=== PATIENT | male | born 1985 | race Hispanic/Latino ===

== ENCOUNTER 2017-01-04 14:38 | Emergency (ER) | payer SELFPAY ==
[2017-01-04] MEDS ORDERED: Ondansetron HCl/PF 4 MG/2 ML Vial ONE ×3 (15:02→16:27)
[2017-01-04 15:19] LABS: #Basophils 0.1 thou/uL (0.0-0.2); #Eosinphils 0.3 thou/uL (0.0-0.7); #Lymphocytes 2.5 thou/uL (1.20-3.40); %Basophils 0.6 % (0.0-1.0); %Eosinophils 1.8 % (0.0-10.0); Hematocrit 46.4 % (42.0-52.0); Mean Platelet Volume 7.3 fL (7.4-10.4); Red Blood Cell (RBC) Count 5.21 mill/uL (4.70-6.10); White Blood Cell (WBC) Count 14.9 thou/uL (4.8-10.8)
--- NOTE | 2017-01-04 15:32 | RAD ---
ABDOMEN ONE VIEW: 01/04/17 HISTORY: Crohn's disease. Abdominal pain. COMPARISON: 10/12/16. FINDINGS: Gas and stool overlie the colon and rectum. Small bowel gas pattern is nonspecific. Metallic clips o verlie the gallbladder fossa. IMPRESSION: No significant abnormalities are demonstrated. POS: [facility]
[2017-01-04 15:35] LABS: Lactic Acid - Sepsis 1.2 mmol/L (0.5-2.2)
[2017-01-04 15:45] LABS: ALT (SGPT) 23 U/L (8-55); AST (SGOT) 20 U/L (5-34); Alkaline Phosphatase 88 U/L (40-150); Anion Gap 15 mmol/L (10-20); BUN (Urea Nitrogen) 10 mg/dL (8.9-20.6); Bilirubin, Total 0.3 mg/dL (0.2-1.2); CK (CPK) 126 U/L (30-200); Calc. Creatinine Clearance 0 mL/min (70-130); Calcium 9.6 mg/dL (7.8-10.44); Carbon Dioxide 19 mmol/L (22-29); Chloride 105 mmol/L (98-107); Estimated GFR-MDRD Greater than 90; Globulin 3.8 g/dL (2.4-3.5); Lipase 14 U/L (8-78); Protein, Total 8.2 g/dL (6.0-8.3)
== END 2017-01-04 17:09 | disposition home or self-care (01) ==
LOC: ERS 14:38
DX: R10.30 Lower abdominal pain, unspecified (principal); Z79.899 Other long term (current) drug therapy
CPT/HCPCS: 74000; 80053; 82550; 83605; 83690; 85025; 96361; 96374; 96375; 96376; J2270; J2405

== ENCOUNTER 2017-02-07 14:36 | Emergency (ER) | payer SELFPAY ==
[2017-02-07 15:11] LABS: #Basophils 0.1 thou/uL (0.0-0.2); #Eosinphils 0.2 thou/uL (0.0-0.7); #Lymphocytes 3.1 thou/uL (1.20-3.40); #Monocytes 0.6 thou/uL (0.11-0.59); #Neutrophils 2.5 thou/uL (1.40-6.50); %Basophils 0.8 % (0.0-1.0); %Eosinophils 3.6 % (0.0-10.0); %Lymphocytes 47.5 % (21.0-51.0); %Monocytes 9.9 % (0.0-10.0); Hematocrit 44.5 % (42.0-52.0); Red Blood Cell (RBC) Count 4.88 mill/uL (4.70-6.10); White Blood Cell (WBC) Count 6.4 thou/uL (4.8-10.8)
[2017-02-07 15:23] LABS: Lactic Acid - Sepsis 1.2 mmol/L (0.5-2.2)
[2017-02-07 15:32] LABS: Bilirubin Negative (Negative); Blood, Urine Negative (Negative); Glucose, Urine (Dipstick) Negative (Negative); Ketone, Urine Negative (Negative); Nitrite Negative (Negative); Protein, Urine (Dipstick) Negative (Neg-Trace); Urobilinogen 0.2 mg/dL (0.2-1.0)
[2017-02-07 15:35] LABS: ALT (SGPT) 29 U/L (8-55); AST (SGOT) 20 U/L (5-34); Alkaline Phosphatase 76 U/L (40-150); Anion Gap 13 mmol/L (10-20); BUN (Urea Nitrogen) 9 mg/dL (8.9-20.6); Bilirubin, Total 0.3 mg/dL (0.2-1.2); Calc. Creatinine Clearance 0 mL/min (70-130); Calcium 9.9 mg/dL (7.8-10.44); Carbon Dioxide 24 mmol/L (22-29); Chloride 106 mmol/L (98-107); Estimated GFR-MDRD Greater than 90; Globulin 3.8 g/dL (2.4-3.5); Protein, Total 8.1 g/dL (6.0-8.3)
[2017-02-07] MEDS ORDERED: Ondansetron HCl/PF 4 MG/2 ML Vial ONE ×2 (15:47→15:48)
[2017-02-07] MEDS ORDERED: Ketorolac Tromethamine 30 MG/ML VIAL ONE ×2 (15:47→16:46)
--- NOTE | 2017-02-07 16:02 | RAD ---
ABDOMEN TWO VIEWS: ONE VIEW CHEST X-RAY: HISTORY: Abdominal pain. COMPARISON: Abdomen two views with one view chest x-ray from 10/12/2016. FINDINGS: The lungs are clear. There are right upper quadrant surgical clips. No dilated loops of large or small bowel. No free air in the hemidiaphragm on the upright view. IMPRESSION: Normal examination. POS: [facility]
[2017-02-07] MEDS ORDERED: predniSONE 20 MG TAB ONE (16:46)
== END 2017-02-07 17:22 | disposition home or self-care (01) ==
LOC: ERS 14:36
DX: K50.90 Crohn's disease, unspecified, without complications (principal); Z79.899 Other long term (current) drug therapy
CPT/HCPCS: 36415; 74022; 80053; 81003; 83605; 83690; 85025; 96361; 96374; 96375; 96376; J1885; J2405; J7506

== ENCOUNTER 2017-02-16 16:55 | Observation (INO) | payer SELFPAY ==
[2017-02-16 17:18] LABS: #Basophils 0.1 thou/uL (0.0-0.2); #Eosinphils 0.1 thou/uL (0.0-0.7); #Lymphocytes 2.9 thou/uL (1.20-3.40); #Monocytes 1.2 thou/uL (0.11-0.59); #Neutrophils 15.5 thou/uL (1.40-6.50); %Basophils 0.4 % (0.0-1.0); %Eosinophils 0.6 % (0.0-10.0); %Lymphocytes 14.8 % (21.0-51.0); %Monocytes 5.9 % (0.0-10.0); Hematocrit 44.6 % (42.0-52.0); Mean Platelet Volume 6.6 fL (7.4-10.4); Red Blood Cell (RBC) Count 4.95 mill/uL (4.70-6.10); White Blood Cell (WBC) Count 19.7 thou/uL (4.8-10.8)
[2017-02-16 17:40] LABS: ALT (SGPT) 32 U/L (8-55); AST (SGOT) 20 U/L (5-34); Alkaline Phosphatase 87 U/L (40-150); Anion Gap 17 mmol/L (10-20); BUN (Urea Nitrogen) 9 mg/dL (8.9-20.6); Bilirubin, Total 0.9 mg/dL (0.2-1.2); Calc. Creatinine Clearance 0 mL/min (70-130); Calcium 9.5 mg/dL (7.8-10.44); Carbon Dioxide 20 mmol/L (22-29); Chloride 101 mmol/L (98-107); Estimated GFR-MDRD Greater than 90; Globulin 3.8 g/dL (2.4-3.5); Lipase 6 U/L (8-78); Protein, Total 8.3 g/dL (6.0-8.3)
[2017-02-16 18:51] LABS: Bilirubin Negative (Negative); Blood, Urine Negative (Negative); Glucose, Urine (Dipstick) Negative (Negative); Ketone, Urine Negative (Negative); Nitrite Negative (Negative); Protein, Urine (Dipstick) Negative (Neg-Trace); Urobilinogen 0.2 mg/dL (0.2-1.0)
[2017-02-16 18:53] LABS: Bacteria/HPF None Seen HPF (None Seen); Hyaline Casts/LPF 0-3 HYALINE CAST LPF (0-3 Hyaline); Squamous Epithelial None Seen HPF (0-3); WBC/HPF None Seen HPF (0-3)
[2017-02-16] MEDS ORDERED: Ketorolac Tromethamine 30 MG/ML VIAL ONE (19:06)
[2017-02-16] MEDS ORDERED: Ondansetron HCl/PF 4 MG/2 ML Vial ONE (19:06)
--- NOTE | 2017-02-16 19:35 | RAD ---
ACUTE ABDOMINAL SERIES 02/16/17 COMPARISON: 02/07/17 INDICATION: Pain. FINDINGS: The lungs are clear. No free air beneath the hemidiaphragms. Bowel gas pattern is nonspecific. There are metallic clips of the right upper abdomen. IMPRESSION: No acute process identified. POS: H
[2017-02-16] MEDS ORDERED: Piperacillin/Tazobactam 4.5 GM in Sodium Chloride 0.9% 100 ML IVPB SCH (22:30)
[2017-02-17] MEDS ORDERED: Ondansetron ODT 4 MG TAB SL PRN (00:05)
[2017-02-17] MEDS ORDERED: Acetaminophen 325 MG TAB PO PRN (00:05)
[2017-02-17 00:13] VITALS: BMI 29.4
[2017-02-17] MEDS ORDERED: Sodium Chloride 0.9% 1,000 ML IV SCH (00:15)
[2017-02-17] MEDS: MORPHINE 10 MG/ML SYRINGE IV PRN ×3 (00:25→08:26)
[2017-02-17] MEDS: Ondansetron HCl/PF 4 MG/2 ML Vial IVP PRN ×2 (02:34→08:26)
[2017-02-17] MEDS ORDERED: Piperacillin/Tazobactam 4.5 GM in Sodium Chloride 0.9% 100 ML IVPB SCH (06:00)
[2017-02-17 11:44] VITALS: TEMP 97.8
--- NOTE | 2017-02-17 12:20 | HP ---
DATE OF ADMISSION: 02/17/2017 CHIEF COMPLAINT: Abdominal pain, nausea, vomiting and diarrhea. HISTORY OF PRESENT ILLNESS: This is a 31-year-old gentleman with a long history of protracted abdom inal pain. He was recently diagnosed over the past year with Crohn's colitis and was started on Hum baldemar injections by Dr. Zaragoza in 10/2016 and has had significant improvement of his symptoms since that time. He has had much fewer admissions for abdominal pain, he has able to tolerate a diet much bet ter. He was seen by Dr. Zaragoza in his office last week was started on oral Flagyl for a mild flare du e to pain, nausea, vomiting. His symptoms worsened 2 days ago. He stated his pain was severe with nausea, vomiting, and diarrhea, and poor p.o. intake. He presented to the emergency department last night, found to have evidence of a colitis flare, but no hematochezia. He has had significant impr ovement with IV morphine, IM Bentyl as well as started on antibiotics. PAST MEDICAL HISTORY: Crohn's colitis, functional diarrhea, chronic pain syndrome. PAST SURGICAL HISTORY: Appendectomy in 2011, right inguinal hernia in 2011, status post cholecystec donell, status post multiple colonoscopies. SOCIAL HISTORY: Former smoker. He quit last year, lives at home. He is unemployed. MEDICATIONS: Flagyl 500 mg twice a day for the past week, Humira 40 mg IM once a week. PSYCHIATRIC: History of anxiety and depression in the past, but much better now that his colitis is better controlled. ALLERGIES: None known. REVIEW OF SYSTEMS: As per the history of present illness. GENERAL: He denies any recent fevers, chills or recent illness. HEENT: Denies upper respiratory symptoms, no cough or congestion. CARDIAC: Denies chest pain, shortness of breath or palpitations. PULMONARY: Denies cough or hemoptysis. GASTROINTESTINAL: As per the history of present illness. Denies tarry stools. Denies blood in the stool. NEUROLOGIC: No weakness, seizures, or syncope. PSYCHIATRIC: Depression and anxiety are much better. OBJECTIVE: VITAL SIGNS: Temperature 97.8, T-max of 98.5, pulse of 82, respirations 18, blood pressure 120/78, pulse ox is 99% on room air. GENERAL: He is awake and alert, in no acute distress. He is resting comfortably in the bed. Mucos a is moist. NECK: Supple. HEART: Regular rate and rhythm without murmurs. LUNGS: Clear bilaterally. ABDOMEN: With positive bowel sounds throughout. He has diffuse tenderness, worse on the left side. No rebound or guarding. No hepatosplenomegaly. EXTREMITIES: No clubbing, cyanosis or edema. LABORATORY AND X-RAY FINDINGS: From last night; white blood cell count 19.7, hemoglobin and hematoc rit 14.9 and 44.6, platelets of 318, sodium 134, potassium 4.1, chloride 101, CO2 20, BUN and creati nine 9 and 0.81, serum glucose 90, calcium of 95. AST and ALT are normal. Lipase was normal at 6. Urinalysis was negative. Abdominal x-ray revealed no acute process. ASSESSMENT AND PLAN: 1. This is a 31-year-old gentleman with a history of Crohn's colitis, now with an apparent flare an elevated white blood cell count. I agree with admission. I will continue IV Zosyn until infectiou s etiology is ruled out. The patient appears to have improved with IM Bentyl, will continue that as well and consult Dr. Zaragoza for evaluation. 2. Leukocytosis. We will repeat CBC as well as continuing antibiotics at this time. 3. History of chronic pain, appears to be better on the Humira. Continue plan per Gastroenterology .
[2017-02-17] MEDS: Morphine PF 1 MG/ML SYR IVP PRN ×2 (12:24→16:05)
[2017-02-17 12:45] LABS: #Basophils 0.1 thou/uL (0.0-0.2); #Eosinphils 0.2 thou/uL (0.0-0.7); #Lymphocytes 2.9 thou/uL (1.20-3.40); #Monocytes 0.7 thou/uL (0.11-0.59); #Neutrophils 4.1 thou/uL (1.40-6.50); %Basophils 1.1 % (0.0-1.0); %Eosinophils 1.9 % (0.0-10.0); %Lymphocytes 36.2 % (21.0-51.0); %Monocytes 8.7 % (0.0-10.0); Hematocrit 42.2 % (42.0-52.0); Mean Platelet Volume 6.8 fL (7.4-10.4); Red Blood Cell (RBC) Count 4.59 mill/uL (4.70-6.10); White Blood Cell (WBC) Count 7.9 thou/uL (4.8-10.8)
[2017-02-17] MEDS ORDERED: Piperacillin/Tazobactam 4.5 GM, Admixture Fee 1 EACH in Sodium Chloride 0.9% 100 ML IVPB SCH (14:00)
[2017-02-17 16:12] VITALS: BP 106/67
--- NOTE | 2017-02-18 14:46 | DIS ---
DATE OF ADMISSION: 02/17/2017 DATE OF AMA: 02/17/2017 ADMISSION DIAGNOSIS: Crohn's colitis flare. HOSPITAL COURSE: This is a 31-year-old gentleman with a history of Crohn's colitis. He has had sev eral years of protracted abdominal pain. He has been doing much better since he was started on Humi ra injections in 10/2016. He was admitted for worsening abdominal pain. He had significant improve ment in the ER with IV morphine, IM Bentyl and antibiotics. There was some concern about infectious colitis, was recommended that he continue on the IV Zosyn until he is seen by GI especially due to his increased white blood cell count. After admission, the patient did not want await any more for the Gastroenterology to evaluate him. He understands the risk, he wanted to leave against medical a dvice. He was told that he would not be able to follow up with my office and would be dismissed fro m our practice, which he leaves against medical advice and [facility]
== END 2017-02-17 17:48 | disposition left against medical advice (07) ==
LOC: ERS 16:55 → T4-A 02-17 00:04
PROVIDERS: ADMIT Family Medicine; ATTEND Family Medicine
DX: K50.90 Crohn's disease, unspecified, without complications (principal); K59.1 Functional diarrhea; G89.4 Chronic pain syndrome; F41.8 Other specified anxiety disorders; D72.829 Elevated white blood cell count, unspecified; Z79.899 Other long term (current) drug therapy; Z90.49 Acquired absence of other specified parts of digestive tract; Z98.890 Other specified postprocedural states; Z87.891 Personal history of nicotine dependence
CPT/HCPCS: 36415; 74022; 80053; 81003; 81015; 83690; 85025; 87040; 96361; 96365; 96366; 96372; 96375; 96376; G0378; J1885; J2270; J2274; J2405; J2543; J7050

== ENCOUNTER 2017-05-11 13:36 | Emergency (ER) | payer OTHER, SELFPAY ==
[2017-05-11 14:02] LABS: #Basophils 0.1 thou/uL (0.0-0.2); #Eosinphils 0.1 thou/uL (0.0-0.7); #Lymphocytes 3.2 thou/uL (1.20-3.40); #Monocytes 0.9 thou/uL (0.11-0.59); #Neutrophils 9.2 thou/uL (1.40-6.50); %Basophils 0.5 % (0.0-1.0); %Eosinophils 0.8 % (0.0-10.0); %Lymphocytes 23.6 % (21.0-51.0); %Monocytes 6.5 % (0.0-10.0); %Neutrophils 68.5 % (42.0-75.0); Hemoglobin 14.3 g/dL (14.0-18.0); Mean Corpuscular Hemoglobin 31.1 pg (27.0-31.0); Mean Platelet Volume 6.8 fL (7.4-10.4); Platelet Count 332 thou/uL (130-400); RBC Distribution Width 12.4 % (11.5-14.5); Red Blood Cell (RBC) Count 4.61 mill/uL (4.70-6.10); White Blood Cell (WBC) Count 13.5 thou/uL (4.8-10.8)
[2017-05-11 14:20] LABS: ALT (SGPT) 22 U/L (8-55); AST (SGOT) 19 U/L (5-34); Albumin 4.4 g/dL (3.5-5.0); Alkaline Phosphatase 81 U/L (40-150); Anion Gap 14 mmol/L (10-20); BUN (Urea Nitrogen) 17 mg/dL (8.9-20.6); Bilirubin, Total 0.6 mg/dL (0.2-1.2); Calc. Creatinine Clearance 0 mL/min (70-130); Calcium 9.4 mg/dL (7.8-10.44); Carbon Dioxide 22 mmol/L (22-29); Chloride 104 mmol/L (98-107); Estimated GFR-MDRD Greater than 90; Globulin 3.5 g/dL (2.4-3.5); Glucose 110 mg/dL (70-105); Lipase 9 U/L (8-78); Potassium 3.8 mmol/L (3.5-5.1); Protein, Total 7.9 g/dL (6.0-8.3); Sodium 136 mmol/L (136-145)
[2017-05-11 15:26] LABS: Bilirubin Negative (Negative); Blood, Urine Negative (Negative); Clarity CLEAR (Clear); Glucose, Urine (Dipstick) Negative (Negative); Leukocyte Negative (Negative); Nitrite Negative (Negative); Protein, Urine (Dipstick) Negative (Neg-Trace); Specific Gravity, Urine 1.028 (1.002-1.036); Urobilinogen 0.2 mg/dL (0.2-1.0)
[2017-05-11] MEDS ORDERED: Ondansetron HCl/PF 4 MG/2 ML Vial ONE (17:56)
[2017-05-11] MEDS ORDERED: predniSONE 20 MG TAB ONE (19:33)
== END 2017-05-11 20:18 | disposition home or self-care (01) ==
LOC: ERS 13:36
DX: K50.90 Crohn's disease, unspecified, without complications (principal)
CPT/HCPCS: 36415; 80053; 81003; 83690; 85025; 85652; 86140; 96372; 96374; 96375; J2270; J2405; J7506

== ENCOUNTER 2017-06-15 07:43 | Inpatient (IN) | payer SELFPAY ==
[2017-06-15] MEDS ORDERED: Ondansetron HCl/PF 4 MG/2 ML Vial ONE (08:00)
[2017-06-15 08:20] LABS: #Eosinphils 0.1 thou/uL (0.0-0.7); #Lymphocytes 1.6 thou/uL (1.20-3.40); #Monocytes 0.9 thou/uL (0.11-0.59); #Neutrophils 14.3 thou/uL (1.40-6.50); %Basophils 0.1 % (0.0-1.0); %Eosinophils 0.5 % (0.0-10.0); %Lymphocytes 9.4 % (21.0-51.0); %Monocytes 5.3 % (0.0-10.0); %Neutrophils 84.7 % (42.0-75.0); Hemoglobin 15.2 g/dL (14.0-18.0); Mean Corpuscular HGB CONC 32.9 g/dL (32.0-36.0); Mean Corpuscular Hemoglobin 29.5 pg (27.0-31.0); Mean Corpuscular Volume 89.5 fl (80.0-94.0); Mean Platelet Volume 7.2 fL (7.4-10.4); Platelet Count 311 thou/uL (130-400); RBC Distribution Width 12.6 % (11.5-14.5); Red Blood Cell (RBC) Count 5.14 mill/uL (4.70-6.10); White Blood Cell (WBC) Count 16.9 thou/uL (4.8-10.8)
[2017-06-15 08:24] LABS: ALT (SGPT) 20 U/L (8-55); AST (SGOT) 16 U/L (5-34); Albumin 4.7 g/dL (3.5-5.0); Alkaline Phosphatase 88 U/L (40-150); Anion Gap 13 mmol/L (10-20); BUN (Urea Nitrogen) 10 mg/dL (8.9-20.6); Bilirubin, Total 0.9 mg/dL (0.2-1.2); Calc. Creatinine Clearance 0 mL/min (70-130); Calcium 10.1 mg/dL (7.8-10.44); Carbon Dioxide 25 mmol/L (22-29); Chloride 103 mmol/L (98-107); Estimated GFR-MDRD Greater than 90; Globulin 3.6 g/dL (2.4-3.5); Glucose 101 mg/dL (70-105); Lipase 8 U/L (8-78); Potassium 4.5 mmol/L (3.5-5.1); Protein, Total 8.3 g/dL (6.0-8.3); Sodium 136 mmol/L (136-145)
[2017-06-15 08:58] LABS: Bilirubin Negative (Negative); Blood, Urine Negative (Negative); Clarity CLEAR (Clear); Glucose, Urine (Dipstick) Negative (Negative); Leukocyte Negative (Negative); Nitrite Negative (Negative); Protein, Urine (Dipstick) Negative (Neg-Trace); Specific Gravity, Urine 1.018 (1.002-1.036); Urobilinogen 0.2 mg/dL (0.2-1.0)
--- NOTE | 2017-06-15 11:07 | RAD ---
KUB AND UPRIGHT: History: Abdominal pain. History of Crohn's disease. Comparison: 09-27-16 FINDINGS: Bowel gas pattern is nonobstructed. The upright film does not include the entire right hemidiaphragm. Only a small portion is excluded. I do not see any signs of free air. It is conceivable that a tiny amount of free air could be missed and if this of clinical concern, then repeat upright film would be suggested. There is evidence of some fluid filled distention to what appears to be a proximal small bowel loops but I see no evidence of obstruction. Post op cholecystectomy changes are noted. IMPRESSION: Minimal fluid filled distention of the bowel loops in the left midabdomen, probably a proximal small bowel loops. No signs that suggest obstruction. POS: [facility]
[2017-06-15 11:19] LABS: Magnesium 2.2 mg/dL (1.6-2.6); Phosphorus 3.2 mg/dL (2.3-4.7)
[2017-06-15 12:15] LABS: Amphetamine Not Detected (NotDetected); Barbiturates Screen Not Detected (NotDetected); Benzodiazepine Screen Not Detected (NotDetected); Cocaine Metabolite Screen Not Detected (NotDetected); Medtox Control Line Valid? VALID (VALID); Medtox Reader # READER 1; Methadone Not Detected (NotDetected); Methamphetamine Not Detected (NotDetected); Opiate Screen Detected (NotDetected); Oxycodone Screen Not Detected (NotDetected); Phencyclidine (PCP) Not Detected (NotDetected); THC/Cannabinoid Screen Not Detected (NotDetected); Tricyclic Screen Not Detected (NotDetected)
[2017-06-15 12:25] VITALS: BMI 29.5
[2017-06-15] MEDS ORDERED: Acetaminophen 325 MG TAB PO PRN (12:31)
[2017-06-15] MEDS ORDERED: Ondansetron ODT 4 MG TAB PO PRN (12:31)
[2017-06-15] MEDS ORDERED: Ondansetron HCl/PF 4 MG/2 ML Vial IVP PRN (12:31)
[2017-06-15] MEDS ORDERED: Calcium Carbonate 500 MG ChewTAB PO PRN (12:31)
[2017-06-15] MEDS: Morphine 2 MG/ML SYRINGE SLOW IVP PRN ×3 (12:55→21:38)
[2017-06-15] MEDS: Sodium Chloride 0.9% 1,000 ML IV SCH ×2 (12:57→20:00)
[2017-06-15] MEDS: HYDROcodone/Acetaminophen 5/325 mg Tablet PO PRN ×2 (14:41→19:54)
--- NOTE | 2017-06-15 20:40 | PDOC.PN ---
- Subjective Encounter Start Date: 06/15/17 Encounter Start Time: 17:00 Patient seen and examined. - Objective Resuscitation Status: Resuscitation Status FULL:Full Resuscitation MAR Reviewed: Yes Vital Signs & Weight: Vital Signs (12 hours) Temp Pulse Resp BP BP Pulse Ox 06/15/17 19:52 98 F 65 18 102/71 96 06/15/17 16:00 98.2 F 60 20 106/68 96 06/15/17 12:30 97.6 F 73 18 06/15/17 12:24 97.6 F 73 18 113/74 96 Weight Weight 200 lb I&O: 06/14/17 06/15/17 06/16/17 06:59 06:59 06:59 Intake Total 1470 Balance 1470 Result Diagrams: 06/16/17 03:51 06/16/17 03:51 Radiology Reviewed by me: Yes (Abd series - No obstruction) Phys Exam - Physical Examination Pt in mild distress due to abd pain HEENT: PERRLA, moist MMs, sclera anicteric Neck: no nodes, no JVD, supple Respiratory: no wheezing, no rales, no rhonchi, clear to auscultation bilateral Cardiovascular: RRR, no significant murmur, no rub no heaves/pulsation Gastrointestinal: soft, no distention, positive bowel sounds mild tenderness maily in RLQ Musculoskeletal: no edema Neurological: non-focal, normal sensation, moves all 4 limbs Psychiatric: normal affect, A&O x 3 Skin: no rash Dx/Plan - Plan out of bed/ambulate, DVT proph w/SCDs * Please see H&P Review of Systems - Review of Systems Constitutional: chills. negative: fever, sweats, weakness, malaise Eyes: negative: Pain, Vision Change, Conjunctivae Inflammation, Eyelid Inflammation, Redness ENT: Mouth Pain (intermittent - improved now). negative: Ear Pain, Ear Discharge, Nose Pain, Nose Discharge, Nose Congestion, Mouth Swelling, Throat Pain, Throat Swelling, Other Respiratory: negative: Cough, Dry, Shortness of Breath, Hemoptysis, SOB with Excertion, Pleuritic Pain, Sputum, Wheezing Cardiovascular: negative: chest pain, palpitations, orthopnea, paroxysmal nocturnal dyspnea, edema, light headedness, other Gastrointestinal: Nausea, Abdominal Pain. negative: Vomiting, Diarrhea, Constipation, Melena, Hematochezia Genitourinary: negative: Dysuria, Frequency, Incontinence, Hematuria, Retention Musculoskeletal: negative: Neck Pain, Shoulder Pain, Arm Pain, Back Pain, Hand Pain, Leg Pain, Foot Pain Skin: Rash (over the groin - maculopapular, no erythema). negative: Lesions, Ruddy, Bruising, Other Neurological: Weakness, Numbness, Incoordination, Change in Speech, Confusion, Seizures, Other - Medications/Allergies Allergies/Adverse Reactions: Allergies Allergy/AdvReac Type Severity Reaction Status Date / Time No Known Drug Allergies Allergy Verified 02/17/17 00:07 Medications: Current Medications Acetaminophen (Tylenol) 650 mg PO Q4H PRN PRN Reason: Headache/Fever or Pain Hydrocodone Bitart/Acetaminophen ([place] 5/325) 1 tab PO Q4H PRN PRN Reason: Moderate Pain (4-6) Last Admin: 06/15/17 19:54 Dose: 1 tab Calcium Carbonate (Tums) 1,000 mg PO Q4H PRN PRN Reason: Heartburn or Indigestion Famotidine (Pepcid) 20 mg SLOW IVP Q12HR [facility] Last Admin: 06/15/17 19:56 Dose: 20 mg Sodium Chloride (Normal Saline 0.9%) 1,000 mls @ 125 mls/hr IV .Q8H [facility] Last Admin: 06/15/17 20:00 Dose: 1,000 mls Morphine Sulfate (Morphine) 2 mg SLOW IVP Q4H PRN PRN Reason: Severe Pain (7-10) Last Admin: 06/15/17 17:10 Dose: 2 mg Ondansetron HCl (Zofran Odt) 4 mg PO Q6H PRN PRN Reason: Nausea/Vomiting Ondansetron HCl (Zofran) 4 mg IVP Q6H PRN PRN Reason: Nausea/Vomiting Last Admin: 06/15/17 17:12 Dose: 4 mg Sodium Chloride (Flush - Normal Saline) 10 ml IVF Q12HR [facility] Last Admin: 06/15/17 20:18 Dose: Not Given Sodium Chloride (Flush - Normal Saline) 10 ml IVF PRN PRN PRN Reason: Saline Flush
[2017-06-15] MEDS ORDERED: Famotidine/PF 20 mg/2ml Vial SLOW IVP SCH (21:00)
[2017-06-16] MEDS: Morphine 2 MG/ML SYRINGE SLOW IVP PRN ×6 (01:03→23:20)
[2017-06-16] MEDS: HYDROcodone/Acetaminophen 5/325 mg Tablet PO PRN ×5 (02:28→20:40)
[2017-06-16 04:24] LABS: #Lymphocytes 0.9 thou/uL (1.20-3.40); #Monocytes 0.1 thou/uL (0.11-0.59); #Neutrophils 6.6 thou/uL (1.40-6.50); %Basophils 0.2 % (0.0-1.0); %Eosinophils 0.2 % (0.0-10.0); %Lymphocytes 11.6 % (21.0-51.0); %Monocytes 0.7 % (0.0-10.0); %Neutrophils 87.3 % (42.0-75.0); Hemoglobin 13.9 g/dL (14.0-18.0); Mean Corpuscular HGB CONC 33.5 g/dL (32.0-36.0); Mean Corpuscular Hemoglobin 30.1 pg (27.0-31.0); Platelet Count 278 thou/uL (130-400); RBC Distribution Width 12.4 % (11.5-14.5); Red Blood Cell (RBC) Count 4.61 mill/uL (4.70-6.10); White Blood Cell (WBC) Count 7.5 thou/uL (4.8-10.8)
[2017-06-16 04:40] LABS: ALT (SGPT) 35 U/L (8-55); AST (SGOT) 22 U/L (5-34); Albumin 4.2 g/dL (3.5-5.0); Alkaline Phosphatase 79 U/L (40-150); Anion Gap 11 mmol/L (10-20); BUN (Urea Nitrogen) 9 mg/dL (8.9-20.6); Bilirubin, Total 0.5 mg/dL (0.2-1.2); Calc. Creatinine Clearance 175 mL/min (70-130); Calcium 9.7 mg/dL (7.8-10.44); Carbon Dioxide 28 mmol/L (22-29); Chloride 102 mmol/L (98-107); Estimated GFR-MDRD Greater than 90; Globulin 3.3 g/dL (2.4-3.5); Glucose 123 mg/dL (70-105); Potassium 4.3 mmol/L (3.5-5.1); Protein, Total 7.5 g/dL (6.0-8.3); Sodium 137 mmol/L (136-145)
--- NOTE | 2017-06-16 04:55 | CON ---
DATE OF CONSULTATION: 06/15/2017 REASON FOR CONSULTATION: Probable Crohn's flare. CONSULTING PHYSICIAN: Salvador Hdz M.D. HISTORY OF PRESENT ILLNESS: The patient is a 31-year-old male with past medical history of GERD, IBS , diverticulosis and small bowel Crohn's disease presenting with complaints of increased abdominal pa in. He states that he was in his usual state of health until approximately 1 week ago when he starte d having increased abdominal pain located primarily in the right upper quadrant/right flank character ized as a sharp stabbing type pain where he further describes it as "it felt like my guts were about to bust open." There were no clear alleviating or exacerbating factors and was because of this that ultimately led him to seek healthcare assistance. He also endorses increased nausea and bilious nonb loody emesis, subjective chills, diarrhea for approximately 2 days, but that self resolved and the ap pearance of small mouth ulcers during the same time. Upon review of his GI clinic notes, he has been noted to have multiple flares over the last year, approximately every 2-3 months with his most recen t hospitalization in 02/2017 for which he left AMA prior to evaluation by GI. He is currently taking Humira 40 mg weekly with no additional therapy. The diagnosis of small bowel Crohn's was made on ca psule endoscopy obtained in late 2015/early 2016 after negative EGD and colonoscopy for origin of the disease. When compared to his presenting complaints of Crohn's disease back then, the abdominal monet n on this admission is consistent with his previous flares. REVIEW OF SYSTEMS: A 10-category review of systems was obtained with all responses negative except f or the pertinent positives as listed in the HPI. PAST MEDICAL HISTORY: Per HPI. PAST SURGICAL HISTORY: Hernia repair, appendectomy, cholecystectomy. FAMILY HISTORY: Colon cancer, maternal grandmother, colon polyps in his mother, ulcerative colitis i n both his mother and brother. SOCIAL HISTORY: Denies any alcohol or illicit drug use, but does vape on occasion. INPATIENT MEDICATIONS: Reviewed. ALLERGIES: No known drug allergies. PHYSICAL EXAMINATION: VITAL SIGNS: Temperature 98, pulse 65, blood pressure 102/71, respiratory rate 18, satting 96% on ro om air. GENERAL: The patient is lying in bed in no acute distress. Alert and oriented x4. NECK: Supple. No JVD noted. CARDIOVASCULAR: Regular rate and rhythm with no discernible murmurs, gallops or rubs. RESPIRATORY: Clear to auscultation bilaterally with no discernible wheezes or rales. ABDOMEN: Normoactive bowel sounds, soft, nondistended. Tenderness to palpation in the midepigastric right upper quadrant and right flank. EXTREMITIES: No cyanosis, clubbing or edema. LABORATORY DATA: CBC with a white blood cell count of 16.9, hemoglobin 15.2, hematocrit 46.1, platel ets 311. Chemistry with a sodium 136, potassium 4.5, chloride 103, CO2 is 25, BUN 10, creatinine 0.7 7, glucose 101, AST 16, ALT 20, alkaline phosphatase 88, total bilirubin 0.9. Infectious stool studi es were negative for E. coli, Campylobacter, Shigella and Clostridium difficile. IMAGING DATA: Abdominal x-ray obtained on admission showed minimal fluid filled distention of the slava wel loops in the left mid abdomen, proximal small bowel loops, but no signs to suggest obstruction. ASSESSMENT AND PLAN: The patient is a 31-year-old male with past medical history of gastroesophageal reflux disease, irritable bowel syndrome, diverticulosis and small bowel Crohn's presenting with pro bable Crohn's flare. Crohn's flare. The patient is presenting with flare of right upper quadrant abdominal pain consisten t with his prior flares of Crohn's disease characterized as sharp, stabbing in nature and associated with nausea, vomiting, and mouth ulcers. He is currently taking Humira 40 mg weekly as part of his o utpatient regimen for control of Crohn's disease with unknown medications added to this regimen in th e past including azathioprine or 6-mercaptopurine. Given the negative infectious stool studies that have been performed thus far, IV steroids should be considered for administration given lack of infec tion and response to steroids in the past for his Crohn's flares. RECOMMENDATIONS: 1. We will continue to follow up on stool culture for any possible infectious pathogens contributing to current Crohn's flare. We will continue Humira 40 mg weekly. If the patient is in the hospital, we will administer that at the prescribed timing. 2. We will start patient on methylprednisolone 40 mg t.i.d. as part of therapy for probable Crohn's flare. 3. We will continue with IV fluids as you are doing, but advance diet as tolerated with weaning back of the IV fluids as he tolerates more and more oral intake. 4. Pain control per primary team. We will continue to follow. Please call with any questions.
[2017-06-16] MEDS: Sodium Chloride 0.9% 1,000 ML IV SCH ×3 (04:56→15:40)
--- NOTE | 2017-06-16 06:13 | HP ---
PRIMARY CARE PHYSICIAN: None at this time. The patient has seen Dr. Fischer in the past. CHIEF COMPLAINT: Abdominal discomfort of 2-3 days duration. HISTORY OF PRESENT ILLNESS: The patient is a 31-year-old male with Crohn's disease, current ly on Humira presented to the Emergency Room with abdominal discomfort that has been intermittent ove r the last 2 months. The pain got worse over the past couple of days. He also has nausea without an y vomiting. The pain was mainly on the right lower quadrant and the suprapubic region. It was achin g, sharp in nature, 10/10, without any relieving factor. The pain was worse on movement and eating. He normally follows with Dr. Zaragoza, Gastroenterology, and is currently on Humira. He also had chills ; however, denies any fever. He denies any diarrhea that is different from his baseline. In the emergency room, his abdominal x-ray was negative for obstructive pathology. He was started on IV fluids. His CRP was 10.98. LFTs were normal. WBC count was 16.9 with 84.7% neutrophils. He re ceived total of 8 mg morphine with Zofran and IV fluid in the emergency room. The case was discussed with Gastroenterology feed preparation operator who recommended stool workup. PAST MEDICAL HISTORY: 1. Crohn's disease. 2. Irritable bowel syndrome. 3. Diverticulosis. 4. Gastroesophageal reflux disease. PAST SURGICAL HISTORY: 1. Appendectomy in 2011. 2. Right inguinal hernia repair in 2011. 3. Cholecystectomy. 4. Multiple colonoscopies. ALLERGIES: No known drug allergies. CURRENT HOME MEDICATIONS: Humira every weekly, Protonix 40 mg daily. SOCIAL HISTORY: The patient currently lives at home. Denies any current use of smoking, alcohol or drug use. FAMILY HISTORY: Negative for premature coronary artery disease. Colon cancer in the maternal grandm other. Ulcerative colitis in both parents. REVIEW OF SYSTEMS/PHYSICAL EXAMINATION/LABORATORY FINDINGS: Please refer to my progress note. IMPRESSION: 1. Crohn's flare. 2. Gastroesophageal reflux disease. 3. Irritable bowel syndrome. 4. Diverticulosis. 5. Abdominal pain secondary to #1. 6. Elevated inflammatory markers. 7. Leukocytosis secondary to #1. PLAN: 1. The patient will be monitored on the medical floor. GI will be consulted. Clear liquid diet. I V hydration. 2. Gastrointestinal prophylaxis. Stool workup has been sent and pending at this time. 3. Pain controlled. 4. Will hold IV steroids and antibiotics per GI. Plan of care was discussed with the patient in detail. He stated understanding. The patient will pr obably require 2-3 days for stabilization.
[2017-06-16] MEDS: Calcium Carbonate + Vit D 1 TAB PO SCH ×2 (09:17→16:12)
[2017-06-16 15:25] LABS: Routine O & P Final report (.)
--- NOTE | 2017-06-16 19:04 | PRG ---
DATE OF SERVICE: 06/16/2017 REASON FOR CONSULTATION: Probable Crohn's flare. SUBJECTIVE: Patient is doing well overnight with decreased pain today. He continues to have pain lo cated primarily in the right side of his abdomen, but is now 5-7/10 in severity and has improved when compared to admission. Overnight, denies any nausea, vomiting, fevers, chills, or GI bleeding. OBJECTIVE: VITAL SIGNS: Temperature 98.3, pulse 95, blood pressure 119/70, respiratory rate 16, satting 99% on room air. GENERAL: Patient is lying in bed in no acute distress. Alert and oriented x4. CARDIOVASCULAR: Regular rate and rhythm with no discernible murmurs, gallops, or rubs. RESPIRATORY: Clear to auscultation bilaterally with no discernible wheezes or rales. ABDOMEN: Normoactive bowel sounds, soft, nondistended, mild tenderness to palpation in the midepigas tric, right upper quadrant, and right flank. EXTREMITIES: No cyanosis, clubbing, or edema. LABORATORY DATA: CBC with a white blood cell count of 7.5, hemoglobin 13.9, hematocrit 41.5, platele ts 278. Chemistry with sodium of 137, potassium 4.3, chloride 102, carbon dioxide 28, BUN 9, creatin ine 0.78, glucose 123. IMAGING DATA: No current GI imaging is available for review. ASSESSMENT AND PLAN: The patient is a 31-year-old male with past medical history of gastroesophageal reflux disease, irritable bowel syndrome, diverticulosis, and small bowel Crohn's presenting with pr obable Crohn's flare. Crohn's flare: Patient is presenting with flare of right upper quadrant abdominal pain consistent wi th his prior flares of Crohn's disease in the past despite taking Humira 40 mg weekly. However, sinc e admission to the hospital, he has had negative workup for infectious etiology, there was subsequent ly placed on IV steroids and has been responding well thus far. Currently, with significant improvem ent in his abdominal pain as well as decrease abdominal distention (per patient). RECOMMENDATIONS: 1. Would continue IV steroids with methylprednisolone 40 mg t.i.d. as part of therapy for his Crohn' s flare. Upon discharge, I would recommend placing the patient on prednisone 40 mg daily and continu ation of that regimen until seen in the GI clinic. 2. Would continue to advance diet as tolerated with advancement of the patient to a regular diet in anticipation to discharge and evaluation of abdominal pain. 3. Pain control per primary team. We will continue to follow. Please call with any questions.
--- NOTE | 2017-06-16 22:06 | PDOC.PN ---
- Subjective Encounter Start Date: 06/16/17 Encounter Start Time: 12:10 Patient seen and examined. No new complaints. No overnight events. Abd pain improving - Objective Resuscitation Status: Resuscitation Status FULL:Full Resuscitation MAR Reviewed: Yes Vital Signs & Weight: Vital Signs (12 hours) Temp Pulse Resp BP Pulse Ox 06/16/17 20:35 98.1 F 65 17 06/16/17 17:30 98.3 F 95 16 119/70 99 06/16/17 11:20 97.6 F 76 18 118/72 93 L Weight Weight 200 lb I&O: 06/15/17 06/16/17 06/17/17 06:59 06:59 06:59 Intake Total 3620 2085 Balance 3620 2085 Result Diagrams: 06/17/17 03:26 06/17/17 03:26 Phys Exam - Physical Examination Constitutional: NAD Respiratory: no wheezing, no rhonchi Cardiovascular: RRR, no rub Gastrointestinal: soft, positive bowel sounds mild gen tenderness/ no rebound/guarding Musculoskeletal: no edema Dx/Plan - Plan out of bed/ambulate, DVT proph w/SCDs IMPRESSION: 1. Crohn's flare. 2. Gastroesophageal reflux disease. 3. Irritable bowel syndrome. 4. Diverticulosis. 5. Abdominal pain secondary to #1. 6. Elevated inflammatory markers. 7. Leukocytosis secondary to #1 PLAN: * GI following. * Cont IV steroids * Pain control * Cont clear liqd diet - advance diet per GI * Resume Humira - Pt takes on wednesdays Review of Systems - Review of Systems Respiratory: negative: Cough, Dry, Shortness of Breath, Hemoptysis, SOB with Excertion, Pleuritic Pain, Sputum, Wheezing Cardiovascular: negative: chest pain, palpitations, orthopnea, paroxysmal nocturnal dyspnea, edema, light headedness, other Gastrointestinal: Abdominal Pain. negative: Nausea, Vomiting, Diarrhea, Constipation, Melena, Hematochezia - Medications/Allergies Allergies/Adverse Reactions: Allergies Allergy/AdvReac Type Severity Reaction Status Date / Time No Known Drug Allergies Allergy Verified 02/17/17 00:07 Medications: Current Medications Acetaminophen (Tylenol) 650 mg PO Q4H PRN PRN Reason: Headache/Fever or Pain Hydrocodone Bitart/Acetaminophen ([place] 5/325) 1 tab PO Q4H PRN PRN Reason: Moderate Pain (4-6) Last Admin: 06/16/17 20:40 Dose: 1 tab Calcium Carbonate (Tums) 1,000 mg PO Q4H PRN PRN Reason: Heartburn or Indigestion Calcium/Vitamin D (Caltrate 600 + Vit D) 1 tab PO BID-WM [facility] Last Admin: 06/16/17 16:12 Dose: 1 tab Sodium Chloride (Normal Saline 0.9%) 1,000 mls @ 70 mls/hr IV .[id number] [facility] Last Admin: 06/16/17 15:40 Dose: Not Given Methylprednisolone Sodium Succinate (Solu-Medrol) 40 mg IVP Q8HR [facility] Last Admin: 06/16/17 21:01 Dose: 40 mg Morphine Sulfate (Morphine) 2 mg SLOW IVP Q4H PRN PRN Reason: Severe Pain (7-10) Stop: 06/17/17 08:00 Last Admin: 06/16/17 19:31 Dose: 2 mg Non-Formulary Medication (Adalimumab [Humira Pen]) 40 mg SC Q7D [facility] Ondansetron HCl (Zofran Odt) 4 mg PO Q6H PRN PRN Reason: Nausea/Vomiting Last Admin: 06/16/17 12:02 Dose: 4 mg Ondansetron HCl (Zofran) 4 mg IVP Q6H PRN PRN Reason: Nausea/Vomiting Last Admin: 06/15/17 17:12 Dose: 4 mg Pantoprazole Sodium (Protonix) 40 mg PO DAILY [facility] Last Admin: 06/16/17 09:17 Dose: 40 mg Sodium Chloride (Flush - Normal Saline) 10 ml IVF Q12HR [facility] Last Admin: 06/16/17 20:43 Dose: 10 ml Sodium Chloride (Flush - Normal Saline) 10 ml IVF PRN PRN PRN Reason: Saline Flush
[2017-06-17] MEDS: Sodium Chloride 0.9% 1,000 ML IV SCH ×2 (01:12→16:28)
[2017-06-17] MEDS: HYDROcodone/Acetaminophen 5/325 mg Tablet PO PRN ×5 (01:12→17:06)
[2017-06-17 04:29] LABS: #Lymphocytes 1.6 thou/uL (1.20-3.40); #Monocytes 0.8 thou/uL (0.11-0.59); #Neutrophils 15.5 thou/uL (1.40-6.50); %Basophils 0.1 % (0.0-1.0); %Eosinophils 0.1 % (0.0-10.0); %Lymphocytes 8.8 % (21.0-51.0); %Monocytes 4.4 % (0.0-10.0); %Neutrophils 86.6 % (42.0-75.0); Hemoglobin 13.5 g/dL (14.0-18.0); Mean Corpuscular HGB CONC 33.6 g/dL (32.0-36.0); Mean Corpuscular Volume 89.4 fl (80.0-94.0); Mean Platelet Volume 7.4 fL (7.4-10.4); Platelet Count 297 thou/uL (130-400); RBC Distribution Width 12.7 % (11.5-14.5); Red Blood Cell (RBC) Count 4.51 mill/uL (4.70-6.10)
[2017-06-17] MEDS: Morphine 2 MG/ML SYRINGE SLOW IVP PRN (04:29)
[2017-06-17 04:43] LABS: ALT (SGPT) 25 U/L (8-55); AST (SGOT) 9 U/L (5-34); Albumin 4.1 g/dL (3.5-5.0); Alkaline Phosphatase 72 U/L (40-150); Anion Gap 11 mmol/L (10-20); BUN (Urea Nitrogen) 14 mg/dL (8.9-20.6); Bilirubin, Total 0.3 mg/dL (0.2-1.2); Calc. Creatinine Clearance 180 mL/min (70-130); Calcium 9.6 mg/dL (7.8-10.44); Carbon Dioxide 25 mmol/L (22-29); Chloride 105 mmol/L (98-107); Estimated GFR-MDRD Greater than 90; Glucose 149 mg/dL (70-105); Magnesium 2.2 mg/dL (1.6-2.6); Phosphorus 3.1 mg/dL (2.3-4.7); Potassium 4.2 mmol/L (3.5-5.1); Protein, Total 7.1 g/dL (6.0-8.3); Sodium 137 mmol/L (136-145)
[2017-06-17] MEDS: Calcium Carbonate + Vit D 1 TAB PO SCH ×2 (08:45→16:27)
--- NOTE | 2017-06-17 11:02 | PDOC.PN ---
- Subjective Encounter Start Date: 06/17/17 Encounter Start Time: 09:20 states he is doing better today. tolerated diet. pain is 8/10 at this moment. pain meds do help alleviate the pain - Objective Resuscitation Status: Resuscitation Status FULL:Full Resuscitation Vital Signs & Weight: Vital Signs (12 hours) Temp Pulse Resp BP Pulse Ox 06/17/17 08:00 97.6 F 65 20 97 06/17/17 07:42 97.6 F 65 20 113/73 97 06/17/17 05:55 98.2 F 60 17 117/69 96 Weight Weight 200 lb I&O: 06/16/17 06/17/17 06/18/17 06:59 06:59 06:59 Intake Total 3620 3610 Balance 3620 3610 Result Diagrams: 06/17/17 03:26 06/17/17 03:26 Phys Exam - Physical Examination Constitutional: NAD HEENT: PERRLA, moist MMs Neck: no nodes, no JVD, supple Respiratory: no wheezing, clear to auscultation bilateral Cardiovascular: RRR, no significant murmur Gastrointestinal: soft, no distention diffuse tenderness without rebound or guarding Musculoskeletal: no edema, pulses present Neurological: non-focal, normal sensation, moves all 4 limbs Lymphatic: no nodes Psychiatric: normal affect, A&O x 3 Dx/Plan (1) Exacerbation of Crohn's disease Code(s): K50.90 - CROHN'S DISEASE, UNSPECIFIED, WITHOUT COMPLICATIONS Status: Acute (2) Abdominal pain Code(s): R10.9 - UNSPECIFIED ABDOMINAL PAIN Status: Acute - Plan cont current plan of care, plan discussed w/ family * . cotinue iv steroids pain mgmt control GI following if pain better tmrw, possibly home on oral steroids
[2017-06-17] MEDS ORDERED: Morphine 2 MG/ML SYRINGE SLOW IVP PRN (11:32)
--- NOTE | 2017-06-17 15:43 | PRG ---
DATE OF SERVICE: 06/17/2017 REASON FOR CONSULTATION: Crohn's flare. SUBJECTIVE: The patient is doing well overnight with no events or problems overnight. He also state s that he has decreased pain today with his pain being approximately 4-5/10 in severity, which is sig nificantly improved from admission. Furthermore, he denies any nausea, vomiting, fevers, chills or G I bleeding. He has had approximately 2 solid bowel movements today as well with no difficulty with d efecation. At this time, he is wondering when he might be able to go home given the improvement in h is clinical status. OBJECTIVE: VITAL SIGNS: Temperature 98.3, pulse 61, blood pressure 112/71, respiratory rate 20, satting 95% on room air. GENERAL: Patient is lying in bed, in no acute distress. He is alert and oriented x4. CARDIOVASCULAR: Regular rate and rhythm with no discernible murmurs, gallops or rubs. RESPIRATORY: Clear to auscultation bilaterally with no discernible wheezes or rales. ABDOMEN: Normoactive bowel sounds, soft, nontender. Mild tenderness to palpation in the right upper quadrant. EXTREMITIES: No cyanosis, clubbing or edema. LABORATORY DATA: CBC with a white blood cell count of 18, hemoglobin 13.5, hematocrit 40.3, platelet s 297. Chemistry with a sodium of 137, potassium 4.2, chloride 105, CO2 25, BUN 14, creatinine 0.77, platelets 149. IMAGING DATA: No current GI imaging is available for review. ASSESSMENT AND PLAN: The patient is a 31-year-old male with past medical history of gastroesophageal reflux disease, irritable bowel syndrome, diverticulosis and small bowel Crohn's disease presenting with probable Crohn's flare. Crohn's flare. The patient presenting with a flare of right upper quadrant abdominal pain consistent with his prior episodes of Crohn's disease while taking Humira 40 mg weekly; however, since admissio n and with the initiation of IV steroids, he has had significant improvement in his abdominal pain as well as having 2 formed bowel movements over the last 24 hours. His infectious stool workup was neg ative and other than an elevated white blood cell count, which is probably due to the IV steroids. H is labs are normal. At this point, the patient could be discharged from the hospital with follow up in the GI clinic within 2 weeks. RECOMMENDATIONS: 1. Would transfer the patient to oral steroids (40 mg daily) until seen in the GI clinic in approxim ately 2 weeks. Please dispense a months worth to make sure that he gets to that appointment. 2. From a GI standpoint, the patient can be discharged home with follow up in the GI clinic. We will sign off at this time. Please call with any additional questions.
[2017-06-17 16:45] VITALS: TEMP 97.9
[2017-06-17 18:18] VITALS: BP 133/84
--- NOTE | 2017-06-17 23:33 | DIS ---
DATE OF ADMISSION: 06/15/2017 DATE OF DISCHARGE: 06/17/2017 DISCHARGE DIAGNOSES: 1. Abdominal pain. 2. Acute exacerbation of Crohn's disease. HOSPITAL COURSE: While the patient was in hospital, the patient was seen by GI. The patient was sta rted on IV steroids with pain management and bowel rest initially. The patient's diet was advanced a s tolerated for which was successful with. The pain had improved as well as clinically overall. Aft er being seen by GI, it was felt that the patient could be discharged home on oral pain medication as well as steroids until seen by GI in the clinic. This was done. Scripts were written. The patient was instructed to follow with primary care physician in 1 week as well as GI in 2 weeks. The patisudheer t will be discharged later today in stable condition. DISPOSITION: To home. DISCHARGE CONDITION: Much improved when he first came in. DISCHARGE ACTIVITY: As tolerated. DISCHARGE DIET: Regular diet. FOLLOWUP APPOINTMENTS: With primary care physician in 1 week as well as GI in 2 weeks. DISCHARGE PLAN: Discharge plan was greater than 30 minutes.
[2017-06-22] MEDS ORDERED: Non-Formulary Item 1 EACH (Adalimumab [Humira Pen] 40 MG) SC SCH (09:00)
[2017-06-22] MEDS ORDERED: Adalimumab [Humira Pen] 40 MG SC SCH (09:00)
== END 2017-06-17 18:08 | disposition home or self-care (01) | DRG 387 ==
LOC: ERS 07:43 → T4-B 10:00
PROVIDERS: ADMIT Internal Medicine; ATTEND Internal Medicine
DX: K50.00 Crohn's disease of small intestine without complications (principal); K21.9 Gastro-esophageal reflux disease without esophagitis; Z79.899 Other long term (current) drug therapy
CPT/HCPCS: 36415; 74019; 80053; 80306; 81003; 83630; 83690; 83735; 84100; 85025; 85652; 86140; 87040; 87045; 87046; 87177; 87328; 87329; 87449; 87899; 96361; 96374; 96375; 96376; A4216; J2270; J2405; J2920; Q0162; S0028

== ENCOUNTER 2017-08-03 08:22 | Emergency (ER) | payer SELFPAY ==
[2017-08-03 09:10] LABS: #Lymphocytes 1.8 thou/uL (1.20-3.40); #Monocytes 0.8 thou/uL (0.11-0.59); #Neutrophils 9.9 thou/uL (1.40-6.50); %Basophils 0.3 % (0.0-1.0); %Eosinophils 0.2 % (0.0-10.0); %Lymphocytes 14.2 % (21.0-51.0); %Monocytes 6.5 % (0.0-10.0); %Neutrophils 78.7 % (42.0-75.0); Hemoglobin 14.7 g/dL (14.0-18.0); Mean Corpuscular HGB CONC 33.5 g/dL (32.0-36.0); Mean Corpuscular Hemoglobin 29.6 pg (27.0-31.0); Mean Corpuscular Volume 88.5 fl (80.0-94.0); Mean Platelet Volume 6.9 fL (7.4-10.4); Platelet Count 288 thou/uL (130-400); RBC Distribution Width 12.5 % (11.5-14.5); Red Blood Cell (RBC) Count 4.98 mill/uL (4.70-6.10); White Blood Cell (WBC) Count 12.6 thou/uL (4.8-10.8)
[2017-08-03] MEDS ORDERED: Pantoprazole 40 MG VIAL ONE (09:14)
[2017-08-03] MEDS ORDERED: Promethazine HCl 25 MG/ML VIAL ONE (09:14)
[2017-08-03] MEDS ORDERED: Morphine 4 MG/ML VIAL ONE (09:14)
[2017-08-03 09:21] LABS: ALT (SGPT) 21 U/L (8-55); AST (SGOT) 14 U/L (5-34); Albumin 4.7 g/dL (3.5-5.0); Alkaline Phosphatase 75 U/L (40-150); Anion Gap 16 mmol/L (10-20); BUN (Urea Nitrogen) 12 mg/dL (8.9-20.6); Bilirubin, Total 0.9 mg/dL (0.2-1.2); Calc. Creatinine Clearance 0 mL/min (70-130); Calcium 9.8 mg/dL (7.8-10.44); Carbon Dioxide 22 mmol/L (22-29); Chloride 103 mmol/L (98-107); Estimated GFR-MDRD Greater than 90; Glucose 112 mg/dL (70-105); Lipase 5 U/L (8-78); Potassium 4.6 mmol/L (3.5-5.1); Protein, Total 7.7 g/dL (6.0-8.3); Sodium 136 mmol/L (136-145)
[2017-08-03 10:17] LABS: Bilirubin Negative (Negative); Blood, Urine Negative (Negative); Clarity CLEAR (Clear); Glucose, Urine (Dipstick) Negative (Negative); Leukocyte Negative (Negative); Nitrite Negative (Negative); Protein, Urine (Dipstick) Negative (Neg-Trace); Specific Gravity, Urine 1.021 (1.002-1.036); Urobilinogen 0.2 mg/dL (0.2-1.0)
[2017-08-03] MEDS ORDERED: HYDROcodone/Acetaminophen 5/325 mg Tablet ONE (11:26)
== END 2017-08-03 11:43 | disposition home or self-care (01) ==
LOC: ERS 08:22
DX: K50.90 Crohn's disease, unspecified, without complications (principal); Z79.899 Other long term (current) drug therapy; Z87.891 Personal history of nicotine dependence
CPT/HCPCS: 80053; 81003; 83690; 85025; 96372; 96374; 96375; C9113; J2270; J2550

== ENCOUNTER 2017-08-30 08:19 | Emergency (ER) | payer OTHER, SELFPAY ==
[2017-08-30 09:10] LABS: #Basophils 0.1 thou/uL (0.0-0.2); #Eosinphils 0.2 thou/uL (0.0-0.7); #Lymphocytes 2.1 thou/uL (1.20-3.40); #Monocytes 0.5 thou/uL (0.11-0.59); #Neutrophils 3.8 thou/uL (1.40-6.50); %Basophils 0.9 % (0.0-1.0); %Lymphocytes 31.9 % (21.0-51.0); %Monocytes 6.9 % (0.0-10.0); %Neutrophils 57.3 % (42.0-75.0); Hemoglobin 16.4 g/dL (14.0-18.0); Mean Corpuscular HGB CONC 34.1 g/dL (32.0-36.0); Mean Corpuscular Hemoglobin 30.3 pg (27.0-31.0); Mean Corpuscular Volume 88.8 fl (80.0-94.0); Mean Platelet Volume 7.2 fL (7.4-10.4); Platelet Count 335 thou/uL (130-400); RBC Distribution Width 12.6 % (11.5-14.5); Red Blood Cell (RBC) Count 5.41 mill/uL (4.70-6.10); White Blood Cell (WBC) Count 6.7 thou/uL (4.8-10.8)
[2017-08-30 09:21] LABS: Bilirubin Small (Negative); Blood, Urine Negative (Negative); Clarity CLEAR (Clear); Glucose, Urine (Dipstick) Negative (Negative); Leukocyte Negative (Negative); Nitrite Negative (Negative); Protein, Urine (Dipstick) Negative (Neg-Trace); Specific Gravity, Urine 1.025 (1.002-1.036); Urobilinogen 0.2 mg/dL (0.2-1.0)
[2017-08-30] MEDS ORDERED: Ondansetron ODT 4 MG TAB ONE ×2 (09:27→12:42)
[2017-08-30 09:29] LABS: ALT (SGPT) 30 U/L (8-55); AST (SGOT) 23 U/L (5-34); Albumin 4.7 g/dL (3.5-5.0); Alkaline Phosphatase 97 U/L (40-150); Anion Gap 9 mmol/L (10-20); BUN (Urea Nitrogen) 13 mg/dL (8.9-20.6); Bilirubin, Total 1.3 mg/dL (0.2-1.2); Calc. Creatinine Clearance 0 mL/min (70-130); Calcium 9.8 mg/dL (7.8-10.44); Carbon Dioxide 29 mmol/L (22-29); Chloride 103 mmol/L (98-107); Estimated GFR-MDRD Greater than 90; Globulin 3.3 g/dL (2.4-3.5); Glucose 97 mg/dL (70-105); Lipase 7 U/L (8-78); Potassium 3.9 mmol/L (3.5-5.1); Sodium 137 mmol/L (136-145)
[2017-08-30 09:38] LABS: Amphetamine Not Detected (NotDetected); Barbiturates Screen Not Detected (NotDetected); Benzodiazepine Screen Not Detected (NotDetected); Cocaine Metabolite Screen Not Detected (NotDetected); Medtox Control Line Valid? VALID (VALID); Medtox Reader # READER 1; Methadone Not Detected (NotDetected); Methamphetamine Not Detected (NotDetected); Opiate Screen Not Detected (NotDetected); Oxycodone Screen Not Detected (NotDetected); Phencyclidine (PCP) Not Detected (NotDetected); THC/Cannabinoid Screen Not Detected (NotDetected); Tricyclic Screen Not Detected (NotDetected)
[2017-08-30] MEDS ORDERED: Lidocaine Viscous Sol 2% 15 ml UD Cup ONE (10:03)
[2017-08-30] MEDS ORDERED: Mag-Al 1200 mg/1200 mg/30 ML UDCUP ONE (10:03)
[2017-08-30] MEDS ORDERED: Pantoprazole 40 MG VIAL ONE (10:03)
[2017-08-30] MEDS ORDERED: Morphine 4 MG/ML VIAL ONE (10:06)
[2017-08-30] MEDS ORDERED: Morphine 10 MG/ML VIAL ONE (12:42)
== END 2017-08-30 14:16 | disposition home or self-care (01) ==
LOC: ERS 08:19
DX: R10.9 Unspecified abdominal pain (principal); R11.2 Nausea with vomiting, unspecified; Z87.891 Personal history of nicotine dependence
CPT/HCPCS: 36415; 80053; 80306; 81003; 83690; 85025; 96361; 96374; 96375; 96376; C9113; J2270; Q0162

== ENCOUNTER 2017-09-30 15:34 | Emergency (ER) | payer SELFPAY ==
[2017-09-30] MEDS ORDERED: Ondansetron ODT 4 MG TAB ONE (16:17)
[2017-09-30 16:18] LABS: #Basophils 0.1 thou/uL (0.0-0.2); #Eosinphils 0.1 thou/uL (0.0-0.7); #Lymphocytes 2.4 thou/uL (1.20-3.40); #Monocytes 1.2 thou/uL (0.11-0.59); #Neutrophils 10.2 thou/uL (1.40-6.50); %Basophils 0.5 % (0.0-1.0); %Eosinophils 1.1 % (0.0-10.0); %Lymphocytes 16.9 % (21.0-51.0); %Monocytes 8.6 % (0.0-10.0); Hemoglobin 14.4 g/dL (14.0-18.0); Mean Corpuscular HGB CONC 34.3 g/dL (32.0-36.0); Mean Corpuscular Hemoglobin 30.1 pg (27.0-31.0); Mean Corpuscular Volume 87.7 fL (78.0-98.0); Mean Platelet Volume 7.1 fL (7.4-10.4); Platelet Count 265 thou/uL (130-400); RBC Distribution Width 12.5 % (11.5-14.5); White Blood Cell (WBC) Count 13.9 thou/uL (4.8-10.8)
[2017-09-30 16:27] LABS: Bilirubin Negative (Negative); Blood, Urine Negative (Negative); Clarity CLEAR (Clear); Glucose, Urine (Dipstick) Negative (Negative); Leukocyte Negative (Negative); Nitrite Negative (Negative); Protein, Urine (Dipstick) Negative (Neg-Trace); Specific Gravity, Urine 1.025 (1.002-1.036); Urobilinogen 0.2 mg/dL (0.2-1.0); pH, Urine 5.5 (5.0-9.0)
[2017-09-30 16:44] LABS: ALT (SGPT) 29 U/L (8-55); AST (SGOT) 22 U/L (5-34); Albumin 4.4 g/dL (3.5-5.0); Alkaline Phosphatase 82 U/L (40-150); Anion Gap 16 mmol/L (10-20); BUN (Urea Nitrogen) 12 mg/dL (8.9-20.6); Bilirubin, Total 0.5 mg/dL (0.2-1.2); Calc. Creatinine Clearance 0 mL/min (70-130); Calcium 9.2 mg/dL (7.8-10.44); Carbon Dioxide 20 mmol/L (22-29); Chloride 102 mmol/L (98-107); Estimated GFR-MDRD Greater than 90; Globulin 3.4 g/dL (2.4-3.5); Glucose 97 mg/dL (70-105); Lipase 11 U/L (8-78); Potassium 4.1 mmol/L (3.5-5.1); Protein, Total 7.8 g/dL (6.0-8.3); Sodium 134 mmol/L (136-145)
--- NOTE | 2017-09-30 20:32 | CT ---
CT ABDOMEN WITH CONTRAST CT PELVIS WITH CONTRAST: DATE: 09/30/17 TIME: 7:36 p.m. HISTORY: 32-year-old male with history of Crohn's disease presents with acute generalized abdominal pain. COMPARISON: Noncontrast CT abdomen of 08/24/16. Contrast enhanced CT of abdomen and pelvis of 08/20/16. TECHNIQUE: IV injection of iodinated contrast media: Isovue Oral contrast media: Administered FINDINGS: Again noted is the tiny 2 mm calculus at a right renal lower pole calyx. Otherwise, the kidneys, abdo oscar aorta, adrenals, pancreas, spleen, and urinary bladder, are normal. No signs of acute colonic d iverticulitis. Suture line along the distal tip of the cecum. Absent appendix. No abscess within the abdominal cavity or pelvic cavity. No ascites or pneumoperitoneum. No small bowel dilation. Cholecyst ectomy clips in the gallbladder fossa. No pleural effusion. Streaky densities of bilateral lung bases probably represent subsegmental atelectasis. Low hepatic attenuation consistent with fatty liver. IMPRESSION: 1. Hepatic steatosis. 2. Otherwise no acute findings. 3. Nonobstructing tiny 2 mm right calculus of kidney (nephrolithiasis). 4. Status post cholecystectomy and appendectomy. FELICIA Baker POS: [facility]
[2017-09-30] MEDS ORDERED: Ketorolac Tromethamine 30 MG/ML VIAL ONE (20:58)
[2017-09-30] MEDS ORDERED: HYDROcodone/Acetaminophen 10/325 mg Tablet ONE (21:15)
== END 2017-09-30 21:46 | disposition home or self-care (01) ==
LOC: ERS 15:34
DX: R10.9 Unspecified abdominal pain (principal); Z87.891 Personal history of nicotine dependence
CPT/HCPCS: 74177; 80053; 81003; 83690; 85025; 96361; 96374; 96375; 96376; J1885; J2270; Q0162

== ENCOUNTER 2017-10-02 11:19 | Day surgery (SDC) | payer SELFPAY ==
[2017-10-02 12:08] LABS: #Basophils 0.1 thou/uL (0.0-0.2); #Eosinphils 0.2 thou/uL (0.0-0.7); #Lymphocytes 2.7 thou/uL (1.20-3.40); #Monocytes 0.7 thou/uL (0.11-0.59); #Neutrophils 2.3 thou/uL (1.40-6.50); %Basophils 1.6 % (0.0-1.0); %Eosinophils 2.7 % (0.0-10.0); %Lymphocytes 45.7 % (21.0-51.0); %Monocytes 11.4 % (0.0-10.0); %Neutrophils 38.7 % (42.0-75.0); Mean Corpuscular HGB CONC 34.2 g/dL (32.0-36.0); Mean Corpuscular Hemoglobin 30.7 pg (27.0-31.0); Mean Corpuscular Volume 89.9 fL (78.0-98.0); Mean Platelet Volume 7.2 fL (7.4-10.4); Platelet Count 276 thou/uL (130-400); RBC Distribution Width 12.5 % (11.5-14.5); Red Blood Cell (RBC) Count 4.87 mill/uL (4.70-6.10); White Blood Cell (WBC) Count 5.8 thou/uL (4.8-10.8)
[2017-10-02] MEDS ORDERED: Ondansetron ODT 4 MG TAB ONE (12:22)
[2017-10-02 12:30] LABS: ALT (SGPT) 40 U/L (8-55); AST (SGOT) 22 U/L (5-34); Albumin 4.3 g/dL (3.5-5.0); Alkaline Phosphatase 73 U/L (40-150); Anion Gap 14 mmol/L (10-20); BUN (Urea Nitrogen) 7 mg/dL (8.9-20.6); Bilirubin, Total 0.4 mg/dL (0.2-1.2); Calc. Creatinine Clearance 0 mL/min (70-130); Calcium 9.7 mg/dL (7.8-10.44); Carbon Dioxide 25 mmol/L (22-29); Chloride 104 mmol/L (98-107); Estimated GFR-MDRD Greater than 90; Globulin 3.4 g/dL (2.4-3.5); Glucose 93 mg/dL (70-105); Lipase Less than 4 U/L (8-78); Potassium 4.5 mmol/L (3.5-5.1); Protein, Total 7.7 g/dL (6.0-8.3); Sodium 138 mmol/L (136-145)
[2017-10-02] MEDS ORDERED: CEFAZOLIN 1 GM VIAL ONE (13:13)
[2017-10-02] MEDS ORDERED: Ketorolac Tromethamine 30 MG/ML VIAL ONE (13:28)
[2017-10-02] MEDS ORDERED: Fentanyl 250 MCG/5 ML VIAL ONE (13:54)
[2017-10-02] MEDS ORDERED: Succinylcholine Chloride 20 MG/ML 10 ml SYRINGE FS ONE (13:54)
[2017-10-02] MEDS ORDERED: Bupivacaine HCl 0.5%/Epinephrine 1:200,000/PF 30 ml Vial ONE (13:59)
[2017-10-02] MEDS ORDERED: Lidocaine 2% 10 ML INJ ONE (13:59)
[2017-10-02] MEDS ORDERED: Midazolam HCl 2 mg/2 ml Vial ONE (14:08)
--- NOTE | 2017-10-02 15:07 | HP ---
HISTORY OF PRESENT ILLNESS: Dayne Reagan is a 32-year-old male with an umbilical hernia. He was in the emergency room 2 days ago and this was reduced. He returns today again incarcerated, red uced again. Two days ago, he had a CAT scan of the abdomen and pelvis essentially unremarkable. The patient is engaged. He has been helping moving furniture. ALLERGIES: None. TOBACCO: None. ALCOHOL: None. MEDICATIONS: Protonix, Bentyl, Humira subcu q. 7 days. PAST MEDICAL HISTORY: Crohn disease, obesity. PAST SURGICAL HISTORY: Laparoscopic appendectomy, laparoscopic cholecystectomy, GERD, IBS, diverticu losis. Apparently, Crohn's in diagnosis was made by capsular endoscopy 2015 or 2016 after negative E GD and colonoscopy. He was recently evaluated in 06/2017 for abdominal pain thought to be a flare of his Crohn's, seen by Dr. Galo. FAMILY HISTORY: Noncontributory. He does vape occasionally. REVIEW OF SYSTEMS: Ten point noncontributory. PHYSICAL EXAMINATION: VITAL SIGNS: 86 kilograms, respiratory rate 20, 97.8 degrees, heart rate 90, 160/80. HEAD, EARS, EYES, NOSE, and THROAT: Unremarkable. LUNGS: Clear to auscultation. CARDIAC: Regular rate and rhythm without murmur or gallop. ABDOMEN: Soft. Umbilical hernia with incarcerated fat, bulk of which has been reduced previously. Obese abdomen. EXTREMITIES: Unremarkable. Neurologically intact. LYMPHATICS: Axilla, groins, and neck without lymphadenopathy. SKIN: Normal color. NEUROLOGIC: No focal defect. LABORATORY DATA: White count 5.8, hemoglobin 15. Basic metabolic profile normal. ASSESSMENT AND PLAN: 1. Recurrent incarcerated hernia. We will plan repair as an outpatient. He has been n.p.o. We javan l plan that today, Tuesday. He understands risks, benefits, and consents. 2. Crohn disease, on Humira. 3. History of right inguinal hernia repair. 4. History of laparoscopic cholecystectomy. 5. History of appendectomy. 6. Obesity.
[2017-10-02] MEDS ORDERED: Morphine 4 MG/ML VIAL ONE ×3 (15:38→16:59)
[2017-10-02] MEDS ORDERED: Promethazine HCl 25 MG/ML VIAL ONE (16:07)
[2017-10-02] MEDS ORDERED: HYDROcodone/Acetaminophen 5/325 mg Tablet ONE (17:12)
--- NOTE | 2017-10-02 21:52 | OP ---
DATE OF PROCEDURE: 10/02/2017 PREOPERATIVE DIAGNOSIS: Incarcerated umbilical hernia. POSTOPERATIVE DIAGNOSIS: Incarcerated umbilical hernia, incarcerated with fat omentum postop. PROCEDURE: Umbilical hernia repair with PVP 4 cm mesh and reinforcement of preperitoneal fascial doyle sure. SURGEON: Sarmad Frazier M.D. ANESTHESIA: General. Local 0.5% Marcaine with epinephrine, 30 mL, mixed with 2% Xylocaine, 10 mL, t otal volume mixture used. PROCEDURE: Patient was taken to the operating room where under general anesthesia, abdomen was prepa red with ChloraPrep, draped in routine fashion. Infraumbilical incision made and carried down to the skin and subcutaneous tissue, and umbilicus from the hernia sac, which was dissected free from the fascial edges. A 4 cm PVP mesh placed in the preperitoneal space controlled with a strap. Fascia approximated [id number]-[id number] with interrupted sutures of 0 PDS pop-offs incorporating mesh int o the fascial closure. Straps excised. Sutures tied. Subcutaneous tissues approximated with 3-0 Mo nocryl, skin with subdermal 4-0 Monocryl and DermaGlue applied.
== END 2017-10-02 17:55 | disposition home or self-care (01) ==
LOC: ERS 11:19
PROVIDERS: ATTEND Specialist
PROC: 0WUF0JZ Supplement Abdominal Wall with Synthetic Substitute, Open Approach (ICD-10-PCS; principal; 2017-10-02)
DX: K42.0 Umbilical hernia with obstruction, without gangrene (principal); E66.9 Obesity, unspecified; K50.90 Crohn's disease, unspecified, without complications; Z90.89 Acquired absence of other organs; Z90.49 Acquired absence of other specified parts of digestive tract
CPT/HCPCS: 80053; 83690; 85025; 96374; J0131; J0670; J0690; J1885; J2250; J2270; J2550; J3010; Q0162

== ENCOUNTER 2017-10-23 15:25 | Inpatient (IN) | payer SELFPAY ==
[~2017-10-23 15:25] MED LIST: ISOVUE-370 76%-LOCM 1 ML ONE
[2017-10-23] MEDS ORDERED: Morphine 4 MG/ML VIAL ONE ×2 (16:15→18:10)
[2017-10-23] MEDS ORDERED: Ondansetron HCl/PF 4 MG/2 ML Vial ONE (16:15)
[2017-10-23 16:33] LABS: #Basophils 0.1 thou/uL (0.0-0.2); #Eosinphils 0.1 thou/uL (0.0-0.7); #Lymphocytes 2.2 thou/uL (1.20-3.40); #Monocytes 0.9 thou/uL (0.11-0.59); #Neutrophils 11.3 thou/uL (1.40-6.50); %Basophils 0.4 % (0.0-1.0); %Eosinophils 0.8 % (0.0-10.0); %Lymphocytes 14.8 % (21.0-51.0); %Monocytes 6.1 % (0.0-10.0); %Neutrophils 77.9 % (42.0-75.0); Hemoglobin 14.9 g/dL (14.0-18.0); Mean Corpuscular HGB CONC 34.9 g/dL (32.0-36.0); Mean Corpuscular Hemoglobin 30.3 pg (27.0-31.0); Mean Corpuscular Volume 86.9 fL (78.0-98.0); Mean Platelet Volume 6.8 fL (7.4-10.4); Platelet Count 306 thou/uL (130-400); Red Blood Cell (RBC) Count 4.91 mill/uL (4.70-6.10); White Blood Cell (WBC) Count 14.5 thou/uL (4.8-10.8)
[2017-10-23 16:39] LABS: Bilirubin Negative (Negative); Blood, Urine Negative (Negative); Clarity CLOUDY (Clear); Glucose, Urine (Dipstick) Negative (Negative); Leukocyte Negative (Negative); Nitrite Negative (Negative); Protein, Urine (Dipstick) Negative (Neg-Trace); Specific Gravity, Urine 1.036 (1.002-1.036)
[2017-10-23 16:56] LABS: ALT (SGPT) 29 U/L (8-55); AST (SGOT) 20 U/L (5-34); Albumin 4.4 g/dL (3.5-5.0); Alkaline Phosphatase 84 U/L (40-150); Anion Gap 14 mmol/L (10-20); BUN (Urea Nitrogen) 15 mg/dL (8.9-20.6); Bilirubin, Total 1.3 mg/dL (0.2-1.2); Calc. Creatinine Clearance 0 mL/min (70-130); Calcium 9.7 mg/dL (7.8-10.44); Carbon Dioxide 24 mmol/L (22-29); Chloride 104 mmol/L (98-107); Estimated GFR-MDRD Greater than 90; Globulin 3.4 g/dL (2.4-3.5); Glucose 129 mg/dL (70-105); Lipase 12 U/L (8-78); Potassium 4.2 mmol/L (3.5-5.1); Protein, Total 7.8 g/dL (6.0-8.3); Sodium 138 mmol/L (136-145)
--- NOTE | 2017-10-23 17:22 | CT ---
CONTRAST ENHANCED CT IMAGES OF THE ABDOMEN AND PELVIS: HISTORY: A 32-year-old with a history of fever and chills. Umbilical pain. TECHNIQUE: IV contrast was given. Unfortunately, oral contrast was not given. This does decrease the sensitivi ty for detection of pathology. FINDINGS: The lung bases are unremarkable. No evidence of free intraperitoneal air is seen. The liver contains tiny areas of hypodensity, most compatible with hepatic cysts, unchanged since the previous comparison CT from 09/30/2017. The spleen is unremarkable. The pancreas is unremarkable. The gallbladder has been surgically removed. The adrenal glands are unremarkable. Tiny, nonobstruc ting calculi are seen in the lower pole of the right kidney. No evidence of hydroureteronephrosis is seen. There are some areas of small bowel thickening and mil d dilatation in the region of the jejunum, unchanged since the previous comparison CT [facility]. Surgical neo are seen in the terminal ileum. There is a newly developed, approximately 2.6 x 1 cm oval density, just posterior to the umbilicus. This may represent a small retroumbilical abscess. This area was not present on the patient's previo us comparison CT. There is some thickening of the umbilical soft tissues as well. The rest of the abdomen and pelvis is unremarkable. IMPRESSION: Area of newly developed umbilical dermal thickening with posterior umbilical intraperitoneal area of newly developed, well circumscribed density, possibly representing an abscess or fluid collection. POS: [facility]
[2017-10-23] MEDS ORDERED: Piperacillin/Tazobactam 3.375 GM VIAL ONE (17:28)
[2017-10-23] MEDS ORDERED: Ketorolac Tromethamine 30 MG/ML VIAL ONE (18:48)
[2017-10-23] MEDS ORDERED: Ondansetron ODT 4 MG TAB SL PRN (21:01)
[2017-10-23] MEDS: D5 1/2 NS w/20 mEq KCL 1,000 ML IV SCH (21:48)
[2017-10-23] MEDS: Piperacillin/Tazobactam 3.375 GM in Sodium Chloride 0.9% 100 ML IVPB SCH (23:19)
[2017-10-24 03:21] VITALS: BMI 30.7
[2017-10-24] MEDS: Ondansetron HCl/PF 4 MG/2 ML Vial IVP PRN (04:46)
[2017-10-24] MEDS: D5 1/2 NS w/20 mEq KCL 1,000 ML IV SCH ×2 (04:53→18:46)
[2017-10-24] MEDS: Piperacillin/Tazobactam 3.375 GM in Sodium Chloride 0.9% 100 ML IVPB SCH ×2 (04:54→11:38)
[2017-10-24 11:13] LABS: #Basophils 0.1 thou/uL (0.0-0.2); #Eosinphils 0.1 thou/uL (0.0-0.7); #Lymphocytes 2.9 thou/uL (1.20-3.40); #Monocytes 0.8 thou/uL (0.11-0.59); #Neutrophils 4.5 thou/uL (1.40-6.50); %Basophils 0.9 % (0.0-1.0); %Eosinophils 1.2 % (0.0-10.0); %Lymphocytes 34.3 % (21.0-51.0); %Monocytes 9.7 % (0.0-10.0); %Neutrophils 53.9 % (42.0-75.0); Mean Corpuscular HGB CONC 33.6 g/dL (32.0-36.0); Mean Corpuscular Volume 89.3 fL (78.0-98.0); Platelet Count 252 thou/uL (130-400); Red Blood Cell (RBC) Count 4.32 mill/uL (4.70-6.10); White Blood Cell (WBC) Count 8.4 thou/uL (4.8-10.8)
[2017-10-24] MEDS ORDERED: Ketorolac Tromethamine 30 MG/ML VIAL IVP PRN (12:35)
[2017-10-24] MEDS ORDERED: Acetaminophen 1,000 MG in Premix Bag 1 BAG IVPB PRN (12:35)
[2017-10-24] MEDS ORDERED: Ketorolac Tromethamine 30 MG/ML VIAL IVP SCH (12:45)
[2017-10-24] MEDS ORDERED: ISOVUE-370 76%-LOCM 1 ML ONE (12:54)
[2017-10-24] MEDS ORDERED: Iopamidol 370 76% 50 ML VIAL FS ONE (12:54)
[2017-10-24] MEDS ORDERED: Acetaminophen 1,000 MG in Premix Bag 1 BAG IVPB SCH (13:00)
--- NOTE | 2017-10-24 13:07 | HP ---
HISTORY OF PRESENT ILLNESS: Dayne Reagan is a 32-year-old male patient, who presented to the [facility] room with incarcerated umbilical hernia and underwent repair, mesh, PVP, preperitoneal reinforc ement of fascial closer, 10/02/2017. The patient postoperatively had quite a bit of pain, but this r esolved. I saw him in my office and he had some question about inferior skin flap, and he was starte d on preventive antibiotics for a 7-day course. The patient states that, last week, he was feeling g reat, not having any pain, and then he began having acute pain in right abdomen that radiated to his right testicle. This did not involve the umbilical area. He presented to the emergency room. White count was 14,000. He underwent a CAT scan of the abdomen and pelvis revealing a small fluid collect ion beneath the fascia. This was read out by the radiologist as possible postoperative fluid collect ion or abscess. The patient was told in the emergency room that he had an abscess and needed surgica l attention. He was admitted to the surgical service. The patient denies having any fever. He micah es having any pain about his umbilicus. All of these pain and discomfort in his right abdomen radiat ing to his right testicle. On this noncontrast CAT scan, obtained on admission, there were no suspic ious changes to suggest an exacerbation of his Crohn's disease. He is followed by Dr. Zaragoza for his C rohn's disease. He receives Humira injections weekly, but has not received an injection in 2 weeks, because of recent umbilical hernia repair. His white count on admission was 14,000 yesterday; I rech ecked today, is 8000; hemoglobin is stable. The patient is still having quite a bit of pain, right l ower quadrant, radiating to his testicle. On exam, his right testicle is tender to touch, more so th an his left, and he has exquisite tenderness in his external ring without evidence of an inguinal her joshua. There has been no clinical evidence or history of mass in his right groin. I have discussed with the patient and his fiancee my impression that this pain, he is having, is not related to his umbilical hernia repair and that the mesh is not infected. I personally reviewed the CAT scan, and the fluid collection is probably a postoperative fluid collection as identified by the radiologist and not an abscess. The patient's current symptoms are a different problem than his umbi lical hernia repair. If were having problems or questions regarding his umbilical hernia repair, alt bryan the postoperative fluid collection is in the preperitoneal space, intraabdominal, and I would r ecommend if explored to do a laparoscopy, but I do not think that is necessary. We will obtain a CAT scan of abdomen and pelvis with p.o. and IV contrast and make further recommenda tions. His nurse will call me when he returns to the room. ALLERGIES: None. MEDICATIONS: Humira weekly, although he has not had this for 2 weeks. He is currently receiving pip eracillin, which I will discontinue. He is receiving morphine for pain at home. He is on Protonix 4 0 mg a day, Bentyl 10 mg q.i.d., and Humira injections every week at Dr. Zaragoza's office. PAST SURGICAL HISTORY: EGD by Dr. Chaves, 2017, grade A esophagitis, gastritis. Normal colonoscopy t o TI. Random biopsies obtained. It was felt his pain was likely from irritable bowel syndrome at th at time in 2017. Patient has Crohn's disease made by capsule endoscopy 2015 or early 2016. EGD and colonoscopy have been negative. PHYSICAL EXAMINATION: VITAL SIGNS: 5 feet 8 inches, 201 pounds, 97.9, 71,18, 113/75 LUNGS: Clear to auscultation. CARDIAC: Regular rate and rhythm without murmur, rub, or gallop. ABDOMEN: Soft. Umbilical area looks healthy. There are no signs of infection. He has tenderness i n his right lower quadrant. His right testicle is tender relative to his left. The external ring is slightly tender. No evidence of an inguinal hernia examined while standing, Valsalva. ASSESSMENT AND PLAN: Abdominal pain of uncertain etiology. We will repeat his CAT scan. We will tr eat him with doxycycline orally. We will discontinue the Zosyn. We will consult GI. We will resume his diet after CAT scan results are available.
[2017-10-24] MEDS ORDERED: HYDROcodone/Acetaminophen 5/325 mg Tablet PO PRN (14:06)
[2017-10-24] MEDS ORDERED: traMADol HCl 50 MG TAB PO PRN (14:07)
[2017-10-24] MEDS ORDERED: Ibuprofen 600 MG TAB PO PRN (14:11)
[2017-10-24] MEDS: HYDROcodone/Acetaminophen 5/325 mg Tablet PO PRN ×3 (14:59→22:40)
--- NOTE | 2017-10-24 15:33 | CT ---
CONTRAST ENHANCED CT ABDOMENA ND PELVIS: HISTORY: Umbilical pain. Follow up recent abscess. COMPARISON: CT from 10/23/2017. TECHNIQUE: Contrast enhanced CT images of the abdomen and pelvis were obtained after the administration of IV an d oral contrast. FINDINGS: The lung bases demonstrate interval development of bibasilar areas of atelectasis. Areas of hypodens ity are again seen in the left hepatic lobe. The spleen is unremarkable. No significant interval ch anges noted. There continues to be some thickening of the umbilical skin surface. The soft tissue c ollection just posterior to the umbilicus is again seen, unchanged since the previous exam. No other significant interval changes seen. IMPRESSION: Continued umbilical and retroumbilical areas of density, not significantly changed since the previous examination from one day earlier. POS: [facility]
--- NOTE | 2017-10-24 16:15 | ULT ---
TESTICULAR ULTRASOUND: History: Right sided testicular pain. Technique: Multiplanar grayscale and color doppler images were obtained in a testicular/scrotal ultra sound. Spectral analysis of the doppler waveforms were performed. FINDINGS: The testicles are normal in echogenicity without focal lesions and demonstrate normal symmetric inter nal flow. There is a small left sided hydrocele. The epididymi are normal in appearance without focal abnormality. IMPRESSION: No significant testicular/scrotal abnormality. POS: [facility]
[2017-10-24] MEDS: traMADol HCl 50 MG TAB PO PRN (17:47)
[2017-10-24] MEDS: Ciprofloxacin 500 MG TAB PO SCH (21:18)
[2017-10-24] MEDS: Doxycycline 100 MG CAP PO SCH (21:18)
--- NOTE | 2017-10-25 00:10 | CON ---
DATE OF CONSULTATION: 10/24/2017 HISTORY OF PRESENT ILLNESS: The patient is a 32-year-old gentleman well known to me from a long history of Crohn's disease. Crohn's disease was made on the basis of small bowel capsule endosc opy done in [place]. Those images have never been seen. We have requested records from [place] and ne eufeima received that report. The patient is having 1 to 2-week history of right upper quadrant pain. T his pain is radiating into his lower quadrants. Dr. Frazier reports it has been radiating into his te sticle, but the patient does not report that. He has had some loose stools, which he say are his bas rayo. He has not lost any weight. He has been taking his Humira, but has been off it for recent um bilical hernia repair. This was performed approximately 3 weeks ago. PAST MEDICAL HISTORY: Significant for Crohn's. PAST SURGICAL HISTORY: Significant for umbilical hernia repair, appendectomy, cholecystectomy. ALLERGIES: No known allergies. SOCIAL HISTORY: Drinks occasionally. Does not use drugs. Former smoker. FAMILY HISTORY: Negative for inflammatory bowel disease. REVIEW OF SYSTEMS: Ten systems were reviewed and were negative except for above. PHYSICAL EXAMINATION: GENERAL: Shows a well-developed, well-nourished male in no acute distress. VITAL SIGNS: Temperature 97.9, pulse 71, respiratory rate 18, blood pressure 113/75. HEENT: Unremarkable. NECK: Supple. CHEST: Clear. CARDIOVASCULAR: Regular rate and rhythm. ABDOMEN: Tender in the right upper quadrant and periumbilical area. His umbilicus is postsurgical, but no inflammation, erythema, or fluctuance is noted. RECTAL: Deferred. EXTREMITIES: Normal. NEUROLOGIC: Nonfocal. DIAGNOSTIC DATA: Abdominal and pelvic CT done on admission showed some umbilical dermal thickening. Repeat CT of the abdomen showed no changes and testicular ultrasound was normal. LABORATORY DATA: Shows normal white blood cell count of 8.4, hemoglobin 13, hematocrit 38.6. C-reac tive protein is 5.36, total bilirubin 1.3, glucose 129. Urinalysis is normal. ASSESSMENT: 1. Crohn's disease on the basis of small bowel capsule endoscopy. 2. Right upper quadrant pain - possible Crohn's flare. 3. Recent umbilical surgery. RECOMMENDATIONS: 1. Resume Humira - the patient was told to bring in his Humira shot and he can receive that in the h ospital. 2. Begin IV steroids.
[2017-10-25] MEDS: HYDROcodone/Acetaminophen 5/325 mg Tablet PO PRN ×3 (01:52→12:32)
[2017-10-25] MEDS: Ciprofloxacin 500 MG TAB PO SCH (05:11)
[2017-10-25] MEDS: traMADol HCl 50 MG TAB PO PRN ×2 (05:11→14:48)
[2017-10-25] MEDS: Ondansetron HCl/PF 4 MG/2 ML Vial IVP PRN (08:30)
[2017-10-25] MEDS ORDERED: Polyethylene Glycol 3350 17 GM Packet PO SCH (09:00)
[2017-10-25] MEDS: Doxycycline 100 MG CAP PO SCH (09:37)
[2017-10-25] MEDS ORDERED: Mag-Al 1200 mg/1200 mg/30 ML UDCUP PO PRN (12:28)
[2017-10-25 15:54] VITALS: BP 128/82; TEMP 98.1
--- NOTE | 2017-10-25 18:12 | PRG ---
DATE OF SERVICE: 10/25/2017 Mr. Reagan is doing well today. His pain is much better controlled. He has been on IV steroids. I angel ve talked to Dr. Fantasma Zaragoza and plan is to discharge him home on prednisone 40 mg a day for 7 days, t apering 10 mg a week for the next month down to 10 mg per day for a week in the final week and discon tinuing. He was given [place] 5/325, #40. He will follow up with Dr. Zaragoza in 4-6 weeks. Follow up wi th Dr. Frazier in 3-4 weeks. The patient still has some right-sided abdominal pain, but it seems to b e improving. We will send him home with doxycycline and Cipro for 10 days. He will take MiraLax onc e or twice a day.
--- NOTE | 2017-10-26 02:59 | DIS ---
DATE OF ADMISSION: 10/23/2017 DATE OF DISCHARGE: 10/25/2017 DISCHARGE DIAGNOSES: Abdominal pain, uncertain etiology; Crohn's disease by capsule endoscopy, follo wed by Dr. Zaragoza; several weeks status post umbilical hernia repair with mesh. PROCEDURES DURING THIS HOSPITALIZATION: CT scan of abdomen and pelvis in the ER without contrast, CT scan of abdomen and pelvis in the hospital with contrast, ultrasound of the testicle. CONSULTATION: Dr. Zaragoza. HISTORY: A 32-year-old male patient admitted on 10/23/2017 complaining of right-sided abdominal pain radiating to his right testicle. The patient is status post open umbilical hernia repair, 8 with PVP fascial reinforcement. I saw him in the office and there is some question about his infer ior skin flap, and he was started on preventative antibiotic for 7 days. His pain was improving and prior to this admission, he was pain-free. Then, he developed sudden onset of pain on the day of adm ission. CAT scan revealed fluid collection beneath the umbilicus, but his pain is on the right side of his abdomen radiating to his scrotum. His white count on admission was 14, recheck next day was 8 . He was seen by the emergency room physician, who told he had an intra-abdominal infection related to his hernia repair and admitted for intravenous antibiotics and surgical attention. When I saw him the next morning, it was clear that he did not have pain around his umbilicus. The findings on CAT scan were postoperative fluid collection expected after any umbilical hernia repair. His pain is on the right side of his abdomen. There were no signs of infection clinically or in laboratory. He was afebrile. Repeat CT scan of abdomen and pelvis p.o. and IV contrast was unremarkable. Testicular u ltrasound was unremarkable. Dr. Fantasma Zaragoza saw him and noted his numerous other admissions for simil ar type pains. He was started on a steroid taper and discharged home on 40 mg a day of prednisone fo r a week, 30 mg of prednisone a day for a week, 20 mg of prednisone for a week, 10 mg of prednisone a day for a week, and then discontinue. He was sent home with Font[place] 5/325, #40, and instructed to eddi Gruber. He will follow up with Dr. Zaragoza in 4-5 weeks. Follow up with Dr. Closplint in 4-5 weeks. D iet and activity are as tolerated.
--- NOTE | 2017-10-26 16:50 | PQF ---
MENG LEONARDO RICHARD D MD [id number] SURG A- [id number] CLINICAL DOCUMENTATION CLARIFICATION FORM: POST DISCHARGE Please exercise your independent, professional judgment in responding to the clarification form. Clinical indicators are provided on the bottom of this form for your review Please check appropriate box(s): [ ] Abdominal Pain uncertain etiology [ ] Abdominal Pain due to Crohn's [ ] Other diagnosis [ ] Unable to determine In addition, please specify: Present on Admission (POA): [ ] Yes [ ] No [ ] Unable to determine For continuity of documentation, please document condition throughout progress notes and discharge summary. Thank You. CLINICAL INDICATORS - SIGNS / SYMPTOMS / LABS History of Crohn's disease by previous capsule endoscopy - Discharge Summary RISK FACTORS status post open umbilical hernia repair 10/02/17 - DS 10/25/17 TREATMENTS: started on steroid taper - DS 10/25/17 Discharged on Norco5/325 and Miralax (This form is maintained as a part of the permanent medical record) 2014 [employer] All Rights Reserved Concha Hernandez, CCS, [employer], CASC [email or web address]
== END 2017-10-25 17:41 | disposition home or self-care (01) | DRG 392 ==
LOC: ERS 15:25 → SURG B 17:51
PROVIDERS: ADMIT Specialist; ATTEND Specialist
DX: R10.31 Right lower quadrant pain (principal); K50.90 Crohn's disease, unspecified, without complications; Z90.49 Acquired absence of other specified parts of digestive tract; Z79.899 Other long term (current) drug therapy
CPT/HCPCS: 36415; 74177; 76870; 80053; 81003; 83690; 85025; 85652; 86140; 96361; 96365; 96375; 96376; A4216; J1885; J2270; J2405; J2543; J2920; J7050; Q0162

== ENCOUNTER 2017-11-22 08:45 | Emergency (ER) | payer SELFPAY ==
[2017-11-22] MEDS ORDERED: Ketorolac Tromethamine 60 MG/2 ML VIAL ONE (10:02)
[2017-11-22] MEDS ORDERED: Ondansetron ODT 4 MG TAB ONE (10:02)
[2017-11-22 10:04] LABS: Bilirubin Negative (Negative); Blood, Urine Negative (Negative); Clarity CLEAR (Clear); Glucose, Urine (Dipstick) Negative (Negative); Leukocyte Negative (Negative); Nitrite Negative (Negative); Protein, Urine (Dipstick) Negative (Neg-Trace); Specific Gravity, Urine 1.022 (1.002-1.036); Urobilinogen 0.2 mg/dL (0.2-1.0)
[2017-11-22 10:13] LABS: ALT (SGPT) 24 U/L (8-55); AST (SGOT) 17 U/L (5-34); Albumin 4.5 g/dL (3.5-5.0); Alkaline Phosphatase 66 U/L (40-150); Anion Gap 17 mmol/L (10-20); BUN (Urea Nitrogen) 13 mg/dL (8.9-20.6); Bilirubin, Total 0.6 mg/dL (0.2-1.2); Calc. Creatinine Clearance 0 mL/min (70-130); Calcium 10.2 mg/dL (7.8-10.44); Carbon Dioxide 21 mmol/L (22-29); Chloride 104 mmol/L (98-107); Estimated GFR-MDRD Greater than 90; Globulin 3.7 g/dL (2.4-3.5); Glucose 95 mg/dL (70-105); Potassium 4.1 mmol/L (3.5-5.1); Protein, Total 8.2 g/dL (6.0-8.3); Sodium 138 mmol/L (136-145)
== END 2017-11-22 10:58 | disposition home or self-care (01) ==
LOC: ERS 08:45
DX: M54.5 Low back pain (principal)
CPT/HCPCS: 36415; 80053; 81003; 96372; J1885; Q0162

== ENCOUNTER 2017-12-21 20:03 | Inpatient (IN) | payer SELFPAY ==
[2017-12-21 20:45] LABS: Bilirubin Negative (Negative); Blood, Urine Moderate (Negative); Clarity CLEAR (Clear); Glucose, Urine (Dipstick) Negative (Negative); Leukocyte Negative (Negative); Nitrite Negative (Negative); Protein, Urine (Dipstick) Negative (Neg-Trace); Specific Gravity, Urine 1.036 (1.002-1.036); Urobilinogen 0.2 mg/dL (0.2-1.0)
[2017-12-21 20:47] LABS: Bacteria/HPF None Seen HPF (None Seen); Hyaline Casts/LPF 0-3 HYALINE CAST LPF (0-3 Hyaline); Pathc Cast-AUWi Flag 0.29 (0-2.49); Squamous Epithelial 0-3 HPF (0-3); WBC/HPF 0-3 HPF (0-3)
[2017-12-21 20:59] LABS: Hemoglobin 15.3 g/dL (14.0-18.0); Mean Corpuscular HGB CONC 35.2 g/dL (32.0-36.0); Mean Corpuscular Hemoglobin 30.9 pg (27.0-31.0); Mean Corpuscular Volume 87.9 fL (78.0-98.0); Mean Platelet Volume 7.7 fL (7.4-10.4); Platelet Count 277 thou/uL (130-400); RBC Distribution Width 12.6 % (11.5-14.5); Red Blood Cell (RBC) Count 4.96 mill/uL (4.70-6.10); White Blood Cell (WBC) Count 14.5 thou/uL (4.8-10.8)
[2017-12-21 21:14] LABS: Band 10 % (5-11); Eosinophils 1 % (0-10); Lymphocytes 19 % (21-51); MDiff Complete? YES; Monocytes 5 % (0-10); Neutrophil 65 % (42-75)
[2017-12-21 21:15] LABS: ALT (SGPT) 35 U/L (8-55); AST (SGOT) 27 U/L (5-34); Albumin 4.6 g/dL (3.5-5.0); Alkaline Phosphatase 93 U/L (40-150); Anion Gap 18 mmol/L (10-20); BUN (Urea Nitrogen) 16 mg/dL (8.9-20.6); Bilirubin, Total 0.4 mg/dL (0.2-1.2); Calc. Creatinine Clearance 0 mL/min (70-130); Calcium 9.3 mg/dL (7.8-10.44); Carbon Dioxide 20 mmol/L (22-29); Chloride 102 mmol/L (98-107); Estimated GFR-MDRD Greater than 90; Globulin 4.4 g/dL (2.4-3.5); Glucose 108 mg/dL (70-105); Lipase 28 U/L (8-78); Sodium 136 mmol/L (136-145)
[2017-12-21] MEDS ORDERED: Ondansetron HCl/PF 4 MG/2 ML Vial ONE (22:47)
[2017-12-21] MEDS ORDERED: HYDROmorphone 2 MG/ML VIAL SLOW IVP SCH (23:00)
[2017-12-21] MEDS ORDERED: HYDROmorphone 0.5 MG/0.5 ML SYRINGE SLOW IVP SCH (23:00)
--- NOTE | 2017-12-21 23:09 | RAD ---
TWO VIEWS OF THE ABDOMEN: 12/21/17 COMPARISON: 06/15/17 HISTORY: Crohn's disease with abdominal pain. Two views of the abdomen shows a nonspecific, nonobstructive bowel gas pattern. No free air or air fl uid levels are seen on upright examination. Cholecystectomy clips are seen. IMPRESSION: Nonobstructive bowel gas pattern. POS: [facility]
--- NOTE | 2017-12-21 23:20 | RAD ---
SINGLE VIEW OF THE CHEST: 12/21/17 COMPARISON: 02/16/17 HISTORY: Chest pain. FINDINGS: Single view of the chest shows a normal sized cardiomediastinal silhouette. There is no evidence of c onsolidation, mass, or pleural effusion. The bones are unremarkable. IMPRESSION: No evidence of acute cardiopulmonary disease. POS: [facility]
[2017-12-21] MEDS ORDERED: HYDROmorphone 0.5 MG/0.5 ML SYRINGE ONE (23:36)
[2017-12-21] MEDS ORDERED: Water For Inject, Bacteriostat 30 ML ONE (23:56)
[2017-12-22] MEDS ORDERED: metroNIDAZOLE 500 MG in Premix Bag 1 BAG IVPB SCH (00:15)
[2017-12-22] MEDS ORDERED: HYDROmorphone 0.5 MG/0.5 ML SYRINGE ONE (00:55)
[2017-12-22] MEDS ORDERED: Ondansetron ODT 4 MG TAB SL PRN (01:24)
[2017-12-22] MEDS ORDERED: Acetaminophen 325 MG TAB PO PRN (01:24)
[2017-12-22] MEDS ORDERED: Ondansetron HCl/PF 4 MG/2 ML Vial IVP PRN (01:24)
[2017-12-22 01:31] VITALS: BMI 30.6
[2017-12-22] MEDS: Sodium Chloride 0.9% 1,000 ML IV SCH ×3 (02:00→17:38)
[2017-12-22] MEDS: metroNIDAZOLE 500 MG in Premix Bag 1 BAG IVPB SCH ×3 (05:08→17:08)
--- NOTE | 2017-12-22 06:12 | HP ---
PRIMARY CARE PHYSICIAN: The patient goes to [facility]. CODE STATUS: FULL CODE. TIME OF EVALUATION: 5:00 a.m. CHIEF COMPLAINT: Abdominal pain. HISTORY OF PRESENT ILLNESS: This is a 32-year-old male patient with past medical history of Crohn's disease that was diagnosed 8 years ago. The patient has come to the hospital after having an episode of severe and gradually worsening abdominal pain and distention, the patient reported that he usuall y has a flare of when he has cold-like symptoms and that is what happened this time. The patient rep orted that he has been doing well ____; however, symptoms have returned. Abdominal pain is severe. He is needing opioids for optimal control. No clear triggers, no alleviating factors. REVIEW OF SYSTEMS: CONSTITUTIONAL: The patient had fever, chills, generalized weakness. RESPIRATORY: No cough, sputum production or shortness of breath. CARDIOVASCULAR: No chest pain or palpitations. GASTROINTESTINAL: The patient had nausea, abdominal pain, no diarrhea. CHEMICAL PROCESS OPERATOR: No dizziness, headache or feeling lightheaded. GENITOURINARY: No burning on urination. EXTREMITIES: No leg swelling. All other systems were reviewed and negative except for the findings mentioned above. PAST MEDICAL HISTORY: The patient has diverticulitis, history of C. diff, IBD, Crohn's disease. PAST SURGICAL HISTORY: Appendectomy, cholecystectomy, right inguinal hernia. PSYCHIATRIC HISTORY: No previous psychiatric history. SOCIAL HISTORY: No alcohol, no drugs. No smoking history. ALLERGIES: No known drug allergies. REPORTED MEDICATIONS: Humira and Prilosec. PHYSICAL EXAMINATION: VITAL SIGNS: On presentation, blood pressure 117/90 with heart rate 98, respiratory rate 16, tempera ture 98.2, pain of 8/10, diffuse in the abdomen. Saturation 98 on room air. GENERAL APPEARANCE: The patient is alert, oriented, no acute distress. HEENT: Eyes; normal conjunctivae. Moist oral mucosa. Anicteric. NECK: No JVD. RESPIRATORY: Bilateral air entry. No rales, no wheezing. Symmetric expansion. CARDIOVASCULAR: Normal rate, regular rhythm. No murmurs, no gallop. No edema. ABDOMEN: Soft, mildly distended. Normal bowel sounds. Diffuse tenderness with mild palpation. MUSCULOSKELETAL: Baseline range of motion and strength. No tenderness. SKIN: Warm and intact. No pallor, no rash or redness. Peripheral pulses are present. Capillary re fill seems to be intact. NEUROLOGIC: Intact sensory. No evidence of any new focal weakness. Baseline speech. Cranial nerve s seem to be intact. PSYCHIATRIC: The patient is in a good mood. No anxiety. Oriented. Optimal judgment. Chest x-ray, the patient has no evidence of acute cardiopulmonary disease. Abdominal x-ray; the anne-marie ent has nonobstructive bowel gas pattern. LABORATORY DATA: The patient has white count of 14.5, hemoglobin 15.3, MCV 87, platelet count 277. Chemistry: Sodium 136, potassium 4.0, chloride 102, carbon dioxide 20, anion gap 18, BUN 16, creatin ine 0.9, GFR greater than 90. Glucose 108, calcium 9.3, total bilirubin 0.4, AST 27, ALT 35, alkalin e phosphatase 93. C-reactive protein 2.8, serum total protein 9.0, albumin 4.6, globulin 4.4, albumi n globulin ratio is 1.0, lipase 28. Urine was negative except for moderate blood seen in the urine. ASSESSMENT AND PLAN: The patient will be placed in the hospital with following medical problems. 1. Crohn's disease flare up, likely triggered by underlying cold symptoms. The patient needed pain medication for optimal control, patient also has some fever and chills, maybe secondary infection. F or that reason the patient will be placed on antibiotics, and GI has been consulted, we will follow r ecommendations. 2. Possible sepsis. Patient has elevated white count 14.5, patient has tachycardia, fever, possible source is a flare up of Crohn's disease. The patient will be started on antibiotics, we will follow cultures, we will adjust as needed. 3. Deep venous thrombosis prophylaxis. 4. Severe abdominal pain, being treated with opioid for optimal control, discussed with the patient high risk for complication from treatment.
[2017-12-22 08:19] VITALS: BP 106/69; TEMP 97.6
[2017-12-22] MEDS ORDERED: Famotidine 20 MG TAB PO SCH (09:00)
--- NOTE | 2017-12-22 12:30 | PDOC.PN ---
- Subjective Encounter Start Date: 12/22/17 Encounter Start Time: 12:28 Subjective: less abd pain, no diarrhea - Objective Resuscitation Status: Resuscitation Status FULL:Full Resuscitation MAR Reviewed: Yes Vital Signs & Weight: Vital Signs (12 hours) Temp Pulse Resp BP Pulse Ox 12/22/17 08:15 97.6 F 69 18 106/69 94 L 12/22/17 08:00 94 L 12/22/17 04:30 97.4 F L 70 18 100/64 96 12/22/17 01:49 94 L 12/22/17 01:29 97.9 F 89 18 124/84 94 L Weight Weight 207 lb 9 oz I&O: 12/21/17 12/22/17 12/23/17 06:59 06:59 06:59 Intake Total 500 Output Total 450 Balance 50 Result Diagrams: 12/21/17 20:42 12/21/17 20:42 Phys Exam - Physical Examination Neck: no JVD Respiratory: clear to auscultation bilateral Cardiovascular: RRR, no significant murmur Gastrointestinal: soft, positive bowel sounds mild generalized tenderness Musculoskeletal: no edema Dx/Plan (1) Abdominal pain Code(s): R10.9 - UNSPECIFIED ABDOMINAL PAIN Status: Acute Qualifiers: Abdominal location: generalized Qualified Code(s): R10.84 - Generalized abdominal pain (2) Crohns disease Code(s): K50.90 - CROHN'S DISEASE, UNSPECIFIED, WITHOUT COMPLICATIONS Status: Acute Qualifiers: Digestive disease complication type: without complication (3) Exacerbation of Crohn's disease Code(s): K50.90 - CROHN'S DISEASE, UNSPECIFIED, WITHOUT COMPLICATIONS Status: Acute Qualifiers: Digestive disease complication type: without complication Qualified Code(s) : K50.90 - Crohn's disease, unspecified, without complications - Plan cont analgesia, antibx, iv steroids -: await GI opinion * .
--- NOTE | 2017-12-22 17:59 | DIS ---
DATE OF ADMISSION: 12/22/2017 DATE OF DISCHARGE: 12/22/2017 FINAL DIAGNOSES: Abdominal pain, Crohn's disease, gastroesophageal reflux disease. DISCHARGE MEDICATIONS: Prednisone 40 mg a day for 5 days, then 30 mg a day for 5 days, then 20 mg a day for 5 days, then 10 mg a day for 5 days, then stop. DIET: As tolerated. CODE STATUS: FULL. PENDING AT THE TIME OF DISCHARGE: Nothing. HOSPITAL COURSE: The patient admitted to [facility] Emergency Department to [facility] with severe abdominal pain. He denies diarrhea. Abdomen was soft, had bowel sounds, mild tender ness. White count was elevated at 14.5, hemoglobin 15.3, platelet count 277,000. Basic metabolic pr ofile was unremarkable. Glucose 108. Liver function tests were normal. He was placed in the hospit al, IV fluids, high dose Solu-Medrol, IV ciprofloxacin, metronidazole, analgesics. He was seen in co nsultation by Dr. Carrington, Gastroenterology, who assessed that he was dramatically improved that he coul d go home on the aforementioned dose of prednisone after he had kept liquids down. The patient's abd omen is essentially benign. He is ready to go home. He states Tylenol is adequate for the discomfor t. At this point, he is being discharged for followup with [facility]. No proce dures were done.
[2017-12-22] MEDS ORDERED: Acetaminophen 325 MG TAB PO SCH (18:00)
--- NOTE | 2017-12-22 23:46 | CON ---
DATE OF CONSULTATION: 12/22/2017 GI INPATIENT CONSULTATION REQUESTING PHYSICIAN: Dr. Graves. REASON FOR CONSULTATION: Crohn's disease flare. HISTORY OF PRESENT ILLNESS: Dayne Reagan is a 32-year-old man seen in the outpatient setting by my Raimundo I colleague, Dr. Fantasma Zaragoza. He has a history of small bowel Crohn's disease, which was diagnosed on the basis of a capsule endoscopy at [facility] within the past few years. Notably, uppe r and lower endoscopy during the same time frame has been negative. Mr. Emanuel now currently on Hum baldemar getting an injection once weekly. He reports that since he started Humira, he has overall been d oing much better. He was having significant symptoms every week before. Now, he relates that he javan l have episodes of more severe abdominal pain, perhaps every couple of weeks. He has had multiple [facility] admissions for pain control in recent months. He reports that throughout the day yesterday, he s tarted having characteristic pain, which usually starts in right upper quadrant, but then radiates to the entire lower abdomen. His bowel movements have slowed down and he began to get nauseated, but h e did not have vomiting. Once the pain got severe, he presented to the emergency department, he was found to have a normal ESR, but an elevated CRP and a mild leukocytosis. Abdominal x-ray showed nons pecific bowel gas pattern. He was admitted and started on IV steroids and IV antibiotics. He had a rough night last night, but states that throughout all day today, he is doing much better, with at le ast 80% improvement in his pain symptoms. He is having no further nausea. He has not had any diarrh ea. He just had one normal appearing bowel movements a day. He has been afebrile. He is not really hungry yet and has not eaten anything today, but he is wanting to advance his diet and possibly go h ome if he can. REVIEW OF SYSTEMS: Full review of systems including constitutional, head, eyes, ears, nose, throat, GI, , cardiovascular, respiratory, musculoskeletal, and neurologic systems is negative except as no manuel in the HPI. PAST MEDICAL HISTORY: Small bowel Crohn's disease, history of C. difficile, history of diverticuliti s. PAST SURGICAL HISTORY: Appendectomy, cholecystectomy, right inguinal hernia repair. SOCIAL HISTORY: No smoking, alcohol, or drug use. ALLERGIES: No known drug allergies. MEDICATIONS: Humira injections once weekly, Prilosec daily. FAMILY HISTORY: Noncontributory. PHYSICAL EXAMINATION: VITAL SIGNS: Temperature 97.6, pulse 69, blood pressure 106/69, 94% oxygen saturation on room air. GENERAL: No acute distress. SKIN: No jaundice, no rash visible or palpable. EYES: No scleral icterus. Extraocular movements intact. ENT: Mucous membranes moist, no oral lesions. LYMPH: No submandibular, supraclavicular lymphadenopathy. THYROID: Nontender to palpation. HEART: Regular rate and rhythm. LUNGS: Clear to auscultation bilaterally. ABDOMEN: Nondistended. Bowel sounds are present throughout the abdomen. There is some tenderness t o palpation in the right upper quadrant and the lower abdomen, but no guarding, rebound tenderness. EXTREMITIES: No peripheral edema. VESSELS: Radial pulses 2+ bilaterally. NEUROLOGICAL: Cranial nerves II-XII intact bilaterally. No focal deficits. LABORATORY STUDIES: WBC 14.5, hemoglobin 15.3, platelets 277. ESR 8, CRP elevated to 2.86, lipase n ormal at 28. LFTs all normal with total bilirubin 0.4, alkaline phosphatase 93, AST 27, ALT 35, albu min 4.6, BUN 16, creatinine 0.96. Urinalysis negative. IMAGING STUDIES: Abdominal x-ray showed nonobstructive bowel gas pattern. Chest x-ray showed no tremaine dence of acute process. ASSESSMENT AND PLAN: 1. Crohn's disease of the small bowel, current flare of disease. 2. Generalized abdominal pain, improved today. Mr. Reagan's symptoms are consistent with characterist ic disease flare with it appears mild obstructive symptoms, now resolving today. He is feeling a lot better and is wanting to go home. I think this is reasonable if he can slowly advance his diet. Up on discharge, I would recommend an oral prednisone taper 40 mg daily for 5 days, then 30 mg daily for 5 days, then 20 mg for 5 days, then 10 mg for 5 days. We will have him follow up in the GI clinic w yanique Zaragoza or his Physician Customer Service Driver in the next couple of weeks. He will continue on his Humira as already scheduled. Thank you for the consultation. Please call any time with questions or concerns.
== END 2017-12-22 18:06 | disposition home or self-care (01) | DRG 387 ==
LOC: ERS 20:03 → T4-A 23:29
PROVIDERS: ADMIT Hospitalist; ATTEND Hospitalist
DX: K50.90 Crohn's disease, unspecified, without complications (principal); K21.9 Gastro-esophageal reflux disease without esophagitis
CPT/HCPCS: 71045; 74019; 80053; 81003; 81015; 83690; 85025; 85652; 86140; 96361; 96365; 96368; 96375; 96376; J0744; J1170; J2270; J2405; J2920

== ENCOUNTER 2018-01-16 09:28 | Emergency (ER) | payer SELFPAY ==
[2018-01-16 10:17] LABS: #Basophils 0.1 thou/uL (0.0-0.2); #Eosinphils 0.2 thou/uL (0.0-0.7); #Neutrophils 7.6 thou/uL (1.40-6.50); %Basophils 0.6 % (0.0-1.0); %Eosinophils 1.5 % (0.0-10.0); %Lymphocytes 18.6 % (21.0-51.0); %Monocytes 8.8 % (0.0-10.0); %Neutrophils 70.4 % (42.0-75.0); Hemoglobin 14.3 g/dL (14.0-18.0); Mean Corpuscular HGB CONC 33.7 g/dL (32.0-36.0); Mean Corpuscular Hemoglobin 29.9 pg (27.0-31.0); Mean Platelet Volume 7.3 fL (7.4-10.4); Platelet Count 314 thou/uL (130-400); RBC Distribution Width 12.7 % (11.5-14.5); Red Blood Cell (RBC) Count 4.76 mill/uL (4.70-6.10); White Blood Cell (WBC) Count 10.8 thou/uL (4.8-10.8)
[2018-01-16 10:39] LABS: ALT (SGPT) 25 U/L (8-55); AST (SGOT) 14 U/L (5-34); Albumin 4.4 g/dL (3.5-5.0); Alkaline Phosphatase 85 U/L (40-150); Anion Gap 13 mmol/L (10-20); BUN (Urea Nitrogen) 9 mg/dL (8.9-20.6); Bilirubin, Total 0.9 mg/dL (0.2-1.2); Calc. Creatinine Clearance 0 mL/min (70-130); Calcium 9.6 mg/dL (7.8-10.44); Carbon Dioxide 24 mmol/L (22-29); Chloride 106 mmol/L (98-107); Estimated GFR-MDRD Greater than 90; Globulin 3.5 g/dL (2.4-3.5); Glucose 99 mg/dL (70-105); Lipase 7 U/L (8-78); Protein, Total 7.9 g/dL (6.0-8.3); Sodium 139 mmol/L (136-145)
--- NOTE | 2018-01-16 10:50 | RAD ---
SINGLE VIEW OF THE CHEST: Comparison: 05-08-14 History: Crohn's disease. On recent steroid taper. Evaluate for free air. FINDINGS: Single view of the chest shows a normal sized cardiomediastinal silhouette. There is no evidence of c onsolidation, mass, or pleural effusion. The bones are unremarkable. No free air is seen beneath the hemidiaphragms. IMPRESSION: No evidence of acute cardiopulmonary disease. POS: [facility]
[2018-01-16] MEDS ORDERED: Morphine 4 MG/ML VIAL ONE (10:53)
[2018-01-16] MEDS ORDERED: Ondansetron HCl/PF 4 MG/2 ML Vial ONE (10:53)
[2018-01-16 12:02] LABS: Bilirubin Negative (Negative); Blood, Urine Negative (Negative); Clarity CLEAR (Clear); Glucose, Urine (Dipstick) Negative (Negative); Leukocyte Negative (Negative); Nitrite Negative (Negative); Protein, Urine (Dipstick) Negative (Neg-Trace); Specific Gravity, Urine 1.013 (1.002-1.036); Urobilinogen 0.2 mg/dL (0.2-1.0)
== END 2018-01-16 12:58 | disposition home or self-care (01) ==
LOC: ERS 09:28
DX: K50.90 Crohn's disease, unspecified, without complications (principal); Z79.899 Other long term (current) drug therapy
CPT/HCPCS: 36415; 71045; 80053; 81003; 83690; 85025; 96361; 96374; 96375; J2270; J2405

== ENCOUNTER 2018-02-18 19:43 | Emergency (ER) | payer SELFPAY ==
[2018-02-18 20:14] LABS: #Basophils 0.1 thou/uL (0.0-0.2); #Eosinphils 0.1 thou/uL (0.0-0.7); #Monocytes 0.6 thou/uL (0.11-0.59); #Neutrophils 11.7 thou/uL (1.40-6.50); %Basophils 0.7 % (0.0-1.0); %Eosinophils 0.4 % (0.0-10.0); %Lymphocytes 13.7 % (21.0-51.0); %Monocytes 4.4 % (0.0-10.0); %Neutrophils 80.8 % (42.0-75.0); Hemoglobin 14.9 g/dL (14.0-18.0); Mean Corpuscular HGB CONC 32.6 g/dL (32.0-36.0); Mean Corpuscular Hemoglobin 29.6 pg (27.0-31.0); Mean Corpuscular Volume 90.6 fL (78.0-98.0); Platelet Count 340 thou/uL (130-400); RBC Distribution Width 13.1 % (11.5-14.5); Red Blood Cell (RBC) Count 5.05 mill/uL (4.70-6.10); White Blood Cell (WBC) Count 14.5 thou/uL (4.8-10.8)
[2018-02-18] MEDS ORDERED: Morphine 2 MG/ML SYRINGE ONE (20:16)
[2018-02-18] MEDS ORDERED: Ondansetron PF 4 MG/2 ML Vial ONE (20:16)
[2018-02-18 21:18] LABS: ALT (SGPT) 32 U/L (8-55); AST (SGOT) 24 U/L (5-34); Albumin 4.3 g/dL (3.5-5.0); Alkaline Phosphatase 63 U/L (40-150); Anion Gap 16 mmol/L (10-20); BUN (Urea Nitrogen) 15 mg/dL (8.9-20.6); Bilirubin, Total 0.6 mg/dL (0.2-1.2); Calc. Creatinine Clearance 0 mL/min (70-130); Calcium 9.6 mg/dL (7.8-10.44); Carbon Dioxide 21 mmol/L (22-29); Chloride 103 mmol/L (98-107); Estimated GFR-MDRD Greater than 90; Globulin 3.7 g/dL (2.4-3.5); Glucose 135 mg/dL (70-105); Lipase 14 U/L (8-78); Potassium 4.8 mmol/L (3.5-5.1); Sodium 135 mmol/L (136-145)
[2018-02-18] MEDS ORDERED: methylPREDNISolone Sod Succ/PF 125 MG/2 ML VIAL ONE (21:36)
[2018-02-18] MEDS ORDERED: Morphine 4 MG/ML VIAL ONE (21:36)
[2018-02-18] MEDS ORDERED: Water For Injection,Sterile 20 ML ONE (21:37)
== END 2018-02-18 21:50 | disposition home or self-care (01) ==
LOC: ERS 19:43
DX: K50.90 Crohn's disease, unspecified, without complications (principal); Z79.899 Other long term (current) drug therapy
CPT/HCPCS: 80053; 83690; 85025; 96361; 96374; 96375; 96376; J2270; J2405; J2930

== ENCOUNTER 2018-03-15 16:25 | Emergency (ER) | payer SELFPAY ==
[2018-03-15 17:18] LABS: #Basophils 0.1 thou/uL (0.0-0.2); #Eosinphils 0.1 thou/uL (0.0-0.7); #Neutrophils 7.6 thou/uL (1.40-6.50); %Basophils 0.7 % (0.0-1.0); %Eosinophils 1.2 % (0.0-10.0); %Lymphocytes 25.3 % (21.0-51.0); %Monocytes 8.6 % (0.0-10.0); %Neutrophils 64.2 % (42.0-75.0); Hemoglobin 15.2 g/dL (14.0-18.0); Mean Corpuscular HGB CONC 34.4 g/dL (32.0-36.0); Mean Corpuscular Hemoglobin 29.9 pg (27.0-31.0); Mean Corpuscular Volume 86.9 fL (78.0-98.0); Mean Platelet Volume 7.8 fL (7.4-10.4); Platelet Count 323 thou/uL (130-400); RBC Distribution Width 12.6 % (11.5-14.5); White Blood Cell (WBC) Count 11.9 thou/uL (4.8-10.8)
[2018-03-15 17:36] LABS: ALT (SGPT) 48 U/L (8-55); AST (SGOT) 29 U/L (5-34); Albumin 4.4 g/dL (3.5-5.0); Alkaline Phosphatase 86 U/L (40-150); Anion Gap 14 mmol/L (10-20); BUN (Urea Nitrogen) 13 mg/dL (8.9-20.6); Bilirubin, Total 0.2 mg/dL (0.2-1.2); Calc. Creatinine Clearance 0 mL/min (70-130); Calcium 10.2 mg/dL (7.8-10.44); Carbon Dioxide 23 mmol/L (22-29); Chloride 105 mmol/L (98-107); Estimated GFR-MDRD Greater than 90; Globulin 3.8 g/dL (2.4-3.5); Glucose 87 mg/dL (70-105); Protein, Total 8.2 g/dL (6.0-8.3); Sodium 138 mmol/L (136-145)
== END 2018-03-15 18:49 | disposition left against medical advice (07) ==
LOC: ERS 16:25
DX: Z53.21 Procedure and treatment not carried out due to patient leaving prior to being seen by health care provider (principal)
CPT/HCPCS: 36415; 80053; 85025

== ENCOUNTER 2018-03-15 18:28 | Emergency (ER) | payer SELFPAY ==
[2018-03-15] MEDS ORDERED: Ketorolac Tromethamine 30 MG/ML VIAL ONE (19:01)
[2018-03-15] MEDS ORDERED: Ondansetron PF 4 MG/2 ML Vial ONE (19:01)
--- NOTE | 2018-03-15 19:48 | RAD ---
KUB: 03/15/18 HISTORY: Right lower quadrant pain. History of Crohn's. Postop cholecystectomy changes are seen. The bowel gas pattern is nonobstructed. Chain type sutures a t the level of the cecum would be suggestive of an appendectomy. No radiopaque calculi or bony findin gs. IMPRESSION: No acute findings. POS: [facility]
== END 2018-03-15 20:56 | disposition home or self-care (01) ==
LOC: SCSER 18:28
DX: K50.90 Crohn's disease, unspecified, without complications (principal); Z79.899 Other long term (current) drug therapy
CPT/HCPCS: 74018; 96361; 96374; 96375; J1885; J2405

== ENCOUNTER 2018-04-17 16:51 | Emergency (ER) | payer SELFPAY | END 2018-04-17 17:49 | disposition left against medical advice (07) | LOC: ERS 16:51 | DX: Z53.21 Procedure and treatment not carried out due to patient leaving prior to being seen by health care provider (principal) ==

== ENCOUNTER 2018-04-17 17:25 | Emergency (ER) | payer SELFPAY ==
[2018-04-17] MEDS ORDERED: Morphine 4 MG/ML VIAL ONE ×2 (18:09→18:44)
[2018-04-17] MEDS ORDERED: Ondansetron PF 4 MG/2 ML Vial ONE (18:09)
[2018-04-17 18:15] LABS: #Basophils 0.2 thou/uL (0.0-0.2); #Eosinphils 0.2 thou/uL (0.0-0.7); #Lymphocytes 3.9 thou/uL (1.20-3.40); #Monocytes 0.7 thou/uL (0.11-0.59); #Neutrophils 10.6 thou/uL (1.40-6.50); %Eosinophils 1.6 % (0.0-10.0); %Lymphocytes 24.9 % (21.0-51.0); %Monocytes 4.4 % (0.0-10.0); %Neutrophils 68.2 % (42.0-75.0); Hemoglobin 15.2 g/dL (14.0-18.0); Mean Corpuscular HGB CONC 32.1 g/dL (32.0-36.0); Mean Corpuscular Hemoglobin 28.1 pg (27.0-31.0); Mean Corpuscular Volume 87.5 fL (78.0-98.0); Mean Platelet Volume 7.4 fL (7.4-10.4); Platelet Count 314 thou/uL (130-400); RBC Distribution Width 11.8 % (11.5-14.5); Red Blood Cell (RBC) Count 5.39 mill/uL (4.70-6.10); White Blood Cell (WBC) Count 15.5 thou/uL (4.8-10.8)
[2018-04-17 18:32] LABS: ALT (SGPT) 34 U/L (8-55); AST (SGOT) 23 U/L (5-34); Albumin 4.6 g/dL (3.5-5.0); Alkaline Phosphatase 77 U/L (40-150); Anion Gap 16 mmol/L (10-20); BUN (Urea Nitrogen) 14 mg/dL (8.9-20.6); Bilirubin, Total 0.4 mg/dL (0.2-1.2); Calc. Creatinine Clearance 0 mL/min (70-130); Calcium 9.7 mg/dL (7.8-10.44); Carbon Dioxide 23 mmol/L (22-29); Chloride 105 mmol/L (98-107); Estimated GFR-MDRD Greater than 90; Globulin 3.5 g/dL (2.4-3.5); Glucose 86 mg/dL (70-105); Lipase 16 U/L (8-78); Potassium 3.8 mmol/L (3.5-5.1); Protein, Total 8.1 g/dL (6.0-8.3); Sodium 140 mmol/L (136-145)
--- NOTE | 2018-04-17 18:48 | RAD ---
ACUTE ABDOMINAL SERIES: 04/17/2018 PROVIDED CLINICAL HISTORY: Pain. COMPARISON: 02/16/2017 FINDINGS: The cardiac and mediastinal silhouette are within normal limits. The lungs appear clear. No pleural fluid or pneumothorax apparent. The abdominal bowel gas pattern is nonspecific. Cholecystectomy clips are seen in the right upper qu adrant. There is no evidence for pneumoperitoneum. No radiographically apparent urinary tract calcu li. IMPRESSION: 1. No evidence for an acute cardiopulmonary process. 2. Nonspecific bowel gas pattern. POS: [facility]
== END 2018-04-17 19:20 | disposition home or self-care (01) ==
LOC: SCSER 17:25
DX: R10.31 Right lower quadrant pain (principal); F17.210 Nicotine dependence, cigarettes, uncomplicated; K58.9 Irritable bowel syndrome, unspecified; Z79.899 Other long term (current) drug therapy
CPT/HCPCS: 74022; 82274; 83605; 83690; 96361; 96374; 96375; 96376; J2270; J2405

== ENCOUNTER 2018-05-04 09:19 | Emergency (ER) | payer SELFPAY ==
[2018-05-04] MEDS ORDERED: Morphine 4 MG/ML VIAL ONE ×3 (10:01→12:34)
[2018-05-04] MEDS ORDERED: Ondansetron PF 4 MG/2 ML Vial ONE (10:01)
[2018-05-04 10:20] LABS: #Basophils 0.1 thou/uL (0.0-0.2); #Eosinphils 0.1 thou/uL (0.0-0.7); #Lymphocytes 4.4 thou/uL (1.20-3.40); #Monocytes 1.4 thou/uL (0.11-0.59); #Neutrophils 10.9 thou/uL (1.40-6.50); %Basophils 0.7 % (0.0-1.0); %Eosinophils 0.5 % (0.0-10.0); %Neutrophils 64.7 % (42.0-75.0); Hemoglobin 14.4 g/dL (14.0-18.0); Mean Corpuscular HGB CONC 32.3 g/dL (32.0-36.0); Mean Corpuscular Hemoglobin 28.5 pg (27.0-31.0); Mean Corpuscular Volume 88.2 fL (78.0-98.0); Mean Platelet Volume 7.2 fL (7.4-10.4); Platelet Count 367 thou/uL (130-400); RBC Distribution Width 12.3 % (11.5-14.5); Red Blood Cell (RBC) Count 5.07 mill/uL (4.70-6.10); White Blood Cell (WBC) Count 16.9 thou/uL (4.8-10.8)
[2018-05-04 10:44] LABS: ALT (SGPT) 28 U/L (8-55); AST (SGOT) 16 U/L (5-34); Albumin 4.2 g/dL (3.5-5.0); Alkaline Phosphatase 68 U/L (40-150); Anion Gap 14 mmol/L (10-20); BUN (Urea Nitrogen) 15 mg/dL (8.9-20.6); Bilirubin, Total 0.6 mg/dL (0.2-1.2); Calc. Creatinine Clearance 0 mL/min (70-130); Calcium 9.3 mg/dL (7.8-10.44); Carbon Dioxide 20 mmol/L (22-29); Chloride 107 mmol/L (98-107); Estimated GFR-MDRD Greater than 90; Glucose 86 mg/dL (70-105); Lipase 6 U/L (8-78); Potassium 3.9 mmol/L (3.5-5.1); Protein, Total 7.2 g/dL (6.0-8.3); Sodium 137 mmol/L (136-145)
[2018-05-04 13:01] LABS: Bilirubin Negative (Negative); Blood, Urine Negative (Negative); Clarity CLEAR (Clear); Glucose, Urine (Dipstick) Negative (Negative); Leukocyte Negative (Negative); Nitrite Negative (Negative); Protein, Urine (Dipstick) Negative (Neg-Trace); Urobilinogen 0.2 mg/dL (0.2-1.0); pH, Urine 5.5 (5.0-9.0)
== END 2018-05-04 13:37 | disposition home or self-care (01) ==
LOC: ERS 09:19
DX: K50.90 Crohn's disease, unspecified, without complications (principal); F17.210 Nicotine dependence, cigarettes, uncomplicated; Z79.899 Other long term (current) drug therapy; Z79.4 Long term (current) use of insulin
CPT/HCPCS: 80053; 81003; 83605; 83690; 85025; 96361; 96374; 96375; 96376; J2270; J2405

== ENCOUNTER 2018-05-06 16:20 | Inpatient (IN) | payer SELFPAY ==
[2018-05-06 17:19] LABS: #Basophils 0.1 thou/uL (0.0-0.2); #Eosinphils 0.2 thou/uL (0.0-0.7); #Lymphocytes 1.7 thou/uL (1.20-3.40); #Monocytes 0.5 thou/uL (0.11-0.59); #Neutrophils 9.2 thou/uL (1.40-6.50); %Basophils 0.5 % (0.0-1.0); %Eosinophils 1.5 % (0.0-10.0); %Lymphocytes 14.5 % (21.0-51.0); %Monocytes 4.4 % (0.0-10.0); %Neutrophils 79.2 % (42.0-75.0); Mean Corpuscular HGB CONC 32.8 g/dL (32.0-36.0); Mean Corpuscular Volume 91.5 fL (78.0-98.0); Mean Platelet Volume 7.5 fL (7.4-10.4); Platelet Count 396 thou/uL (130-400); RBC Distribution Width 12.5 % (11.5-14.5); Red Blood Cell (RBC) Count 4.99 mill/uL (4.70-6.10); White Blood Cell (WBC) Count 11.6 thou/uL (4.8-10.8)
[2018-05-06] MEDS ORDERED: Morphine 4 MG/ML VIAL ONE ×2 (17:24→19:12)
[2018-05-06] MEDS ORDERED: Ondansetron PF 4 MG/2 ML Vial ONE (17:24)
[2018-05-06 17:41] LABS: ALT (SGPT) 130 U/L (8-55); AST (SGOT) 22 U/L (5-34); Albumin 4.4 g/dL (3.5-5.0); Alkaline Phosphatase 91 U/L (40-150); Anion Gap 15 mmol/L (10-20); BUN (Urea Nitrogen) 13 mg/dL (8.9-20.6); Bilirubin, Total 0.2 mg/dL (0.2-1.2); Calc. Creatinine Clearance 0 mL/min (70-130); Carbon Dioxide 20 mmol/L (22-29); Chloride 105 mmol/L (98-107); Estimated GFR-MDRD Greater than 90; Globulin 3.8 g/dL (2.4-3.5); Glucose 163 mg/dL (70-105); Lipase 11 U/L (8-78); Potassium 4.5 mmol/L (3.5-5.1); Protein, Total 8.2 g/dL (6.0-8.3); Sodium 135 mmol/L (136-145)
[2018-05-06 17:56] LABS: Bilirubin Negative (Negative); Blood, Urine Negative (Negative); Clarity CLEAR (Clear); Glucose, Urine (Dipstick) Negative (Negative); Leukocyte Negative (Negative); Nitrite Negative (Negative); Protein, Urine (Dipstick) Negative (Neg-Trace); Specific Gravity, Urine 1.019 (1.002-1.036); pH, Urine 7.5 (5.0-9.0)
--- NOTE | 2018-05-06 19:15 | RAD ---
ABDOMEN ONE VIEW: 05/06/18 HISTORY: Abdominal pain. COMPARISON: 04/17/18. FINDINGS: Gas and stool throughout the colon and rectum. Small bowel gas pattern is nonspecific. Metallic clips over the gallbladder fossa. No radiopaque foreign bodies otherwise demonstrated. IMPRESSION: No significant abnormalities are demonstrated. POS: [facility]
[2018-05-06] MEDS ORDERED: Ondansetron PF 4 MG/2 ML Vial IVP PRN (22:01)
[2018-05-06] MEDS ORDERED: Ondansetron ODT 4 MG TAB PO PRN (22:01)
[2018-05-06] MEDS ORDERED: Acetaminophen 325 MG TAB PO PRN (22:01)
[2018-05-06] MEDS ORDERED: Morphine 4 MG/ML VIAL SLOW IVP PRN (22:03)
[2018-05-06 22:38] VITALS: BMI 31.2
[2018-05-06] MEDS: Sodium Chloride 0.9% 1,000 ML IV SCH (22:40)
[2018-05-06] MEDS: metroNIDAZOLE 500 MG in Premix Bag 1 BAG IVPB SCH (22:47)
[2018-05-07] MEDS: HYDROcodone/Acetaminophen 5/325 mg Tablet PO PRN ×5 (00:37→20:40)
[2018-05-07] MEDS: Morphine 4 MG/ML VIAL SLOW IVP PRN ×5 (03:56→22:43)
[2018-05-07] MEDS: metroNIDAZOLE 500 MG in Premix Bag 1 BAG IVPB SCH ×3 (05:31→21:35)
--- NOTE | 2018-05-07 05:47 | HP ---
CHIEF COMPLAINT: Abdominal discomfort. PRIMARY CARE PHYSICIAN: [facility]. PRIMARY CAN LINE EXAMINER: Dr. Galo. HISTORY OF PRESENT ILLNESS: The patient is a 32-year-old male with Crohn disease diagnosed approximately 8 to 9 years ago, presented to the hospital with abdominal discomfort. The abdominal pain has been ongoing for last 3 days or so. He also had several episodes of vomiting. He felt generally weak and fatigued. He tried taking Zofran without much relief. He was evaluated by Gastroenterology last week and was started on prednisone. He was also seen in the emergency room 2-3 days ago. He had two episodes of loose stools. The abdominal pain was mainly in the lower quadrant, sharp, stabbing in nature with intermittent worsening. He called Dr. Carrington this morning, who recommended the patient to go to the emergency room. Initial vital signs in the emergency room showed temperature 97.8, respirations of 18, pulse rate of 100, blood pressure 138/87, with O2 saturation 97% on room air. He received morphine, Zofran, and Solu-Medrol in the emergency room. KUB in the emergency room was negative for acute findings. PAST MEDICAL HISTORY: 1. Crohn disease. 2. Irritable bowel syndrome. 3. Diverticulosis. 4. GERD. 5. History of Clostridium difficile colitis. PAST SURGICAL HISTORY: 1. Appendectomy. 2. Cholecystectomy. 3. Right inguinal hernia repair. ALLERGIES: NO KNOWN DRUG ALLERGIES. SOCIAL HISTORY: The patient currently lives at home with his family. No current use of smoking, alcohol, or drug use reported. FAMILY HISTORY: Maternal grandmother with colon cancer. Ulcerative colitis in both the parents. REVIEW OF SYSTEMS: All other review of systems was reviewed and was found negative. CURRENT HOME MEDICATIONS: Humira 40 mg every 7 days, bentyl 10 mg daily, Pepcid 20 mg b.i.d., Medrol Dosepak started recently. PHYSICAL EXAMINATION: VITAL SIGNS: As discussed above. GENERAL: A 32-year-old male, in [id number] distress due to abdominal discomfort. HEENT: Head, atraumatic and normocephalic. Sclerae anicteric. Moist mucous membranes. No oral lesion. NECK: Supple. No JVD appreciated. No carotid bruit. LUNGS: Clear to auscultation bilaterally. HEART: S1 and S2 present. Regular rate and rhythm. No murmurs, rubs, or gallops appreciated. ABDOMEN: Soft. There is generalized tenderness, mainly in the lower quadrants. No rebound or guarding. No costovertebral angle tenderness. EXTREMITIES: No edema or calf tenderness. NEUROLOGIC: Grossly nonfocal. Moves all 4 extremities. PSYCHIATRIC: Alert, awake, and oriented x3. SKIN: Warm and dry. LYMPH NODES: No palpable lymph nodes in the neck. LABORATORY FINDINGS: WBC 11.6, with hemoglobin 15, hematocrit 45.6, platelets 396. Chemistry showed sodium 135, potassium 4.5, chloride 105, bicarb 20, BUN 13, creatinine 0.83, glucose of 163. AST 22, ALT 130, alkaline phosphatase 91. Urinalysis was negative. KUB by my review as discussed above. IMPRESSION: 1. Crohn's flare. 2. Dehydration due to poor oral intake/nausea and vomiting. 3. Hyponatremia secondary to dehydration. 4. Metabolic acidosis. 5. Gastroesophageal reflux disease. 6. Irritable bowel syndrome. 7. Diverticulosis. 8. Obesity with a BMI of 31.2. PLAN: The patient will be monitored on the medical floor. We will continue IV fluids with IV Solu-Medrol 40 mg q.6h per GI recommendation. Gastroenterology team will be consulted. We will add empiric antibiotics for now. We will send stool studies. Recheck labs in a.m. Clear liquid diet. DVT prophylaxis with SCDs. The patient was advised to ambulate. Vital signs q.4h. Plan was discussed with the patient in detail. He stated understanding. Job ID: [id number]
[2018-05-07 06:23] LABS: #Eosinphils 0.1 thou/uL (0.0-0.7); #Lymphocytes 1.8 thou/uL (1.20-3.40); #Monocytes 0.3 thou/uL (0.11-0.59); %Basophils 0.1 % (0.0-1.0); %Eosinophils 0.6 % (0.0-10.0); %Lymphocytes 11.6 % (21.0-51.0); %Monocytes 1.8 % (0.0-10.0); %Neutrophils 85.9 % (42.0-75.0); Hemoglobin 13.7 g/dL (14.0-18.0); Mean Corpuscular HGB CONC 32.5 g/dL (32.0-36.0); Mean Corpuscular Hemoglobin 29.9 pg (27.0-31.0); Mean Platelet Volume 7.5 fL (7.4-10.4); Platelet Count 370 thou/uL (130-400); RBC Distribution Width 12.4 % (11.5-14.5); Red Blood Cell (RBC) Count 4.58 mill/uL (4.70-6.10); White Blood Cell (WBC) Count 15.1 thou/uL (4.8-10.8)
[2018-05-07 06:42] LABS: CRP (Inflammatory) 5.14 mg/dL (= or < 0.5); Phosphorus 4.7 mg/dL (2.3-4.7)
[2018-05-07 06:48] LABS: ALT (SGPT) 98 U/L (8-55); AST (SGOT) 12 U/L (5-34); Alkaline Phosphatase 81 U/L (40-150); Anion Gap 14 mmol/L (10-20); BUN (Urea Nitrogen) 14 mg/dL (8.9-20.6); Bilirubin, Total 0.3 mg/dL (0.2-1.2); Calc. Creatinine Clearance 188 mL/min (70-130); Calcium 9.2 mg/dL (7.8-10.44); Carbon Dioxide 22 mmol/L (22-29); Chloride 103 mmol/L (98-107); Estimated GFR-MDRD Greater than 90; Globulin 3.1 g/dL (2.4-3.5); Glucose 113 mg/dL (70-105); Magnesium 1.9 mg/dL (1.6-2.6); Protein, Total 7.1 g/dL (6.0-8.3); Sodium 135 mmol/L (136-145)
[2018-05-07] MEDS: Famotidine 20 MG TAB PO SCH ×2 (08:41→20:37)
--- NOTE | 2018-05-07 09:54 | CON ---
DATE OF CONSULTATION: 05/07/2018 This is a GI inpatient consultation note. REASON FOR CONSULTATION: Crohn disease flare. HISTORY OF PRESENT ILLNESS: Dayne Reagan is a 32-year-old man, previously seen in the outpatient setting by my GI colleague, Dr. Fantasma Zaragoza, transitioning of care to Dr. Tanner Galo. He has a history of small bowel Crohn disease, which was diagnosed on the basis of capsule endoscopy at [facility] within the past few years. Notably, upper and lower endoscopy during the same timeframe has been negative. He is on Humira once weekly. He states that initially after going on Humira, his flares of abdominal pain symptoms were less frequent. However, he feels that he has quite significant severe flares of abdominal pain despite the Humira. He has had multiple presentations to the ER, a lot of CT scans within the past few years. He has had multiple brief admissions for IV steroids, and usually has a good symptom control within a couple of days. He says his current flare symptoms started about 3 days ago. He started having significant lower abdominal pain more in the right lower quadrant, which then became more generalized and into the periumbilical area. This was associated with nausea and multiple episodes of vomiting. He did some vomiting on and then he did some vomiting again yesterday. This was nonbloody emesis. He says he had a normal bowel movement yesterday and in generally, does not have diarrhea. He tries to avoid high residue foods. Upon admission to the Emergency Department yesterday, an abdominal x-ray showed a nonobstructive bowel gas pattern, but he was mildly hyponatremic with a mild leukocytosis and elevated CRP. He was admitted to the hospital and started on IV Solu-Medrol. This morning, he says he feels slightly better. Still having significant pain in the abdomen once the morphine wears off. He has had no vomiting since arrival. No bowel movement since arrival last night. PAST MEDICAL HISTORY: Small bowel Crohn disease, history of C. difficile, history of diverticulitis, appendectomy, cholecystectomy, and right inguinal hernia repair. ALLERGIES: NO KNOWN DRUG ALLERGIES. MEDICATIONS: 1. Humira 40 mg every 7 days. 2. Bentyl 10 mg daily. 3. Pepcid 20 mg b.i.d. 4. Prednisone taper started recently. SOCIAL HISTORY: No smoking, alcohol, or drug use. FAMILY HISTORY: Maternal grandmother had colon cancer. Ulcerative colitis in both his parents. REVIEW OF SYSTEMS: Full review of systems including constitutional, head, eyes, ears, nose, throat, GI, , cardiovascular, respiratory, musculoskeletal, and neurologic systems are negative except as noted in the HPI. PHYSICAL EXAMINATION: VITAL SIGNS: Temperature 97.4, pulse 66, blood pressure 116/69, and 97% oxygen saturation on room air. GENERAL: A 32-year-old man, lying in bed comfortably, in no distress. SKIN: No jaundice. No rashes were palpable. EYES: No scleral icterus. Extraocular movements intact. ENT: Mucous membranes moist. No oral lesions. LYMPH: No submandibular or supraclavicular lymphadenopathy. THYROID: Nontender to palpation. HEART: Regular rate and rhythm. LUNGS: Clear to auscultation bilaterally. ABDOMEN: Bowel sounds are present though hypoactive. Mild distention, tympanitic to percussion. Soft. Tender to palpation in the lower abdomen. No guarding or rebound tenderness. EXTREMITIES: No peripheral edema. VESSELS: Radial pulses 2+ bilaterally NEUROLOGIC: Cranial nerves 2 through 12 intact bilaterally. No focal deficits. LABORATORY STUDIES: WBC 15.1, hemoglobin 13.7, and platelets 370. Sodium 135, potassium 4.0, BUN 14, creatinine 0.75, total bilirubin 0.3, alkaline phosphatase 81, AST 12, ALT 98, phosphorus 4.7, and albumin 4.0. CRP 5.14. Lipase only 11. Urinalysis negative. IMAGING STUDIES: Abdominal x-ray shows nonspecific bowel gas pattern and cholecystectomy clips. ASSESSMENT AND PLAN: 1. Crohn disease of the small bowel, current flare. 2. Nausea and vomiting. 3. Mild dehydration secondary to nausea and vomiting. I had a long discussion with the patient. We are going to need to treat this like a characteristic small bowel Crohn's flare. He has been started on IV Solu-Medrol 40 mg q.6 hours and hopefully as in prior episodes, he will have good symptomatic relief within the next day or 2. Continuing analgesics as needed and antiemetics as needed. Currently, he is tolerating a liquid diet, so I think he can continue this. If he has recurrent vomiting over the course of today, we may need to stop this and even consider placing a nasogastric tube, but we will see. In the longer term, he is transitioning his care over to Dr. Galo as Dr. Zaragoza is retiring soon. He has been on Humira 40 mg once weekly injections. I agree with Dr. Galo's plan to get a capsule endoscopy done on an outpatient basis for more objective disease activity assessment prior to considering changing agents. Thank you for the consultation. Please call anytime with questions or concerns. Job ID: [id number]
[2018-05-07] MEDS: Sodium Chloride 0.9% 1,000 ML IV SCH ×4 (10:14→22:25)
[2018-05-07] MEDS: Docusate 100 MG CAP PO PRN (12:28)
[2018-05-08] MEDS: HYDROcodone/Acetaminophen 5/325 mg Tablet PO PRN ×4 (01:10→18:24)
[2018-05-08] MEDS: Morphine 4 MG/ML VIAL SLOW IVP PRN ×5 (01:44→23:38)
[2018-05-08] MEDS ORDERED: Ketorolac Tromethamine 30 MG/ML VIAL IVP PRN (04:39)
[2018-05-08] MEDS ORDERED: Ketorolac Tromethamine 30 MG/ML VIAL IVP SCH (04:45)
[2018-05-08] MEDS: metroNIDAZOLE 500 MG in Premix Bag 1 BAG IVPB SCH ×3 (05:07→22:17)
[2018-05-08] MEDS: Sodium Chloride 0.9% 1,000 ML IV SCH ×5 (05:12→21:23)
[2018-05-08 06:12] LABS: #Eosinphils 0.1 thou/uL (0.0-0.7); #Lymphocytes 2.2 thou/uL (1.20-3.40); #Monocytes 1.1 thou/uL (0.11-0.59); #Neutrophils 14.8 thou/uL (1.40-6.50); %Basophils 0.1 % (0.0-1.0); %Eosinophils 0.3 % (0.0-10.0); %Monocytes 5.9 % (0.0-10.0); %Neutrophils 81.7 % (42.0-75.0); Hemoglobin 13.7 g/dL (14.0-18.0); Mean Corpuscular HGB CONC 32.5 g/dL (32.0-36.0); Mean Corpuscular Hemoglobin 29.8 pg (27.0-31.0); Mean Corpuscular Volume 91.7 fL (78.0-98.0); Mean Platelet Volume 7.6 fL (7.4-10.4); Platelet Count 374 thou/uL (130-400); RBC Distribution Width 12.4 % (11.5-14.5); White Blood Cell (WBC) Count 18.1 thou/uL (4.8-10.8)
[2018-05-08 06:46] LABS: ALT (SGPT) 70 U/L (8-55); AST (SGOT) 9 U/L (5-34); Albumin 3.7 g/dL (3.5-5.0); Alkaline Phosphatase 67 U/L (40-150); Anion Gap 16 mmol/L (10-20); BUN (Urea Nitrogen) 14 mg/dL (8.9-20.6); Bilirubin, Total Less than 0.2 mg/dL (0.2-1.2); Calc. Creatinine Clearance 186 mL/min (70-130); Calcium 8.9 mg/dL (7.8-10.44); Carbon Dioxide 22 mmol/L (22-29); Chloride 104 mmol/L (98-107); Estimated GFR-MDRD Greater than 90; Globulin 2.9 g/dL (2.4-3.5); Glucose 98 mg/dL (70-105); Potassium 4.3 mmol/L (3.5-5.1); Protein, Total 6.6 g/dL (6.0-8.3); Sodium 138 mmol/L (136-145)
[2018-05-08] MEDS: Famotidine 20 MG TAB PO SCH ×2 (09:07→19:44)
[2018-05-08] MEDS: Dicyclomine 10 MG CAP PO PRN (14:18)
--- NOTE | 2018-05-08 19:25 | PRG ---
DATE OF SERVICE: 05/08/2018 REASON FOR CONSULTATION: Crohn's flare. SUBJECTIVE: The patient was admitted over the weekend with complaints of significantly increased abdominal pain located in the right lower quadrant as well as increased nausea and vomiting. He was subsequently admitted to the hospital for further management of a possible Crohn's flare. Given a mild leukocytosis and significantly elevated CRP, he was started on IV steroids as well as IV fluids and has had improved status during this time. Today, he states that he is doing better when compared to yesterday, although, he does continue to have significant abdominal pain located primarily in the right lower quadrant, but also present in basically the generalized abdomen. He denies any further episodes of nausea or vomiting and currently denies any fevers, chills, or GI bleeding. His last bowel movement was approximately 2 days ago with no complaints of diarrhea during this admission. OBJECTIVE: VITAL SIGNS: Temperature 97.6, pulse 57, blood pressure 123/77, respiratory rate 16, and saturating 97% on room air. GENERAL: The patient is lying in bed, in no acute distress. Alert and oriented x4. CARDIOVASCULAR: Regular rate and rhythm. RESPIRATORY: Clear to auscultation bilaterally. ABDOMEN: Hypoactive bowel sounds. Soft. [id number] abdominal distention. Tenderness to palpation in all abdominal quadrants, but most especially in the right lower quadrant. EXTREMITIES: No cyanosis, clubbing, or edema. LABORATORY DATA: CBC with a white blood cell count of 18.1, hemoglobin 13.7, hematocrit 42.2, platelets 374. Chemistry with a sodium of 138, potassium 4.3, chloride 104, CO2 of 22, BUN 14, creatinine 0.76, glucose 98. AST 9, ALT 70, alkaline phosphatase 67, total bilirubin less than 0.2, and CRP 5.14. IMAGING DATA: No current GI imaging is available for review. ASSESSMENT AND PLAN: 1. Small bowel Crohn disease with probable current flare. 2. Nausea and vomiting. 3. Mild dehydration secondary to nausea and vomiting. The patient is presenting with fairly acute onset of worsening right lower quadrant abdominal pain, nausea, and vomiting with an elevated CRP consistent with a Crohn disease flare. Workup in the past had included both an upper and lower endoscopy that were negative for any signs of pathology with the diagnosis of Crohn disease may primarily on capsule endoscopy performed at [facility] previously. Currently, he is tolerating a liquid diet with some mild increase in abdominal pain and is requiring increased amounts of Toradol. Given the fact that Toradol is an NSAID, it could potentially exacerbate his Crohn disease due to its effect on the GI tract, so if using this medication instead of narcotics, would also coupled with the PPI. RECOMMENDATIONS: 1. We will continue IV fluid administration, but consider decreasing this to approximately 75 mL an hour if adequately tolerating a diet. 2. We would continue full liquid diet and advance as tolerated; although, I would recommend patients with this as advancing it too quickly could potentially increase his abdominal pain. 3. Pain control per Primary Team, but would couple any NSAID use with PPI administration to help protect the lining of the GI tract. 4. Continue with IV steroids for now with plan to transfer the patient to prednisone 40 mg daily before discharge. We will continue to follow. Please call with any questions. Job ID: [id number]
--- NOTE | 2018-05-08 21:27 | PDOC.PN ---
- Subjective Encounter Start Date: 05/08/18 Encounter Start Time: 12:00 Patient seen and examined for IBD flare. Abd pain improving. No BM. No N/V/ fever. No new complaints. No overnight events - Objective Resuscitation Status - Order Detail: 05/06/18 22:01 Resuscitation Status Routine Resuscitation Status: FULL: Full Resuscitation MAR Reviewed: Yes Vital Signs & Weight: Vital Signs (12 hours) Temp Pulse Resp BP BP Pulse Ox 05/08/18 19:57 97.3 F L 61 18 121/76 95 05/08/18 12:00 97.6 F 57 L 16 123/77 97 Weight Admit Weight 205 lb 6.4 oz Weight 205 lb 6.4 oz I&O: 05/07/18 05/08/18 05/09/18 06:59 06:59 06:59 Intake Total 1227 2990 Balance 1227 2990 Result Diagrams: 05/08/18 04:30 05/08/18 04:30 Phys Exam - Physical Examination Constitutional: NAD Respiratory: no wheezing, no rhonchi Cardiovascular: RRR, no rub Gastrointestinal: soft, positive bowel sounds mild gen tend +, no rebound/guarding Musculoskeletal: no edema Neurological: non-focal, moves all 4 limbs Dx/Plan - Plan DVT proph w/SCDs IMPRESSION: 1. Crohn's flare. 2. Dehydration due to poor oral intake/nausea and vomiting. 3. Hyponatremia secondary to dehydration. 4. Metabolic acidosis. 5. Gastroesophageal reflux disease. 6. Irritable bowel syndrome. 7. Diverticulosis. 8. Obesity with a BMI of 31.2. PLAN: Cont IV Steroids Reduce IVF Cont Full liqd diet No stool sample - Will cancel stool w/u Add PPI due to intermittent NSAIDs Cont pain control Review of Systems - Review of Systems Cardiovascular: negative: chest pain, palpitations, orthopnea, paroxysmal nocturnal dyspnea, edema, light headedness, other Gastrointestinal: negative: Nausea, Vomiting, Abdominal Pain, Diarrhea, Constipation, Melena, Hematochezia, Other - Medications/Allergies Allergies/Adverse Reactions: Allergies Allergy/AdvReac Type Severity Reaction Status Date / Time No Known Drug Allergies Allergy Verified 12/22/17 02:06 Medications: Current Medications Acetaminophen (Tylenol) 650 mg PO Q4H PRN PRN Reason: Headache/Fever/Mild Pain (1-3) Hydrocodone Bitart/Acetaminophen ([place] 5/325) 1 tab PO Q4H PRN PRN Reason: Moderate Pain (4-6) Stop: 05/10/18 00:29 Last Admin: 05/08/18 18:24 Dose: 1 tab Dicyclomine HCl (Bentyl) 10 mg PO QID PRN PRN Reason: GI spasm Last Admin: 05/08/18 14:18 Dose: 10 mg Docusate Sodium (Colace) 100 mg PO BID PRN PRN Reason: Constipation Last Admin: 05/07/18 12:28 Dose: 100 mg Metronidazole 500 mg/ Device 100 mls @ 100 mls/hr IVPB Q8HR [facility] Last Admin: 05/08/18 13:28 Dose: 100 mls Ciprofloxacin/Dextrose 400 mg/ (Device) 200 mls @ 200 mls/hr IVPB Q12H [facility] Last Admin: 05/08/18 09:06 Dose: 200 mls Sodium Chloride (Normal Saline 0.9%) 1,000 mls @ 75 mls/hr IV .[id number] [facility] Ketorolac Tromethamine (Toradol) 15 mg IVP ONE PRN PRN Reason: Pain Stop: 05/13/18 04:40 Last Admin: 05/08/18 05:05 Dose: 15 mg Methylprednisolone Sodium Succinate (Solu-Medrol) 40 mg IVP Q6HR [facility] Last Admin: 05/08/18 18:25 Dose: 40 mg Morphine Sulfate (Morphine) 2 mg SLOW IVP Q4H PRN PRN Reason: Pain Stop: 05/10/18 22:04 Last Admin: 05/07/18 00:01 Dose: 2 mg Morphine Sulfate (Morphine) 4 mg SLOW IVP Q4H PRN PRN Reason: Severe Pain (7-10) Stop: 05/11/18 00:28 Last Admin: 05/08/18 19:43 Dose: 4 mg Ondansetron HCl (Zofran Odt) 4 mg PO Q6H PRN PRN Reason: Nausea/Vomiting Last Admin: 05/07/18 05:30 Dose: 4 mg Ondansetron HCl (Zofran) 4 mg IVP Q6H PRN PRN Reason: Nausea/Vomiting Pantoprazole Sodium (Protonix) 40 mg PO DAILY [facility] Sodium Chloride (Flush - Normal Saline) 10 ml IVF PRN PRN PRN Reason: Saline Flush Last Admin: 05/08/18 09:05 Dose: 10 ml
[2018-05-08] MEDS ORDERED: Senokot 8.6 MG TAB PO PRN (22:11)
--- NOTE | 2018-05-08 22:46 | RAD ---
FRONTAL VIEW ABDOMEN KUB: INDICATIONS: Severe abdominal pain. Constipation. TECHNIQUE: Two views provided. FINDINGS: No free air is seen. The bowel gas pattern is nonspecific without evidence of obstruction identified . Gas is seen at the level of the rectum. Towel clips overly the medial right upper abdomen. IMPRESSION: 1. Nonspecific bowel gas pattern. 2. Examination is grossly stable to recent comparison of 05/06/2018. POS: [facility]
[2018-05-09] MEDS: HYDROcodone/Acetaminophen 5/325 mg Tablet PO PRN ×4 (00:49→17:00)
[2018-05-09] MEDS: Dicyclomine 10 MG CAP PO PRN ×4 (00:49→21:50)
[2018-05-09] MEDS ORDERED: Simethicone Chewable 80 MG TAB PO PRN (02:07)
[2018-05-09] MEDS ORDERED: Polyethylene Glycol 3350 17 GM Packet PO SCH (02:15)
[2018-05-09] MEDS: Melatonin 3 MG TAB PO PRN ×2 (02:15→21:34)
--- NOTE | 2018-05-09 02:24 | PDOC.EVN ---
Event Note - Event Note Event Note: Patient complaining of increased abdominal discomfort. Vitals stable. Does not appear to be in severe distress. On exam with slight distention. Hyperactive bowel sounds. No guarding. Discomfort in RLQ with palpation. No rigidity. Abdominal XR: without acute changes form previous. Excess flatus +, BM this evening, small amounts of hard stool. Nausea without vomiting. No blood in stools. Per RN has not been mobilizing. Given Bentyl. Prescribe Simethicone. Senna and Miralax prescribed. Likely due to constipation. Continue to monitor. Patient awaiting further imaging as per Dr. Galo. Dr. Hamilton will decrease Morphine as likely contributing to constipation.
[2018-05-09] MEDS: Metoclopramide HCl 10 MG TAB PO SCH ×2 (02:45→05:37)
[2018-05-09] MEDS: metroNIDAZOLE 500 MG in Premix Bag 1 BAG IVPB SCH (05:37)
[2018-05-09] MEDS ORDERED: Metoclopramide HCl 10 MG TAB PO SCH (07:30)
[2018-05-09] MEDS: Morphine 4 MG/ML VIAL SLOW IVP PRN ×3 (08:05→18:19)
[2018-05-09] MEDS: Polyethylene Glycol 3350 17 GM Packet PO SCH (08:06)
--- NOTE | 2018-05-09 09:01 | RAD ---
KUB AND UPRIGHT: Date: 05/09/18 HISTORY: Abdominal pain, distention. History of Crohn's. FINDINGS: The bowel gas pattern is nonobstructive. No free air. Postop cholecystectomy changes are seen. There are no significant bony findings. IMPRESSION: Unremarkable abdomen series. POS: [facility]
[2018-05-09] MEDS ORDERED: Sodium Chloride 0.9% 1,000 ML IV SCH (11:43)
[2018-05-09] MEDS: metroNIDAZOLE 500 MG TAB PO SCH ×2 (15:34→21:34)
--- NOTE | 2018-05-09 17:51 | PRG ---
DATE OF SERVICE: 05/09/2018 REASON FOR CONSULTATION: Crohn's flare. SUBJECTIVE: The patient states that his abdominal pain is improved when compared to yesterday with less in severity and frequency of the pain today. However, he still requiring a significant amount of narcotic pain medications per nursing staff, asking for pain medications roughly every 2 hours. He did have a bowel movement earlier today with a larger volume semi-solid liquid type bowel movement with no pain with defecation. He denies any further episodes of nausea, vomiting, as well as any fevers, chills, or GI bleeding. OBJECTIVE: VITAL SIGNS: Temperature 97.6, pulse 58, blood pressure 132/83, respiratory rate 16, saturating 98% on room air. GENERAL: The patient was lying in bed, in no acute distress. Alert and oriented x4. CARDIOVASCULAR: Regular rate and rhythm. RESPIRATORY: Clear to auscultation bilaterally. ABDOMEN: Hypoactive bowel sounds. Soft. Mild to moderate abdominal distention, tenderness to palpation in all abdominal quadrants, but improved from previous exam. EXTREMITIES: No cyanosis, clubbing, or edema. LABORATORY DATA: No current studies are available for review. IMAGING DATA: KUB obtained on 05/09/2018 showed nonobstructive bowel gas pattern without any evidence of free air. Otherwise, there was a relatively unremarkable abdominal series. ASSESSMENT AND PLAN: 1. Small bowel Crohn's disease with probable current flare. 2. Nausea and vomiting (resolving). 3. Mild dehydration secondary to nausea and vomiting (resolving). The patient initially presented with fairly acute onset of right lower quadrant abdominal pain, nausea, and vomiting with an elevated CRP and imaging consistent with a Crohn disease flare. Upon chart review, the patient had been diagnosed with small-bowel Crohn disease per capsule endoscopy and had negative EGD and colonoscopy in the past. Currently, tolerating a full liquid diet and is asking for something more substantial at this point, although he does continue to require a significant amount of narcotic pain medications for his abdominal pain. He did have a bowel movement as well as a negative KUB earlier today making the likelihood of a small bowel obstruction or colonic obstruction very unlikely. At this point, the current regimen of treatment is prudent with continued low rate IV fluid administration, pain control, and IV steroids for probable Crohn's flare. RECOMMENDATIONS: 1. We will continue IV fluid administration, but consider discontinuation of this if the patient is able to tolerate a fairly normal diet. 2. We will continue full liquid diet tonight, but would give the patient crackers and small food tonight and if he is able to tolerate this, I would advance his diet as tolerated tomorrow. 3. Pain control per Primary Team, but would attempt to minimize any narcotic administration as it could pose deleterious affects on the GI tract. 4. We will continue senna and MiraLAX while inpatient as part of the bowel regimen with narcotic administration. 5. Continue with IV steroids for now with the plan to transfer the patient to prednisone 40 mg daily before discharge. We will continue to follow. Please call with any questions. Job ID: [id number]
[2018-05-09] MEDS: traMADol HCl 50 MG TAB PO PRN (21:32)
[2018-05-09] MEDS: Docusate 100 MG CAP PO PRN (21:34)
[2018-05-09] MEDS: Cipro 250 MG TAB PO SCH (21:34)
--- NOTE | 2018-05-09 21:39 | PDOC.PN ---
- Subjective Encounter Start Date: 05/09/18 Encounter Start Time: 09:00 Patient seen and examined for Abd pain. Had BM. Overall feels better. No new complaints. Overnight events noted. - Objective Resuscitation Status - Order Detail: 05/06/18 22:01 Resuscitation Status Routine Resuscitation Status: FULL: Full Resuscitation MAR Reviewed: Yes Vital Signs & Weight: Vital Signs (12 hours) Temp Pulse Resp BP Pulse Ox 05/09/18 16:00 98.1 F 59 L 16 129/83 96 05/09/18 12:00 97.6 F 58 L 16 132/83 98 Weight Admit Weight 205 lb 6.4 oz Weight 205 lb 6.4 oz I&O: 05/08/18 05/09/18 05/10/18 06:59 06:59 06:59 Intake Total 2990 Balance 2990 Result Diagrams: 05/08/18 04:30 05/08/18 04:30 Radiology Reviewed by me: Yes (KUB - Neg) Phys Exam - Physical Examination Constitutional: NAD Respiratory: no wheezing, no rhonchi Cardiovascular: RRR, no rub Gastrointestinal: soft, positive bowel sounds mild gen tenderness Musculoskeletal: no edema Neurological: moves all 4 limbs Dx/Plan - Plan DVT proph w/SCDs IMPRESSION: 1. Crohn's flare. 2. Dehydration due to poor oral intake/nausea and vomiting. 3. Hyponatremia secondary to dehydration. 4. Metabolic acidosis. 5. Gastroesophageal reflux disease. 6. Irritable bowel syndrome. 7. Diverticulosis. 8. Obesity with a BMI of 31.2. PLAN: Cont IV Steroids - Will change Atbx to PO Reduce IVF Cont Full liqd diet Pain control - minimize Narcotics per GI Review of Systems - Review of Systems Respiratory: negative: Cough, Dry, Shortness of Breath, Hemoptysis, SOB with Excertion, Pleuritic Pain, Sputum, Wheezing Cardiovascular: negative: chest pain, palpitations, orthopnea, paroxysmal nocturnal dyspnea, edema, light headedness, other Gastrointestinal: negative: Nausea, Vomiting, Abdominal Pain, Diarrhea, Constipation, Melena, Hematochezia, Other - Medications/Allergies Allergies/Adverse Reactions: Allergies Allergy/AdvReac Type Severity Reaction Status Date / Time No Known Drug Allergies Allergy Verified 12/22/17 02:06 Medications: Current Medications Acetaminophen (Tylenol) 650 mg PO Q4H PRN PRN Reason: Headache/Fever/Mild Pain (1-3) Ciprofloxacin (Cipro) 250 mg PO BID@0600,1999 [facility] Last Admin: 05/09/18 21:34 Dose: 250 mg Dicyclomine HCl (Bentyl) 10 mg PO QID PRN PRN Reason: GI spasm Last Admin: 05/09/18 17:01 Dose: 10 mg Ketorolac Tromethamine (Toradol) 15 mg IVP ONE PRN PRN Reason: Pain Stop: 05/13/18 04:40 Last Admin: 05/08/18 05:05 Dose: 15 mg Melatonin (Melatonin) 3 mg PO HS PRN PRN Reason: Insomnia Last Admin: 05/09/18 21:34 Dose: 3 mg Methylprednisolone Sodium Succinate (Solu-Medrol) 40 mg IVP Q6HR [facility] Last Admin: 05/09/18 18:19 Dose: 40 mg Metronidazole (Flagyl) 500 mg PO TID [facility] Last Admin: 05/09/18 21:34 Dose: 500 mg Morphine Sulfate (Morphine) 2 mg SLOW IVP Q6H PRN PRN Reason: Severe Pain (7-10) Stop: 05/10/18 22:04 Last Admin: 05/09/18 18:19 Dose: 2 mg Pantoprazole Sodium (Protonix) 40 mg PO DAILY [facility] Last Admin: 05/09/18 08:06 Dose: 40 mg Polyethylene Glycol (Miralax) 17 gm PO DAILY [facility] Last Admin: 05/09/18 08:06 Dose: 17 gm Senna/Docusate Sodium (Senokot S) 1 tab PO BID [facility] Simethicone (Mylicon Chewable) 80 mg PO PCHS PRN PRN Reason: Gas Pain Last Admin: 05/09/18 02:15 Dose: 80 mg Sodium Chloride (Flush - Normal Saline) 10 ml IVF PRN PRN PRN Reason: Saline Flush Last Admin: 05/08/18 09:05 Dose: 10 ml Tramadol HCl (Ultram) 100 mg PO Q6H PRN PRN Reason: Moderate Pain (4-6) Last Admin: 05/09/18 21:32 Dose: 100 mg
[2018-05-09] MEDS ORDERED: Senokot S 8.6-50 MG TAB PO SCH (22:00)
[2018-05-09] MEDS ORDERED: HYDROcodone/Acetaminophen 5/325 mg Tablet PO SCH (23:24)
[2018-05-10] MEDS: Morphine 4 MG/ML VIAL SLOW IVP PRN ×2 (00:29→10:27)
[2018-05-10] MEDS: Sodium Chloride 0.9% 1,000 ML IV SCH (05:20)
[2018-05-10] MEDS: Cipro 250 MG TAB PO SCH ×2 (06:01→20:41)
[2018-05-10] MEDS: Dicyclomine 10 MG CAP PO PRN ×2 (06:44→20:41)
[2018-05-10] MEDS: Senokot S 8.6-50 MG TAB PO SCH ×2 (08:56→20:41)
[2018-05-10] MEDS: Polyethylene Glycol 3350 17 GM Packet PO SCH (08:56)
[2018-05-10] MEDS: metroNIDAZOLE 500 MG TAB PO SCH ×3 (08:57→20:41)
[2018-05-10] MEDS: traMADol HCl 50 MG TAB PO PRN (09:03)
[2018-05-10 13:22] LABS: Ref Lab Test Ordered THIO METHYLTRAN LEVE; Reference Lab Name LABCORP
[2018-05-10] MEDS: HYDROcodone/Acetaminophen 5/325 mg Tablet PO PRN (14:09)
--- NOTE | 2018-05-10 17:23 | PRG ---
DATE OF SERVICE: 05/10/2018 REASON FOR CONSULTATION: Crohn flare. SUBJECTIVE: Today, the patient states that he has had approximately 5 to 6 semi-solid or liquid bowel movements after having administration of MiraLAX over the last 24 to 48 hours. With his increased frequency of bowel movements and large volume of that, he has had significant improvement in his lower abdominal pain currently with a severity of 3/10. Per the patient, he states that he also will only require pain medication once today, but upon conferring with nursing staff, he has required three different episodes, where he asked for narcotic pain medications. Otherwise, he denies any nausea, vomiting, fevers, chills, or GI bleeding. OBJECTIVE: VITAL SIGNS: Temperature 97.4, pulse 56, blood pressure 113/78, respiratory rate 18, and saturating 98% on room air. GENERAL: The patient was lying in bed, in no acute distress. Alert and oriented x4. CARDIOVASCULAR: Regular rate and rhythm. RESPIRATORY: Clear to auscultation bilaterally. ABDOMEN: Normoactive bowel sounds. Soft. Mild abdominal distention with tenderness to palpation in the lower abdominal quadrants. EXTREMITIES: No cyanosis, clubbing, or edema. LABORATORY DATA: No current studies are available for review. DIAGNOSTIC DATA: No current GI imaging is available for review. ASSESSMENT AND PLAN: 1. Small bowel Crohn disease with probable recurrent flare. 2. Nausea and vomiting (resolving). 3. Mild dehydration secondary to nausea and vomiting (resolving). 4. Mild constipation (resolving). The patient initially presented with acute onset of right lower quadrant abdominal pain, nausea, vomiting, and elevated CRP with imaging consistent with a Crohn disease flare. With more conservative management with IV fluids, IV steroids, and pain control, the patient has significantly improved with minimal abdominal pain today. He did have some mild constipation during this hospitalization as well that has since resolved with administration of MiraLAX. KUB obtained on May 09, 2018, did not show any evidence of small bowel or large bowel obstruction and with the increased frequency of bowel movements today, it further lends itself towards improvement in his Crohn disease from an inflammatory standpoint. At this time, he is asking to go home, but has not been able to tolerate much of a solid diet during this hospitalization. I think evaluating his ability to tolerate a more solid diet prior to discharge would be prudent. RECOMMENDATIONS: 1. Would advance the patient's diet to regular diet and if able to tolerate, could be discharged to home with followup in the GI Clinic within the next 1 to 2 weeks. 2. Pain control per Primary Team, but would attempt to minimize any narcotic administration as it could pose deleterious effects on the GI tract. 3. Would hold on additional administration of Senna and MiraLAX given the increased frequency of bowel movements today. 4. We transfer the patient to prednisone 40 mg daily. This could be done tomorrow after discharge given the IV steroids that have been received today. We will sign off at this time. Please call with any questions. Job ID: [id number]
--- NOTE | 2018-05-10 17:45 | PDOC.PN ---
- Subjective Encounter Start Date: 05/10/18 Encounter Start Time: 11:30 Patient seen and examined for abd pain. Feels better. Had several BMs today. No new complaints. No overnight events - Objective Resuscitation Status - Order Detail: 05/06/18 22:01 Resuscitation Status Routine Resuscitation Status: FULL: Full Resuscitation MAR Reviewed: Yes Vital Signs & Weight: Vital Signs (12 hours) Temp Pulse Resp BP Pulse Ox 05/10/18 08:00 97.4 F L 56 L 18 113/78 98 Weight Admit Weight 205 lb 6.4 oz Weight 205 lb 6.4 oz Result Diagrams: 05/08/18 04:30 05/08/18 04:30 Phys Exam - Physical Examination Constitutional: NAD Respiratory: no wheezing, no rhonchi Cardiovascular: RRR, no rub Gastrointestinal: soft, no distention, positive bowel sounds Musculoskeletal: no edema Neurological: non-focal, moves all 4 limbs Dx/Plan - Plan DVT proph w/SCDs IMPRESSION: 1. Crohn's flare. 2. Dehydration due to poor oral intake/nausea and vomiting. 3. Hyponatremia secondary to dehydration. 4. Metabolic acidosis. 5. Gastroesophageal reflux disease. 6. Irritable bowel syndrome. 7. Diverticulosis. 8. Obesity with a BMI of 31.2. PLAN: Cont IV Steroids - At discharge, will change to Prednisone 40 mg until seen by GI Cont PO Atbx - Will dc at discharge Cont current diet Minimize Narcotics per GI Review of Systems - Review of Systems Respiratory: negative: Cough, Dry, Shortness of Breath, Hemoptysis, SOB with Excertion, Pleuritic Pain, Sputum, Wheezing Cardiovascular: negative: chest pain, palpitations, orthopnea, paroxysmal nocturnal dyspnea, edema, light headedness, other - Medications/Allergies Allergies/Adverse Reactions: Allergies Allergy/AdvReac Type Severity Reaction Status Date / Time No Known Drug Allergies Allergy Verified 12/22/17 02:06 Medications: Current Medications Acetaminophen (Tylenol) 650 mg PO Q4H PRN PRN Reason: Headache/Fever/Mild Pain (1-3) Hydrocodone Bitart/Acetaminophen ([place] 5/325) 1 tab PO Q6H PRN PRN Reason: Moderate Pain (4-6) Last Admin: 05/10/18 14:09 Dose: 1 tab Ciprofloxacin (Cipro) 250 mg PO BID@0600,2000 [id number] Last Admin: 05/10/18 06:01 Dose: 250 mg Dicyclomine HCl (Bentyl) 10 mg PO QID PRN PRN Reason: GI spasm Last Admin: 05/10/18 06:44 Dose: 10 mg Ketorolac Tromethamine (Toradol) 15 mg IVP ONE PRN PRN Reason: Pain Stop: 05/13/18 04:40 Last Admin: 05/08/18 05:05 Dose: 15 mg Melatonin (Melatonin) 3 mg PO HS PRN PRN Reason: Insomnia Last Admin: 05/09/18 21:34 Dose: 3 mg Methylprednisolone Sodium Succinate (Solu-Medrol) 40 mg IVP Q6HR [facility] Last Admin: 05/10/18 17:29 Dose: 40 mg Metronidazole (Flagyl) 500 mg PO TID [facility] Last Admin: 05/10/18 15:43 Dose: 500 mg Morphine Sulfate (Morphine) 2 mg SLOW IVP Q6H PRN PRN Reason: Severe Pain (7-10) Stop: 05/10/18 22:04 Last Admin: 05/10/18 10:27 Dose: 2 mg Pantoprazole Sodium (Protonix) 40 mg PO DAILY [facility] Last Admin: 05/10/18 08:56 Dose: 40 mg Polyethylene Glycol (Miralax) 17 gm PO DAILY [facility] Last Admin: 05/10/18 08:56 Dose: 17 gm Senna/Docusate Sodium (Senokot S) 1 tab PO BID [facility] Last Admin: 05/10/18 08:56 Dose: 1 tab Simethicone (Mylicon Chewable) 80 mg PO PCHS PRN PRN Reason: Gas Pain Last Admin: 05/09/18 02:15 Dose: 80 mg Sodium Chloride (Flush - Normal Saline) 10 ml IVF PRN PRN PRN Reason: Saline Flush Last Admin: 05/10/18 17:29 Dose: 10 ml Tramadol HCl (Ultram) 100 mg PO Q6H PRN PRN Reason: Moderate Pain (4-6) Last Admin: 05/10/18 09:03 Dose: 100 mg
[2018-05-11] MEDS: HYDROcodone/Acetaminophen 5/325 mg Tablet PO PRN (00:10)
[2018-05-11] MEDS: Cipro 250 MG TAB PO SCH (05:24)
[2018-05-11 07:37] VITALS: BP 144/95; TEMP 98.1
[2018-05-11] MEDS: metroNIDAZOLE 500 MG TAB PO SCH (09:30)
[2018-05-11] MEDS: Senokot S 8.6-50 MG TAB PO SCH (09:31)
[2018-05-11] MEDS: Polyethylene Glycol 3350 17 GM Packet PO SCH (09:31)
--- NOTE | 2018-05-11 17:14 | DIS ---
DATE OF ADMISSION: 05/06/2018 DATE OF DISCHARGE: 05/11/2018 DISCHARGE DISPOSITION: Home. FOLLOWUP: 1. Follow up with primary care physician at [facility] in 1 week. 2. Follow up with Gastroenterology, Dr. Galo in 10 days. ALLERGIES: NO KNOWN DRUG ALLERGIES. DISCHARGE MEDICATIONS: Prednisone 40 mg daily until seen by Dr. Galo, Brandi as needed, Pepcid 20 mg b.i.d., Humira 40 mg every 7 days. The patient was seen on the day of discharge. Denies any new complaints. No nausea, vomiting, or abdominal discomfort reported. BRIEF HOSPITAL COURSE: The patient is a 32-year-old male with Crohn disease diagnosed approximately 8 to 9 years ago, presented to the hospital with abdominal discomfort. Please refer to the history and physical for further details. The patient was admitted to the hospital with a diagnosis of exacerbation of Crohn disease. He showed good improvement with IV steroids, antibiotics. He was placed on a clear liquid diet that was gradually progressed. He underwent a KUB that was negative for bowel obstruction. The patient was seen by Gastroenterology Service. He has been cleared by Gastroenterology Service for discharge. TEST PENDING AT DISCHARGE: TPMT/thiopurine methyltransferase level. DISCHARGE DIAGNOSES: 1. Crohn's exacerbation. 2. Dehydration. 3. Hyponatremia, improved. 4. Metabolic acidosis. 5. Gastroesophageal reflux disease. 6. Irritable bowel syndrome. 7. Diverticulosis. 8. Obesity with a body mass index 31.2. PLAN: Plan was discussed with the patient in detail, he stated understanding. Job ID: [id number]
== END 2018-05-11 13:56 | disposition home or self-care (01) | DRG 386 ==
LOC: ERS 16:20 → ERHOLD 19:21 → ONC 22:01
PROVIDERS: ADMIT Family Medicine; ATTEND Family Medicine
DX: K50.00 Crohn's disease of small intestine without complications (principal); E87.1 Hypo-osmolality and hyponatremia; E87.2 Acidosis; K21.9 Gastro-esophageal reflux disease without esophagitis; E86.0 Dehydration; E66.9 Obesity, unspecified; K59.00 Constipation, unspecified; Z68.31 Body mass index [BMI] 31.0-31.9, adult; Z79.899 Other long term (current) drug therapy
CPT/HCPCS: 36415; 74018; 74019; 80053; 81003; 83690; 83735; 84100; 85025; 86140; 90471; 90686; 96374; 96375; 96376; G0008; J0744; J1885; J2270; J2405; J2920; J8597; Q0162

== ENCOUNTER 2018-07-26 08:19 | Emergency (ER) | payer SELFPAY ==
[2018-07-26 08:48] LABS: #Basophils 0.1 thou/uL (0.0-0.2); #Eosinphils 0.2 thou/uL (0.0-0.7); #Neutrophils 9.1 thou/uL (1.40-6.50); %Basophils 0.5 % (0.0-1.0); %Eosinophils 1.3 % (0.0-10.0); %Monocytes 8.3 % (0.0-10.0); %Neutrophils 73.9 % (42.0-75.0); Hemoglobin 14.7 g/dL (14.0-18.0); Mean Corpuscular HGB CONC 33.7 g/dL (32.0-36.0); Mean Corpuscular Hemoglobin 29.7 pg (27.0-31.0); Mean Corpuscular Volume 88.2 fL (78.0-98.0); Platelet Count 314 thou/uL (130-400); RBC Distribution Width 12.9 % (11.5-14.5); Red Blood Cell (RBC) Count 4.97 mill/uL (4.70-6.10); White Blood Cell (WBC) Count 12.3 thou/uL (4.8-10.8)
[2018-07-26 09:11] LABS: ALT (SGPT) 35 U/L (8-55); AST (SGOT) 22 U/L (5-34); Albumin 4.2 g/dL (3.5-5.0); Alkaline Phosphatase 66 U/L (40-150); Anion Gap 13 mmol/L (10-20); BUN (Urea Nitrogen) 12 mg/dL (8.9-20.6); Bilirubin, Total 0.3 mg/dL (0.2-1.2); Calc. Creatinine Clearance 0 mL/min (70-130); Calcium 9.2 mg/dL (7.8-10.44); Carbon Dioxide 22 mmol/L (22-29); Chloride 105 mmol/L (98-107); Estimated GFR-MDRD Greater than 90; Globulin 3.1 g/dL (2.4-3.5); Glucose 97 mg/dL (70-105); Lipase 10 U/L (8-78); Potassium 4.2 mmol/L (3.5-5.1); Protein, Total 7.3 g/dL (6.0-8.3); Sodium 136 mmol/L (136-145)
[2018-07-26] MEDS ORDERED: Morphine 4 MG/ML VIAL ONE ×2 (09:16→11:45)
[2018-07-26] MEDS ORDERED: Ondansetron PF 4 MG/2 ML Vial ONE (09:16)
[2018-07-26 09:55] LABS: Bilirubin Negative (Negative); Blood, Urine Negative (Negative); Glucose, Urine (Dipstick) Negative (Negative); Leukocyte Negative (Negative); Nitrite Negative (Negative); Protein, Urine (Dipstick) Negative (Neg-Trace); Urobilinogen 0.2 mg/dL (0.2-1.0); pH, Urine 6.5 (5.0-9.0)
[2018-07-26 09:57] LABS: Clarity Clear (Clear)
[2018-07-26] MEDS ORDERED: methylPREDNISolone Sod Succ/PF 125 MG/2 ML VIAL ONE (11:56)
== END 2018-07-26 12:46 | disposition home or self-care (01) ==
LOC: ERS 08:19
DX: K50.90 Crohn's disease, unspecified, without complications (principal); F17.210 Nicotine dependence, cigarettes, uncomplicated; Z79.899 Other long term (current) drug therapy
CPT/HCPCS: 36415; 80053; 81003; 83690; 85025; 96361; 96374; 96375; 96376; J2270; J2405; J2930

== ENCOUNTER 2018-08-03 07:43 | Inpatient (IN) | payer SELFPAY ==
[2018-08-03 08:40] LABS: #Basophils 0.1 thou/uL (0.0-0.2); #Eosinphils 0.1 thou/uL (0.0-0.7); #Lymphocytes 2.2 thou/uL (1.20-3.40); #Monocytes 1.6 thou/uL (0.11-0.59); %Basophils 0.5 % (0.0-1.0); %Eosinophils 0.6 % (0.0-10.0); %Lymphocytes 15.8 % (21.0-51.0); %Monocytes 11.2 % (0.0-10.0); %Neutrophils 71.8 % (42.0-75.0); Hemoglobin 14.2 g/dL (14.0-18.0); Mean Corpuscular HGB CONC 33.1 g/dL (32.0-36.0); Mean Corpuscular Volume 87.8 fL (78.0-98.0); Mean Platelet Volume 7.4 fL (7.4-10.4); Platelet Count 345 thou/uL (130-400); RBC Distribution Width 13.2 % (11.5-14.5)
[2018-08-03 08:55] LABS: ALT (SGPT) 24 U/L (8-55); AST (SGOT) 15 U/L (5-34); Albumin 4.4 g/dL (3.5-5.0); Alkaline Phosphatase 65 U/L (40-150); Anion Gap 12 mmol/L (10-20); BUN (Urea Nitrogen) 10 mg/dL (8.9-20.6); Bilirubin, Total 0.9 mg/dL (0.2-1.2); Calc. Creatinine Clearance 0 mL/min (70-130); Calcium 9.4 mg/dL (7.8-10.44); Carbon Dioxide 27 mmol/L (22-29); Chloride 100 mmol/L (98-107); Estimated GFR-MDRD Greater than 90; Globulin 2.9 g/dL (2.4-3.5); Glucose 95 mg/dL (70-105); Lipase Less than 4 U/L (8-78); Protein, Total 7.3 g/dL (6.0-8.3); Sodium 135 mmol/L (136-145)
[2018-08-03 09:27] LABS: Bilirubin Negative (Negative); Blood, Urine Negative (Negative); Clarity CLEAR (Clear); Glucose, Urine (Dipstick) Negative (Negative); Leukocyte Negative (Negative); Nitrite Negative (Negative); Protein, Urine (Dipstick) Negative (Neg-Trace); Specific Gravity, Urine 1.018 (1.002-1.036); Urobilinogen 0.2 mg/dL (0.2-1.0)
[2018-08-03] MEDS ORDERED: Morphine 4 MG/ML VIAL ONE (10:36)
--- NOTE | 2018-08-03 10:52 | RAD ---
TWO VIEWS ABDOMEN: Comparison: 05-01-18 History: Abdominal pain. Crohn's disease. FINDINGS: Supine and upright views of the abdomen shows a nonspecific, nonobstructed bowel gas pattern. Cholecy stectomy clips are seen. No free air or air fluid levels are seen on upright examination. IMPRESSION: Nonobstructed bowel gas pattern. POS: TPC
[2018-08-03] MEDS ORDERED: methylPREDNISolone Sod Succ/PF 125 MG/2 ML VIAL ONE (11:32)
[2018-08-03] MEDS ORDERED: Bisacodyl 5 MG TAB PO PRN (11:56)
[2018-08-03] MEDS ORDERED: Ondansetron PF 4 MG/2 ML Vial IVP PRN (11:56)
[2018-08-03] MEDS: Morphine 4 MG/ML VIAL SLOW IVP PRN ×3 (12:53→23:09)
--- NOTE | 2018-08-03 12:56 | HP ---
PRIMARY CARE PROVIDER: Clinic respite coordinator, Tanner Galo MD CHIEF COMPLAINT: Abdominal pain. HISTORY OF PRESENT ILLNESS: Mr. Reagan is a pleasant 33-year-old gentleman, who was seen at [facility] on August 03, 2018. He was hospitalized at this facility from May 06 to of this year for flare-up of Crohn disease. He reports that he has been on tapering steroids, which ended recently. Over the last 2 or 3 days, he has had abdominal pain. He reports that it is across his lower abdomen and lower back, sharp, 10/10, accompanied by nausea, nonradiating. He reports diarrhea over the last 3 days. He also reports blood on wiping. He denies any fevers. REVIEW OF SYSTEMS: All other systems reviewed and found to be negative. PAST MEDICAL HISTORY: Crohn disease, irritable bowel syndrome, diverticulosis, gastroesophageal reflux disease, and clostridium difficile colitis. PAST SURGICAL HISTORY: Appendectomy, cholecystectomy, and right inguinal hernia repair. FAMILY HISTORY: Mother has gastroparesis and IBS. Grandfather had colon cancer. ALLERGIES: NO KNOWN DRUG ALLERGIES. SOCIAL HISTORY: The patient denies tobacco use, alcohol use, or recreational drug use. CURRENT MEDICATIONS: None. PHYSICAL EXAMINATION: GENERAL: On examination, Mr. Reagan is awake and alert, not in acute distress. VITAL SIGNS: Blood pressure is 105/54, pulse 64, respiratory rate 17, and oxygen saturation 99% on room air. He is afebrile. EYES: No scleral icterus. No conjunctival pallor. ENT: Moist mucosal membranes. No oropharyngeal erythema or exudates. NECK: Supple and nontender. Trachea is midline. RESPIRATORY: Accessory muscles of breathing are not active. Chest wall movements are symmetric bilaterally. LUNGS: Clear to auscultation without wheeze, rhonchi, or crepitations. CARDIOVASCULAR: S1 and S2 are heard, regular. Peripheral pulses palpable. ABDOMEN: Distended, mild diffuse tenderness. No guarding or rigidity. Bowel sounds heard. SKIN: No rashes or subcutaneous nodules. LYMPHATIC: No cervical lymphadenopathy. PSYCHIATRIC: Normal mood. Normal affect. The patient is oriented to person, place, and time. NEUROLOGIC: Cranial nerves 2 through 12 are intact. MUSCULOSKELETAL: Power is 5/5 in all 4 extremities. LABORATORY DATA: Mr. Reagan's labs and investigations were reviewed. I reviewed his blood work, leukocytosis with 14,000 white cells, of which 71.8% are neutrophils. He has normal hemoglobin and normal platelet count. He has decreased sodium of 135, otherwise unremarkable comprehensive metabolic profile. C-reactive protein is elevated at 7.81. ESR is 36. Urinalysis is negative. ASSESSMENT AND PLAN: Mr. Reagan is a pleasant 33-year-old gentleman, who was seen at [facility] on August 03, 2018 His problem list includes: 1. Abdominal pain: Most likely secondary to Crohn's flare. ER physician discussed this case with his respite coordinator, who has advised the patient be started on intravenous steroids. He will be started on IV Solu-Medrol. He will also receive pain medications. 2. Gastroesophageal reflux disease: Appears to be stable. 3. Hyponatremia: Mild, likely asymptomatic, we will recheck. LEVEL OF COMPLEXITY: Moderate. LEVEL OF COMPLEXITY: Moderate. Job ID: [id number]
[2018-08-03] MEDS: Acetaminophen 325 MG TAB PO PRN (14:55)
[2018-08-03] MEDS: HYDROcodone/Acetaminophen 5/325 mg Tablet PO PRN ×2 (17:08→21:45)
[2018-08-03] MEDS: methylPREDNISolone Sod Succ 40 MG VIAL IVP SCH (21:47)
[2018-08-03] MEDS ORDERED: Sodium Chloride 0.9% 10 ML ONE (23:04)
[2018-08-03 23:17] VITALS: BMI 33.9
[2018-08-03] MEDS: Dicyclomine 10 MG CAP PO PRN (23:30)
[2018-08-04] MEDS: HYDROcodone/Acetaminophen 5/325 mg Tablet PO PRN ×4 (02:18→22:20)
[2018-08-04] MEDS ORDERED: Sodium Chloride 0.9% 10 ML ONE (04:08)
[2018-08-04] MEDS: Morphine 4 MG/ML VIAL SLOW IVP PRN ×3 (04:15→20:14)
[2018-08-04 07:44] LABS: Mean Corpuscular Hemoglobin 29.1 pg (27.0-31.0); Mean Corpuscular Volume 88.2 fL (78.0-98.0); Mean Platelet Volume 7.6 fL (7.4-10.4); Platelet Count 343 thou/uL (130-400); RBC Distribution Width 13.2 % (11.5-14.5)
[2018-08-04 07:55] LABS: Anion Gap 13 mmol/L (10-20); BUN (Urea Nitrogen) 11 mg/dL (8.9-20.6); Calc. Creatinine Clearance 201 mL/min (70-130); Calcium 9.9 mg/dL (7.8-10.44); Carbon Dioxide 22 mmol/L (22-29); Chloride 105 mmol/L (98-107); Estimated GFR-MDRD Greater than 90; Glucose 127 mg/dL (70-105); Potassium 4.4 mmol/L (3.5-5.1); Sodium 136 mmol/L (136-145)
[2018-08-04 08:36] LABS: Band 13 % (5-11); Lymphocytes 9 % (21-51); MDiff Complete? YES; Monocytes 3 % (0-10); Neutrophil 75 % (42-75); RBC Morphology Normal
[2018-08-04] MEDS: Famotidine 20 MG TAB PO SCH ×2 (09:37→20:14)
[2018-08-04] MEDS: Dicyclomine 10 MG CAP PO PRN (09:37)
[2018-08-04] MEDS: methylPREDNISolone Sod Succ 40 MG VIAL IVP SCH ×2 (09:37→20:14)
[2018-08-04] MEDS: azaTHIOprine 50 MG TAB PO SCH (09:39)
[2018-08-04] MEDS: Acetaminophen 325 MG TAB PO PRN (14:05)
--- NOTE | 2018-08-04 14:30 | PDOC.PN ---
- Subjective Encounter Start Date: 08/04/18 Encounter Start Time: 07:40 Pt seen for followup re: falreup of Crohn's disease. feels better. Abdo pain is better. - Objective MAR Reviewed: Yes Vital Signs & Weight: Vital Signs (12 hours) Temp Pulse Resp BP BP Pulse Ox 08/04/18 11:57 97.6 F 79 20 135/86 08/04/18 07:38 97.8 F 59 L 20 113/73 97 08/04/18 04:10 97.8 F 64 16 103/65 103/65 94 L Weight Weight 210 lb I&O: 08/03/18 08/04/18 08/05/18 06:59 06:59 06:59 Intake Total 1041 Balance 1041 Result Diagrams: 08/04/18 07:23 08/04/18 07:23 Additional Labs: Labs reviewed by me Phys Exam - Physical Examination Obese HEENT: moist MMs Neck: supple Respiratory: clear to auscultation bilateral Cardiovascular: RRR Gastrointestinal: soft Neurological: moves all 4 limbs Psychiatric: normal affect Dx/Plan (1) Exacerbation of Crohn's disease Code(s): K50.90 - CROHN'S DISEASE, UNSPECIFIED, WITHOUT COMPLICATIONS Status: Acute Qualifiers: Comment: Improving with steroids, continue steroids (2) Abdominal pain Code(s): R10.9 - UNSPECIFIED ABDOMINAL PAIN Status: Acute Qualifiers: Comment: Improved - Plan * . Review of Systems - Review of Systems Cardiovascular: negative: chest pain, palpitations, orthopnea, paroxysmal nocturnal dyspnea, edema, light headedness, other Gastrointestinal: Nausea, Abdominal Pain, Hematochezia. negative: Vomiting, Diarrhea, Constipation, Melena - Medications/Allergies Allergies/Adverse Reactions: Allergies Allergy/AdvReac Type Severity Reaction Status Date / Time No Known Drug Allergies Allergy Verified 12/22/17 02:06 Medications: Current Medications Acetaminophen (Tylenol) 650 mg PO Q4H PRN PRN Reason: Headache/Fever/Mild Pain (1-3) Last Admin: 08/04/18 14:05 Dose: 650 mg Hydrocodone Bitart/Acetaminophen ([place] 5/325) 1 tab PO Q4H PRN PRN Reason: Pain 4-6 Last Admin: 08/04/18 11:08 Dose: 1 tab Azathioprine (Imuran) 200 mg PO DAILY [facility] Last Admin: 08/04/18 09:39 Dose: 200 mg Bisacodyl (Dulcolax) 10 mg PO DAILYPRN PRN PRN Reason: Constipation Dicyclomine HCl (Bentyl) 10 mg PO BIDPRN PRN PRN Reason: GI Cramping Last Admin: 08/04/18 09:37 Dose: 10 mg Famotidine (Pepcid) 20 mg PO BID [facility] Last Admin: 08/04/18 09:37 Dose: 20 mg Methylprednisolone Sodium Succinate (Solu-Medrol) 40 mg IVP Q12HR [facility] Last Admin: 08/04/18 09:37 Dose: 40 mg Morphine Sulfate (Morphine) 2 mg SLOW IVP Q4H PRN PRN Reason: Pain Last Admin: 08/04/18 04:15 Dose: 2 mg Ondansetron HCl (Zofran) 4 mg IVP Q6H PRN PRN Reason: Nausea/Vomiting Sodium Chloride (Flush - Normal Saline) 10 ml IVF Q12HR [facility] Sodium Chloride (Flush - Normal Saline) 10 ml IVF PRN PRN PRN Reason: Saline Flush
--- NOTE | 2018-08-04 22:18 | CON ---
DATE OF CONSULTATION: 08/04/2018 REASON FOR CONSULTATION: Abdominal pain, probable Crohn's flare. CONSULTING PHYSICIAN: Jose Rafael Link MD HISTORY OF PRESENT ILLNESS: The patient is a 33-year-old gentleman with a past medical history of irritable bowel syndrome, diverticulosis, GERD, Clostridium difficile colitis and Crohn disease (small bowel), presenting with complaints of abdominal pain. He states that he was in his usual state of health until approximately 1 to 1-1/2 weeks ago when he had the acute onset of right lower quadrant abdominal pain. The pain was characterized as a sharp/stabbing type pain, would radiate to the suprapubic and left lower quadrant, would last for hours in duration and reach a severity of 10/10. This abdominal pain when compared to his prior Crohn's flares was very similar to what he experienced then. This was associated with increased nausea without any vomiting, but he also experienced increased diarrhea and hematochezia associated with this pain as well. In terms of his diarrhea, he was having approximately 4-8 semi-solid bowel movements per day with no difficulty with defecation with increase in the frequency of stools for the last 3 days prior to admission. He was also having small amounts of bright red blood per rectum, characterized as blood present on the toilet paper and small amounts that seen coating the stool in the toilet, but primarily only on the toilet paper. He did not endorse any additional abdominal pain with the episodes of hematochezia. He also endorses increased episodes of indigestion characterized as increased heartburn/substernal pyrosis that he has been experiencing for the last 3 to 4 days as well. So, he was ultimately evaluated in the [place] ER for this abdominal pain, was given pain medications and refilled on his immunosuppressive medications due to the fact that he had run out prior to admission. However, over the next 24 to 48 hours, he had recurrence of his right lower quadrant abdominal pain prompting his readmission to the [place] ER and re-evaluation at that time. While in the ER, he was noted to have significantly elevated ESR and CRP concerning for a possible Crohn's flare and was ultimately admitted to the hospital for further evaluation. He was placed on IV steroid shortly after admission and with initiation of steroid therapy, has been doing well. Currently, he states that his pain is significantly reduced with a current severity of 2/10. He denies any further episodes of nausea and/or vomiting, nor has he had any episodes of hematochezia since he has been inpatient. Currently, he denies nausea, vomiting, fevers, chills, hematemesis, melena, hematochezia, dysphagia, odynophagia, rashes, sudden changes in vision, increased joint pains. REVIEW OF SYSTEMS: A 10-category review of systems was obtained with all responses negative except for the pertinent positives as listed in HPI. PAST MEDICAL HISTORY: As per HPI. PAST SURGICAL HISTORY: Appendectomy, cholecystectomy, right inguinal hernia repair. FAMILY HISTORY: Mother diagnosed with gastroparesis and IBS while his grandfather had been diagnosed with colon cancer. SOCIAL HISTORY: Denies any tobacco, alcohol, or illicit drug use. OUTPATIENT MEDICATIONS: Reviewed. ALLERGIES: NO KNOWN DRUG ALLERGIES. PHYSICAL EXAMINATION: VITAL SIGNS: Temperature 97.6, pulse 79, blood pressure 135/86, respiratory rate 20, saturating 97% on room air. GENERAL: The patient is lying in bed, in no acute distress. Alert and oriented x4. HEENT: Normocephalic, atraumatic. NECK: Supple. No scleral icterus or JVD noted. CARDIOVASCULAR: Regular rate and rhythm with no discernible murmurs, gallops, or rubs. RESPIRATORY: Clear to auscultation bilaterally with no discernible wheezes or rales. ABDOMEN: Normoactive bowel sounds. Soft, nondistended. Tenderness to palpation in the right lower quadrant, suprapubic, and left lower quadrant. EXTREMITIES: No cyanosis, clubbing, or edema. LABORATORY DATA: CBC with a white blood cell count of 18, hemoglobin 14, hematocrit 42.4, platelets 343. Chemistry with a sodium of 136, potassium 4.4, chloride 105, CO2 of 22, BUN 11, creatinine 0.71, glucose 127. ESR 36, CRP 7.81. IMAGING DATA: Abdominal x-ray obtained on August 03, 2018, showed a nonobstructive bowel gas pattern with no free air or air-fluid levels seen on the upright examination. ASSESSMENT AND PLAN: The patient is a 33-year-old male with past medical history of irritable bowel syndrome, diverticulosis, gastroesophageal reflux disease, and Clostridium difficile colitis and small bowel Crohn disease presenting with right lower quadrant abdominal pain consistent with a Crohn disease flare. Crohn disease flare: The patient has had multiple hospitalizations over the last 6 to 12 months for increasing right lower quadrant abdominal pain that has been attributed to Crohn disease flares. With his small bowel Crohn disease, he has been evaluated with both esophagogastroduodenoscopy and colonoscopy that have been negative for overt findings. However, per patient, the only way that the diagnosis was made was on capsule endoscopy and he has not had any further since the evaluation being done at [facility]. At this point in time, with the increase in his lower abdominal pain, with the same character and location of his prior Crohn disease flares in conjunction with an elevated ESR and CRP (had normal ESR and CRP on June 19, 2018), it is more consistent with a Crohn disease flare. He is currently on both azathioprine and Humira as an outpatient and has been on this therapy for the last 1 to 2 months with fairly decent control of symptoms during this time. At this time, it is unclear as to why he is flaring, but may have been contributing to running out of his azathioprine as an outpatient. Current stool studies have been negative for overt pathology. RECOMMENDATIONS: 1. Would continue IV Solu-Medrol at the current dose for the next 24 hours, then transfer the patient to prednisone oral 40 mg daily with plans to initiate a longer steroid taper over the next 3 to 4 weeks (40 mg x1 week, 30 mg x1 week, 20 mg x1 week, 10 mg x1 week, then off). 2. Would continue his azathioprine at the current dosing of [address] the patient on a bowel regimen while he is here in the hospital to prevent constipation with administration of narcotics. 4. Pain control per primary team. 5. Agree with placing the patient on H2 neela for his dyspepsia/heartburn symptoms. 6. Would maintain standard acid reflux precautions while inpatient. If the patient's clinical status continues to improve, he could be potentially discharged as soon as tomorrow with the prolonged steroid taper and follow up in the GI Clinic. Dr. Chaves will be on-call this weekend. Please call with any questions. Job ID: [id number]
[2018-08-05] MEDS: Dicyclomine 10 MG CAP PO PRN (00:11)
[2018-08-05] MEDS: Morphine 4 MG/ML VIAL SLOW IVP PRN ×3 (00:12→10:29)
[2018-08-05] MEDS: HYDROcodone/Acetaminophen 5/325 mg Tablet PO PRN ×3 (03:08→12:08)
[2018-08-05 06:52] LABS: Anion Gap 12 mmol/L (10-20); BUN (Urea Nitrogen) 11 mg/dL (8.9-20.6); Calc. Creatinine Clearance 196 mL/min (70-130); Calcium 9.4 mg/dL (7.8-10.44); Carbon Dioxide 24 mmol/L (22-29); Chloride 106 mmol/L (98-107); Estimated GFR-MDRD Greater than 90; Glucose 111 mg/dL (70-105); Potassium 4.3 mmol/L (3.5-5.1); Sodium 138 mmol/L (136-145)
[2018-08-05] MEDS: Famotidine 20 MG TAB PO SCH (07:55)
[2018-08-05] MEDS: azaTHIOprine 50 MG TAB PO SCH (07:55)
[2018-08-05] MEDS: methylPREDNISolone Sod Succ 40 MG VIAL IVP SCH (07:56)
[2018-08-05 08:07] VITALS: BP 119/78; TEMP 97.4
[2018-08-05 08:23] LABS: Band 2 % (5-11); Hemoglobin 13.9 g/dL (14.0-18.0); Lymphocytes 13 % (21-51); MDiff Complete? YES; Mean Corpuscular HGB CONC 32.4 g/dL (32.0-36.0); Mean Corpuscular Volume 89.4 fL (78.0-98.0); Mean Platelet Volume 8.1 fL (7.4-10.4); Monocytes 4 % (0-10); Neutrophil 81 % (42-75); Nucleated RBC 1 % (0); Platelet Count 360 thou/uL (130-400); RBC Distribution Width 13.4 % (11.5-14.5); Red Blood Cell (RBC) Count 4.79 mill/uL (4.70-6.10); White Blood Cell (WBC) Count 20.4 thou/uL (4.8-10.8)
--- NOTE | 2018-08-07 12:08 | DIS ---
DATE OF ADMISSION: 08/04/2018 DATE OF DISCHARGE: 08/05/2018 PRIMARY CARE PROVIDER: [facility] in [place]. DISCHARGE DIAGNOSES: 1. Crohn's disease exacerbation. 2. Abdominal pain. CONDITION OF PATIENT ON THE DAY OF DISCHARGE: Stable. I assessed Mr. Reagan on the day of discharge. He denies any chest pain or shortness of breath. Abdominal pain has resolved. He does not have any blood in his stool. Vital signs are stable. S1 and S2 are heard, regular. Lungs are clear to auscultation bilaterally. Abdomen is soft and nontender, bowel sounds are heard. DISCHARGE MEDICATIONS: 1. Humira 40 mg subcutaneously every week. 2. Imuran 200 mg daily. 3. Pepcid 20 mg 2 times a day. 4. Tylenol No. 3 one tablet every 6 hours as needed. 5. Colace 100 mg 2 times a day. 6. Prednisone taper 40 mg daily for 1 week, then 30 mg daily for 1 week, then 20 mg daily for 1 week, and then 10 mg daily for 1 week. CONSULTATIONS DURING THIS HOSPITALIZATION: Gastroenterology, Dr. Galo. HOSPITAL COURSE: Mr. Reagan is a pleasant 33-year-old gentleman, who was admitted to [facility] on August 03, 2018, for a Crohn's flare. He improved with intravenous steroids. He was seen by Gastroenterology Service. He has been stepped down to oral steroids prior to discharge home. On the day of discharge, he has normal electrolytes, normal creatinine, white count 20,400, most likely secondary to steroid use, hemoglobin 13.9, and platelet count 360,000. Many thanks for allowing me to participate in your patient's care. Please feel free to contact me with any questions or concerns. DISCHARGE DESTINATION: Home. TIME SPENT: Total amount of time spent coordinating this discharge: 32 minutes. Job ID: [id number]
== END 2018-08-05 12:49 | disposition home or self-care (01) | DRG 386 ==
LOC: ERS 07:43 → 3SE 11:20 → OBSVTOIN 08-04 14:47 → T4-B 08-04 18:56
PROVIDERS: ADMIT Internal Medicine; ATTEND Internal Medicine
DX: K50.90 Crohn's disease, unspecified, without complications (principal); E87.1 Hypo-osmolality and hyponatremia; D72.829 Elevated white blood cell count, unspecified; T38.0X5A Adverse effect of glucocorticoids and synthetic analogues, initial encounter; K21.9 Gastro-esophageal reflux disease without esophagitis; Z90.49 Acquired absence of other specified parts of digestive tract; Z79.899 Other long term (current) drug therapy
CPT/HCPCS: 36415; 74019; 80048; 80053; 81003; 83605; 83690; 85025; 85652; 86140; 87045; 87046; 87449; 87899; 96361; 96374; 96375; J2270; J2405; J2920; J2930; J7500

== ENCOUNTER 2018-10-02 16:13 | Emergency (ER) | payer SELFPAY ==
[2018-10-02 17:15] LABS: #Eosinphils 0.2 thou/uL (0.0-0.7); #Lymphocytes 2.3 thou/uL (1.20-3.40); #Monocytes 0.6 thou/uL (0.11-0.59); #Neutrophils 2.7 thou/uL (1.40-6.50); %Basophils 0.8 % (0.0-1.0); %Eosinophils 2.8 % (0.0-10.0); %Lymphocytes 39.7 % (21.0-51.0); %Monocytes 10.2 % (0.0-10.0); %Neutrophils 46.6 % (42.0-75.0); Hemoglobin 14.7 g/dL (14.0-18.0); Mean Corpuscular HGB CONC 31.6 g/dL (32.0-36.0); Mean Corpuscular Hemoglobin 29.1 pg (27.0-31.0); Mean Platelet Volume 7.5 fL (7.4-10.4); Platelet Count 309 thou/uL (130-400); Red Blood Cell (RBC) Count 5.05 mill/uL (4.70-6.10); White Blood Cell (WBC) Count 5.8 thou/uL (4.8-10.8)
[2018-10-02 17:36] LABS: ALT (SGPT) 55 U/L (8-55); AST (SGOT) 31 U/L (5-34); Albumin 4.5 g/dL (3.5-5.0); Alkaline Phosphatase 65 U/L (40-150); Anion Gap 14 mmol/L (10-20); BUN (Urea Nitrogen) 10 mg/dL (8.9-20.6); Bilirubin, Total 0.8 mg/dL (0.2-1.2); Calc. Creatinine Clearance 0 mL/min (70-130); Calcium 9.3 mg/dL (7.8-10.44); Carbon Dioxide 23 mmol/L (22-29); Chloride 107 mmol/L (98-107); Estimated GFR-MDRD Greater than 90; Glucose 91 mg/dL (70-105); Lipase 5 U/L (8-78); Protein, Total 7.5 g/dL (6.0-8.3); Sodium 140 mmol/L (136-145)
[2018-10-02 18:00] LABS: Bilirubin Negative (Negative); Blood, Urine Negative (Negative); Clarity CLEAR (Clear); Glucose, Urine (Dipstick) Negative (Negative); Leukocyte Negative (Negative); Nitrite Negative (Negative); Protein, Urine (Dipstick) Negative (Neg-Trace); Specific Gravity, Urine 1.025 (1.002-1.036); Urobilinogen 0.2 mg/dL (0.2-1.0); pH, Urine 5.5 (5.0-9.0)
[2018-10-02] MEDS ORDERED: Morphine 4 MG/ML VIAL ONE (18:15)
[2018-10-02] MEDS ORDERED: Ondansetron PF 4 MG/2 ML Vial ONE (18:16)
--- NOTE | 2018-10-02 18:43 | CT ---
CT abdomen and pelvis with IV contrast HISTORY: Abdominal pain. Inflammatory bowel disease. COMPARISON: 10/24/2017. FINDINGS: Lung bases are clear. Gallbladder is surgically absent. Solid organs are intact. Tiny liver cyst is stable. No free fluid or free air. Urinary bladder is decompressed. No evidence of bowel obstruction or inflammation. Postoperative changes at the right lower quadrant. IMPRESSION: Postoperative changes. No acute abnormalities are demonstrated.
== END 2018-10-02 19:30 | disposition home or self-care (01) ==
LOC: ERS 16:13
DX: R10.31 Right lower quadrant pain (principal); K58.9 Irritable bowel syndrome, unspecified; Z87.891 Personal history of nicotine dependence; Z79.899 Other long term (current) drug therapy
CPT/HCPCS: 36415; 74177; 80053; 81003; 82274; 83690; 85025; 85652; 86140; 87086; 94760; 96374; 96375; J0500; J2270; J2405; Q9966

== ENCOUNTER 2018-10-04 12:50 | Emergency (ER) | payer SELFPAY ==
[2018-10-04] MEDS ORDERED: Ketorolac Tromethamine 30 MG/ML VIAL ONE (14:35)
== END 2018-10-04 14:35 | disposition home or self-care (01) ==
LOC: ERS 12:50
DX: R10.9 Unspecified abdominal pain (principal); Z87.891 Personal history of nicotine dependence
CPT/HCPCS: 99283; J1885

== ENCOUNTER 2021-08-29 17:21 | Emergency (ER) | payer OTHER, SELFPAY ==
[~2021-08-29 17:21] MED LIST changes: -ISOVUE-370 76%-LOCM 1 ML ONE; +Iopamidol-370 76% 500 ML 1 ML ONE
[2021-08-29 18:20] LABS: #Basophils 0.1 thou/uL (0.0-0.2); #Eosinphils 0.1 thou/uL (0.0-0.7); #Lymphocytes 1.9 thou/uL (1.20-3.40); #Monocytes 0.9 thou/uL (0.11-0.59); #Neutrophils 10.8 thou/uL (1.40-6.50); %Basophils 0.4 % (0.0-1.0); %Eosinophils 0.8 % (0.0-10.0); %Lymphocytes 13.7 % (21.0-51.0); %Monocytes 6.8 % (0.0-10.0); %Neutrophils 78.3 % (42.0-75.0); Hemoglobin 14.3 g/dL (14.0-18.0); Mean Corpuscular HGB CONC 33.3 g/dL (32.0-36.0); Mean Corpuscular Hemoglobin 30.5 pg (27.0-31.0); Mean Corpuscular Volume 91.5 fL (78.0-98.0); Mean Platelet Volume 6.8 fL (7.4-10.4); Platelet Count 272 thou/uL (130-400); RBC Distribution Width 12.4 % (11.5-14.5); Red Blood Cell (RBC) Count 4.71 mill/uL (4.70-6.10); White Blood Cell (WBC) Count 13.8 thou/uL (4.8-10.8)
[2021-08-29 18:39] LABS: ALT (SGPT) 30 U/L (8-55); AST (SGOT) 21 U/L (5-34); Albumin 4.3 g/dL (3.5-5.0); Alkaline Phosphatase 80 U/L (40-110); Anion Gap 13 mmol/L (10-20); BUN (Urea Nitrogen) 14 mg/dL (8.9-20.6); Bilirubin, Total 0.4 mg/dL (0.2-1.2); Calc. Creatinine Clearance 0 mL/min (70-130); Carbon Dioxide 23 mmol/L (22-29); Chloride 105 mmol/L (98-107); Globulin 3.3 g/dL (2.4-3.5); Glucose 120 mg/dL (70-105); Lipase 13 U/L (8-78); Potassium 4.1 mmol/L (3.5-5.1); Protein, Total 7.6 g/dL (6.0-8.3); Sodium 137 mmol/L (136-145)
[2021-08-29] MEDS ORDERED: Morphine 4 MG/ML VIAL ONE ×2 (19:03→20:55)
[2021-08-29] MEDS ORDERED: Ondansetron PF 4 MG/2 ML Vial ONE (19:04)
[2021-08-29 20:34] LABS: Bilirubin Negative (Negative); Blood, Urine Negative (Negative); Clarity Clear (Clear); Glucose, Urine (Dipstick) Normal (Negative); Ketone, Urine Negative (Negative); Leukocyte Negative Leu/uL (Negative); Nitrite Negative (Negative); Protein, Urine (Dipstick) Negative (Neg-Trace); Specific Gravity, Urine 1.045 (1.002-1.036); Urobilinogen Normal mg/dL (Less than 2); pH, Urine 5.5 (5.0-9.0)
[2021-08-29] MEDS ORDERED: Ketorolac Tromethamine 30 MG/ML VIAL ONE (20:55)
== END 2021-08-29 21:18 | disposition home or self-care (01) ==
LOC: ERS 17:21
DX: K50.90 Crohn's disease, unspecified, without complications (principal); Z87.891 Personal history of nicotine dependence
CPT/HCPCS: 36415; 74177; 80053; 81003; 83690; 85025; 96361; 96374; 96375; 96376; J1885; J2270; J2405; Q9967

== ENCOUNTER 2021-10-16 20:10 | Emergency (ER) | payer OTHER, SELFPAY | END 2021-10-16 22:06 | disposition home or self-care (01) | LOC: ERS 20:10 | DX: K50.90 Crohn's disease, unspecified, without complications (principal); F17.290 Nicotine dependence, other tobacco product, uncomplicated | CPT/HCPCS: 99283 ==

== ENCOUNTER 2021-12-30 15:32 | Emergency (ER) | payer OTHER ==
[2021-12-30 16:09] LABS: #Eosinphils 0.1 thou/uL (0.0-0.7); #Lymphocytes 3.1 thou/uL (1.20-3.40); #Monocytes 0.7 thou/uL (0.11-0.59); #Neutrophils 9.3 thou/uL (1.40-6.50); %Basophils 0.3 % (0.0-1.0); %Eosinophils 0.7 % (0.0-10.0); %Lymphocytes 23.6 % (21.0-51.0); %Neutrophils 70.4 % (42.0-75.0); Mean Corpuscular HGB CONC 32.3 g/dL (32.0-36.0); Mean Corpuscular Volume 89.6 fL (78.0-98.0); Mean Platelet Volume 6.7 fL (7.4-10.4); Platelet Count 428 thou/uL (130-400); RBC Distribution Width 13.2 % (11.5-14.5); Red Blood Cell (RBC) Count 4.82 mill/uL (4.70-6.10); White Blood Cell (WBC) Count 13.3 thou/uL (4.8-10.8)
[2021-12-30] MEDS ORDERED: Morphine 4 MG/ML VIAL ONE (16:32)
[2021-12-30] MEDS ORDERED: Ondansetron PF 4 MG/2 ML Vial ONE (16:32)
[2021-12-30 16:37] LABS: Albumin 4.1 g/dL (3.5-5.0)
[2021-12-30 16:38] LABS: Chloride 103 mmol/L (98-107); Potassium 3.5 mmol/L (3.5-5.1); Sodium 138 mmol/L (136-145)
[2021-12-30 16:39] LABS: Calcium 9.7 mg/dL (7.8-10.44); Glucose 99 mg/dL (70-105)
[2021-12-30 16:40] LABS: Globulin 3.8 g/dL (2.4-3.5); Protein, Total 7.9 g/dL (6.0-8.3)
[2021-12-30 16:41] LABS: Anion Gap 15 mmol/L (10-20); Bilirubin, Total 0.2 mg/dL (0.2-1.2); Carbon Dioxide 24 mmol/L (22-29)
[2021-12-30 16:43] LABS: Alkaline Phosphatase 79 U/L (40-110); Calc. Creatinine Clearance 0 mL/min (70-130); Estimated GFR 106
[2021-12-30 16:44] LABS: BUN (Urea Nitrogen) 19 mg/dL (8.9-20.6)
[2021-12-30 16:45] LABS: ALT (SGPT) 26 U/L (8-55); AST (SGOT) 17 U/L (5-34)
[2021-12-30 16:46] LABS: Lipase 18 U/L (8-78)
[2021-12-30 17:28] LABS: Bilirubin Negative (Negative); Blood, Urine Negative (Negative); Clarity Turbid (Clear); Glucose, Urine (Dipstick) Normal (Negative); Ketone, Urine Negative (Negative); Leukocyte Negative Leu/uL (Negative); Nitrite Negative (Negative); Protein, Urine (Dipstick) Negative (Neg-Trace); Urobilinogen Normal mg/dL (Less than 2); pH, Urine 7.5 (5.0-9.0)
[2021-12-30] MEDS ORDERED: Ketorolac Tromethamine 30 MG/ML VIAL ONE (17:58)
[2021-12-30] MEDS ORDERED: methylPREDNISolone Sod Succ/PF 125 MG/2 ML VIAL ONE (18:45)
[2021-12-30] MEDS ORDERED: HYDROmorphone 0.5 MG/0.5 ML SYRINGE ONE (18:45)
== END 2021-12-30 19:38 | disposition home or self-care (01) ==
LOC: ERS 15:32
DX: K50.90 Crohn's disease, unspecified, without complications (principal); Z87.891 Personal history of nicotine dependence
CPT/HCPCS: 36415; 74177; 80053; 81003; 83605; 83690; 85025; 87040; 96374; 96375; J1170; J1885; J2270; J2405; J2930; Q9967

== ENCOUNTER 2022-02-26 11:02 | Emergency (ER) | payer OTHER ==
[2022-02-26] MEDS ORDERED: Morphine 4 MG/ML VIAL ONE ×2 (11:43→13:05)
[2022-02-26] MEDS ORDERED: Ketorolac Tromethamine 30 MG/ML VIAL ONE (11:44)
[2022-02-26 11:57] LABS: #Eosinphils 0.1 thou/uL (0.0-0.7); #Lymphocytes 2.6 thou/uL (1.20-3.40); #Neutrophils 8.3 thou/uL (1.40-6.50); %Basophils 0.4 % (0.0-1.0); %Eosinophils 0.8 % (0.0-10.0); %Lymphocytes 21.6 % (21.0-51.0); %Monocytes 8.4 % (0.0-10.0); %Neutrophils 68.8 % (42.0-75.0); Hemoglobin 15.2 g/dL (14.0-18.0); Mean Corpuscular HGB CONC 33.7 g/dL (32.0-36.0); Mean Corpuscular Hemoglobin 30.1 pg (27.0-31.0); Mean Corpuscular Volume 89.3 fl (78.0-98.0); Mean Platelet Volume 7.4 fL (7.4-10.4); Platelet Count 255 10x3/uL (130-400); RBC Distribution Width 13.2 % (11.5-14.5); Red Blood Cell (RBC) Count 5.06 mill/uL (4.70-6.10); White Blood Cell (WBC) Count 12.1 10x3/uL (4.8-10.8)
[2022-02-26 12:03] LABS: ALT (SGPT) 30 U/L (8-55); AST (SGOT) 20 U/L (5-34); Albumin 4.5 g/dL (3.5-5.0); Alkaline Phosphatase 82 U/L (40-110); Anion Gap 15 mmol/L (10-20); BUN (Urea Nitrogen) 10 mg/dL (8.9-20.6); Calc. Creatinine Clearance 0 mL/min (70-130); Calcium 9.3 mg/dL (7.8-10.44); Carbon Dioxide 23 mmol/L (22-29); Chloride 100 mmol/L (98-107); Estimated GFR 120; Globulin 3.1 g/dL (2.4-3.5); Glucose 90 mg/dL (70-105); Lipase 9 U/L (8-78); Potassium 3.5 mmol/L (3.5-5.1); Protein, Total 7.6 g/dL (6.0-8.3); Sodium 134 mmol/L (136-145)
[2022-02-26 12:26] LABS: Bilirubin Negative (Negative); Blood, Urine Negative (Negative); Clarity Clear (Clear); Glucose, Urine (Dipstick) Normal (Negative); Ketone, Urine Negative (Negative); Leukocyte Negative Leu/uL (Negative); Nitrite Negative (Negative); Protein, Urine (Dipstick) 20 mg/dL (Neg-Trace); Urobilinogen Normal mg/dL (Less than 2); pH, Urine 7.5 (5.0-9.0)
== END 2022-02-26 14:20 | disposition home or self-care (01) ==
LOC: ERS 11:02
DX: R10.31 Right lower quadrant pain (principal); Z87.891 Personal history of nicotine dependence
CPT/HCPCS: 36415; 71045; 74018; 80053; 81003; 83690; 85025; 96361; 96374; 96375; 96376; J1885; J2270

== ENCOUNTER 2022-07-16 17:39 | Observation (INO) | payer OTHER ==
[~2022-07-16 17:39] MED LIST changes: -Iopamidol-370 76% 500 ML 1 ML ONE; +Iopamidol-370 76% 500 ML MDV (1 ML CHARGE) ONE
[2022-07-16 18:18] LABS: #Basophils 0.1 thou/uL (0.0-0.2); #Eosinphils 0.1 thou/uL (0.0-0.7); #Lymphocytes 3.4 thou/uL (1.20-3.40); #Neutrophils 8.2 thou/uL (1.40-6.50); %Basophils 0.9 % (0.0-1.0); %Eosinophils 0.7 % (0.0-10.0); %Lymphocytes 26.8 % (21.0-51.0); %Monocytes 7.6 % (0.0-10.0); %Neutrophils 63.9 % (42.0-75.0); Hemoglobin 15.2 g/dL (14.0-18.0); Mean Corpuscular HGB CONC 33.4 g/dL (32.0-36.0); Mean Corpuscular Hemoglobin 29.7 pg (27.0-31.0); Mean Corpuscular Volume 88.7 fl (78.0-98.0); Platelet Count 399 10x3/uL (130-400); RBC Distribution Width 12.4 % (11.5-14.5); Red Blood Cell (RBC) Count 5.12 mill/uL (4.70-6.10); White Blood Cell (WBC) Count 12.8 10x3/uL (4.8-10.8)
[2022-07-16] MEDS ORDERED: Ondansetron PF 4 MG/2 ML Vial ONE ×2 (18:31→20:01)
[2022-07-16] MEDS ORDERED: Morphine 4 MG/ML VIAL ONE ×2 (18:31→20:01)
[2022-07-16 18:41] LABS: ALT (SGPT) 41 U/L (8-55); AST (SGOT) 23 U/L (5-34); Albumin 4.5 g/dL (3.5-5.0); Alkaline Phosphatase 85 U/L (40-110); Anion Gap 16 mmol/L (10-20); BUN (Urea Nitrogen) 14 mg/dL (8.9-20.6); Bilirubin, Total 0.4 mg/dL (0.2-1.2); Calc. Creatinine Clearance 0 mL/min (70-130); Calcium 9.8 mg/dL (7.8-10.44); Carbon Dioxide 25 mmol/L (22-29); Chloride 101 mmol/L (98-107); Estimated GFR 115; Globulin 3.8 g/dL (2.4-3.5); Glucose 93 mg/dL (70-105); Potassium 3.7 mmol/L (3.5-5.1); Protein, Total 8.3 g/dL (6.0-8.3); Sodium 138 mmol/L (136-145)
[2022-07-16 19:27] LABS: Bilirubin Negative (Negative); Blood, Urine Negative (Negative); Clarity Clear (Clear); Glucose, Urine (Dipstick) Normal (Negative); Ketone, Urine Negative (Negative); Leukocyte Negative Leu/uL (Negative); Nitrite Negative (Negative); Protein, Urine (Dipstick) 20 mg/dL (Neg-Trace); Specific Gravity, Urine 1.025 (1.002-1.036); Urobilinogen Normal mg/dL (Less than 2)
[2022-07-16] MEDS ORDERED: Calcium Carbonate 500 MG ChewTAB PO PRN (21:30)
[2022-07-16] MEDS ORDERED: Ondansetron ODT 4 MG TAB PO PRN (21:30)
[2022-07-16] MEDS ORDERED: Ondansetron PF 4 MG/2 ML Vial IVP PRN (21:30)
[2022-07-16] MEDS ORDERED: Morphine 4 MG/ML VIAL SLOW IVP PRN (21:34)
[2022-07-16] MEDS ORDERED: HYDROmorphone 0.5 MG/0.5 ML SYRINGE ONE (22:18)
[2022-07-16 23:12] VITALS: BMI 35.1
[2022-07-16] MEDS: Lactated Ringer's 1,000 ML IV SCH (23:47)
[2022-07-17] MEDS: Dicyclomine 10 MG CAP PO PRN ×3 (00:02→23:16)
[2022-07-17] MEDS: Acetaminophen 325 MG TAB PO PRN ×2 (01:59→06:01)
[2022-07-17] MEDS ORDERED: Ketorolac Tromethamine 30 MG/ML VIAL IVP SCH (03:15)
[2022-07-17 07:03] LABS: #Basophils 0.1 thou/uL (0.0-0.2); #Eosinphils 0.1 thou/uL (0.0-0.7); #Lymphocytes 3.6 thou/uL (1.20-3.40); #Monocytes 1.3 thou/uL (0.11-0.59); #Neutrophils 6.6 thou/uL (1.40-6.50); %Basophils 0.8 % (0.0-1.0); %Eosinophils 0.8 % (0.0-10.0); %Lymphocytes 31.1 % (21.0-51.0); %Monocytes 10.8 % (0.0-10.0); %Neutrophils 56.5 % (42.0-75.0); Hemoglobin 12.8 g/dL (14.0-18.0); Mean Corpuscular HGB CONC 33.8 g/dL (32.0-36.0); Mean Corpuscular Hemoglobin 30.2 pg (27.0-31.0); Mean Corpuscular Volume 89.4 fl (78.0-98.0); Mean Platelet Volume 7.3 fL (7.4-10.4); Platelet Count 314 10x3/uL (130-400); RBC Distribution Width 12.5 % (11.5-14.5); Red Blood Cell (RBC) Count 4.23 mill/uL (4.70-6.10); White Blood Cell (WBC) Count 11.7 10x3/uL (4.8-10.8)
[2022-07-17 08:02] LABS: ALT (SGPT) 28 U/L (8-55); AST (SGOT) 14 U/L (5-34); Albumin 3.8 g/dL (3.5-5.0); Alkaline Phosphatase 68 U/L (40-110); Anion Gap 14 mmol/L (10-20); BUN (Urea Nitrogen) 10 mg/dL (8.9-20.6); Bilirubin, Total 0.9 mg/dL (0.2-1.2); Calc. Creatinine Clearance 164 mL/min (70-130); Calcium 9.4 mg/dL (7.8-10.44); Carbon Dioxide 23 mmol/L (22-29); Chloride 104 mmol/L (98-107); Estimated GFR 115; Globulin 2.9 g/dL (2.4-3.5); Glucose 91 mg/dL (70-105); Potassium 3.8 mmol/L (3.5-5.1); Protein, Total 6.7 g/dL (6.0-8.3); Sodium 137 mmol/L (136-145)
[2022-07-17] MEDS: Lactated Ringer's 1,000 ML IV SCH (08:45)
[2022-07-17] MEDS: Pantoprazole 40 MG VIAL IVP SCH (08:47)
[2022-07-17] MEDS ORDERED: azaTHIOprine 50 MG TAB PO SCH (09:00)
[2022-07-17] MEDS: Morphine 2 MG/ML VIAL SLOW IVP PRN ×4 (09:09→23:10)
[2022-07-17] MEDS ORDERED: Amitriptyline HCl 10 MG TAB PO SCH (14:15)
[2022-07-17] MEDS ORDERED: Polyethylene Glycol 3350 17 GM Packet PO SCH (14:15)
[2022-07-17] MEDS ORDERED: HYOSCYAMINE 0.375 MG PO SCH (21:00)
[2022-07-18] MEDS: Morphine 2 MG/ML VIAL SLOW IVP PRN (06:37)
[2022-07-18 08:15] VITALS: BP 101/68; TEMP 98
[2022-07-18 08:30] LABS: Anion Gap 9 mmol/L (10-20); BUN (Urea Nitrogen) 8 mg/dL (8.9-20.6); Calc. Creatinine Clearance 168 mL/min (70-130); Calcium 9.3 mg/dL (7.8-10.44); Carbon Dioxide 29 mmol/L (22-29); Chloride 105 mmol/L (98-107); Estimated GFR 115; Glucose 96 mg/dL (70-105); Sodium 139 mmol/L (136-145)
[2022-07-18 08:33] LABS: Band 3 % (5-11); Hemoglobin 13.3 g/dL (14.0-18.0); Lymphocytes 47 % (21-51); MDiff Complete? YES; Mean Corpuscular HGB CONC 32.2 g/dL (32.0-36.0); Mean Corpuscular Hemoglobin 29.2 pg (27.0-31.0); Mean Corpuscular Volume 90.8 fl (78.0-98.0); Mean Platelet Volume 6.9 fL (7.4-10.4); Monocytes 11 % (0-10); Neutrophil 30 % (42-75); Platelet Count 337 10x3/uL (130-400); Platelet Morphology Comment Appears Adequate; RBC Distribution Width 12.3 % (11.5-14.5); RBC Morphology Normal; Reactive Lymphocytes 9 % (0-10); Red Blood Cell (RBC) Count 4.55 mill/uL (4.70-6.10); White Blood Cell (WBC) Count 5.1 10x3/uL (4.8-10.8)
[2022-07-18] MEDS: Pantoprazole 40 MG VIAL IVP SCH (08:40)
[2022-07-18] MEDS ORDERED: Polyethylene Glycol 3350 17 GM Packet PO SCH (09:00)
[2022-07-18] MEDS ORDERED: Amlodipine 5 MG TAB PO SCH (09:00)
[2022-07-18] MEDS ORDERED: DULoxetine 30 MG CAP PO SCH (09:00)
[2022-07-18] MEDS ORDERED: Amitriptyline HCl 10 MG TAB PO SCH (21:00)
[2022-07-19 11:04] LABS: Campy jejuni + coli by PCR Negative (Negative); STEC Shiga Toxin 1+2 Negative (Negative); Salmonella spp. by PCR Negative (Negative); Shigella spp + EIEC by PCR Negative (Negative)
== END 2022-07-18 12:18 | disposition home or self-care (01) ==
LOC: ERS 17:39 → T4-B 21:33
PROVIDERS: ADMIT Hospitalist; ATTEND Hospitalist
DX: K58.1 Irritable bowel syndrome with constipation (principal); K59.9 Functional intestinal disorder, unspecified; K76.0 Fatty (change of) liver, not elsewhere classified; F17.290 Nicotine dependence, other tobacco product, uncomplicated; I10 Essential (primary) hypertension; Z79.620 Long term (current) use of immunosuppressive biologic; Z79.899 Other long term (current) drug therapy; Z90.49 Acquired absence of other specified parts of digestive tract
CPT/HCPCS: 36415; 71045; 74177; 80048; 80053; 81003; 83605; 83630; 85025; 85652; 86140; 87040; 87077; 87086; 87149; 87505; 96375; 96376; C9113; G0378; J1170; J1885; J2270; J2272; J2405; J7120; J7500; Q9967

== ENCOUNTER 2022-11-09 08:19 | Emergency (ER) | payer OTHER ==
[2022-11-09 09:23] LABS: #Basophils 0.1 thou/uL (0.0-0.2); #Eosinphils 0.1 thou/uL (0.0-0.7); #Monocytes 0.6 thou/uL (0.11-0.59); #Neutrophils 3.2 thou/uL (1.40-6.50); %Basophils 0.7 % (0.0-1.0); %Eosinophils 1.4 % (0.0-10.0); %Lymphocytes 43.7 % (21.0-51.0); %Monocytes 7.8 % (0.0-10.0); %Neutrophils 45.7 % (42.0-75.0); Hemoglobin 14.2 g/dL (14.0-18.0); Mean Corpuscular HGB CONC 32.1 g/dL (32.0-36.0); Mean Corpuscular Hemoglobin 28.9 pg (27.0-31.0); Mean Platelet Volume 9.4 fL (7.4-10.4); Platelet Count 374 10x3/uL (130-400); RBC Distribution Width 14.1 % (11.5-14.5); Red Blood Cell (RBC) Count 4.91 mill/uL (4.70-6.10); White Blood Cell (WBC) Count 7.1 10x3/uL (4.8-10.8)
[2022-11-09 09:59] LABS: ALT (SGPT) 27 U/L (8-55); AST (SGOT) 16 U/L (5-34); Albumin 4.3 g/dL (3.5-5.0); Alkaline Phosphatase 77 U/L (40-110); Anion Gap 16 mmol/L (10-20); BUN (Urea Nitrogen) 10 mg/dL (8.9-20.6); Bilirubin, Total 0.3 mg/dL (0.2-1.2); Calc. Creatinine Clearance 0 mL/min (70-130); Calcium 9.7 mg/dL (7.6-10.4); Carbon Dioxide 23 mmol/L (22-29); Chloride 105 mmol/L (98-107); Estimated GFR 117; Globulin 3.4 g/dL (2.4-3.5); Glucose 99 mg/dL (70-105); Lipase 6 U/L (8-78); Potassium 4.5 mmol/L (3.5-5.1); Protein, Total 7.7 g/dL (6.0-8.3); Sodium 139 mmol/L (136-145)
[2022-11-09 10:02] LABS: Bacteria/HPF None Seen HPF (None Seen); Bilirubin Negative (Negative); Blood, Urine Negative (Negative); CAUTI Indications for Culture Dysuria,urgency,freq; Clarity Clear (Clear); Glucose, Urine (Dipstick) Normal (Negative); Ketone, Urine Negative (Negative); Leukocyte Negative Leu/uL (Negative); Nitrite Negative (Negative); Protein, Urine (Dipstick) Negative (Neg-Trace); RBC/HPF 0-3 HPF (0-3); Specific Gravity, Urine 1.024 (1.002-1.036); Squamous Epithelial None Seen HPF (0-3); Urobilinogen Normal mg/dL (Less than 2); WBC/HPF 0-3 HPF (0-3)
[2022-11-09 10:03] LABS: Urine Culture Reflex No No
[2022-11-09] MEDS ORDERED: Ondansetron PF 4 MG/2 ML Vial ONE (10:16)
[2022-11-09] MEDS ORDERED: Morphine 4 MG/ML VIAL ONE ×2 (10:16→11:04)
[2022-11-09] MEDS ORDERED: Iopamidol-370 76% 500 ML MDV (1 ML CHARGE) ONE (10:33)
[2022-11-09] MEDS ORDERED: Ketorolac Tromethamine 30 MG/ML VIAL ONE (11:08)
== END 2022-11-09 12:17 | disposition home or self-care (01) ==
LOC: ERS 08:19
DX: R10.11 Right upper quadrant pain (principal); R10.33 Periumbilical pain; R11.2 Nausea with vomiting, unspecified; R19.7 Diarrhea, unspecified
CPT/HCPCS: 36415; 74022; 74177; 80053; 81001; 83690; 85025; 96361; 96374; 96375; 96376; J1885; J2270; J2405; Q9967

== ENCOUNTER 2022-11-10 15:59 | Emergency (ER) | payer OTHER ==
[2022-11-10] MEDS ORDERED: Ondansetron PF 4 MG/2 ML Vial ONE (16:13)
[2022-11-10] MEDS ORDERED: Morphine 4 MG/ML VIAL ONE ×2 (16:13→16:47)
[2022-11-10] MEDS ORDERED: Dicyclomine 20 MG/2 ML VIAL ONE (16:14)
[2022-11-10 16:31] LABS: #Basophils 0.1 thou/uL (0.0-0.2); #Eosinphils 0.1 thou/uL (0.0-0.7); #Monocytes 0.7 thou/uL (0.11-0.59); #Neutrophils 7.9 thou/uL (1.40-6.50); %Basophils 0.5 % (0.0-1.0); %Eosinophils 0.8 % (0.0-10.0); %Lymphocytes 25.3 % (21.0-51.0); %Monocytes 6.2 % (0.0-10.0); %Neutrophils 66.8 % (42.0-75.0); Hemoglobin 15.6 g/dL (14.0-18.0); Mean Corpuscular HGB CONC 33.2 g/dL (32.0-36.0); Mean Corpuscular Volume 87.4 fl (78.0-98.0); Mean Platelet Volume 9.4 fL (7.4-10.4); Platelet Count 438 10x3/uL (130-400); RBC Distribution Width 13.6 % (11.5-14.5); Red Blood Cell (RBC) Count 5.38 mill/uL (4.70-6.10); White Blood Cell (WBC) Count 11.9 10x3/uL (4.8-10.8)
[2022-11-10 16:55] LABS: ALT (SGPT) 31 U/L (8-55); AST (SGOT) 17 U/L (5-34); Albumin 4.5 g/dL (3.5-5.0); Alkaline Phosphatase 90 U/L (40-110); Anion Gap 17 mmol/L (10-20); BUN (Urea Nitrogen) 9 mg/dL (8.9-20.6); Bilirubin, Total 0.2 mg/dL (0.2-1.2); Calc. Creatinine Clearance 0 mL/min (70-130); Calcium 10.4 mg/dL (7.8-10.44); Carbon Dioxide 25 mmol/L (22-29); Chloride 101 mmol/L (98-107); Estimated GFR 90; Globulin 4.3 g/dL (2.4-3.5); Glucose 109 mg/dL (70-105); Lipase 11 U/L (8-78); Potassium 3.9 mmol/L (3.5-5.1); Protein, Total 8.8 g/dL (6.0-8.3); Sodium 139 mmol/L (136-145)
== END 2022-11-10 17:34 | disposition home or self-care (01) ==
LOC: ERS 15:59
DX: R10.9 Unspecified abdominal pain (principal)
CPT/HCPCS: 80053; 83690; 85025; 94760; 96372; 96374; 96375; 96376; J2270; J2405

== ENCOUNTER 2023-08-30 16:15 | Emergency (ER) | payer OTHER ==
[2023-08-30] MEDS ORDERED: Ketorolac Tromethamine 30 MG (1 mL) VIAL ONE (18:43)
[2023-08-30] MEDS ORDERED: Ondansetron PF 4 MG/2 ML Vial ONE (18:43)
[2023-08-30] MEDS ORDERED: Pantoprazole 40 MG VIAL ONE (18:43)
[2023-08-30 19:45] LABS: #Basophils 0.07 10x3/uL (0.0-0.2); %Basophils 0.8 % (0.0-1.0); %Eosinophils 3.7 % (0.0-10.0); %Monocytes 6.3 % (0.0-10.0); %Neutrophils 53.3 % (42.0-75.0); Hematocrit 43.5 % (42.0-52.0); Hemoglobin 14.8 g/dL (14.0-18.0); Mean Corpuscular Hemoglobin 29.3 pg (27.0-31.0); Mean Corpuscular Volume 86.1 fL (78.0-98.0); Mean Platelet Volume 9.3 fL (7.4-10.4); Platelet Count 378 10x3/uL (130-400); RBC Distribution Width 13.9 % (11.5-14.5); Red Blood Cell (RBC) Count 5.05 mill/uL (4.70-6.10)
[2023-08-30 19:51] LABS: Bacteria/HPF None Seen HPF (None Seen); Bilirubin Negative (Negative); Blood, Urine Negative (Negative); CAUTI Indications for Culture Fever or rigors; Clarity Clear (Clear); Glucose, Urine (Dipstick) Normal (Negative); Ketone, Urine Negative (Negative); Leukocyte Negative Leu/uL (Negative); Nitrite Negative (Negative); Protein, Urine (Dipstick) Negative (Neg-Trace); RBC/HPF 0-3 HPF (0-3); Specific Gravity, Urine 1.028 (1.002-1.036); Squamous Epithelial None Seen HPF (0-3); Urobilinogen Normal mg/dL (Less than 2); WBC/HPF 0-3 HPF (0-3); pH, Urine 5.5 (5.0-9.0)
[2023-08-30 19:52] LABS: Urine Culture Reflex No No
[2023-08-30 20:04] LABS: ALT (SGPT) 32 U/L (8-55); AST (SGOT) 23 U/L (5-34); Albumin 3.9 g/dL (3.5-5.0); Alkaline Phosphatase 98 U/L (40-110); Anion Gap 15 mmol/L (10-20); BUN (Urea Nitrogen) 14 mg/dL (8.9-20.6); Bilirubin, Total 0.3 mg/dL (0.2-1.2); Calc. Creatinine Clearance 0 mL/min (70-130); Calcium 9.6 mg/dL (7.8-10.44); Carbon Dioxide 22 mmol/L (22-29); Chloride 106 mmol/L (98-107); Estimated GFR 118; Globulin 4.3 g/dL (2.4-3.5); Glucose 90 mg/dL (70-105); Lipase 21 U/L (8-78); Potassium 3.9 mmol/L (3.5-5.1); Protein, Total 8.2 g/dL (6.0-8.3); Sodium 139 mmol/L (136-145)
[2023-08-30 20:06] LABS: Troponin I Less than 0.010 ng/mL (< 0.028)
[2023-08-30] MEDS ORDERED: Lidocaine 2% Viscous 10 mL, Alum & Magn 30 mL SSW SCH (20:15)
== END 2023-08-30 21:21 | disposition home or self-care (01) ==
LOC: ERS 16:15
DX: R10.9 Unspecified abdominal pain (principal); R11.10 Vomiting, unspecified; R19.7 Diarrhea, unspecified; Z87.891 Personal history of nicotine dependence
CPT/HCPCS: 36415; 71045; 80053; 81001; 83605; 83690; 84484; 85025; 93005; 96374; 96375; C9113; J1885; J2405

== ENCOUNTER 2023-09-14 12:14 | Emergency (ER) | payer OTHER ==
[2023-09-14] MEDS ORDERED: Dicyclomine 20 MG/2 ML VIAL ONE (12:39)
== END 2023-09-14 13:28 | disposition left against medical advice (07) ==
LOC: ERS 12:14
DX: R10.31 Right lower quadrant pain (principal); R10.32 Left lower quadrant pain; K58.9 Irritable bowel syndrome, unspecified; Z87.891 Personal history of nicotine dependence; Z79.899 Other long term (current) drug therapy
CPT/HCPCS: 74022; 96372

== ENCOUNTER 2023-09-27 09:10 | Outpatient (CLI) | payer OTHER ==
[2023-09-27 13:10] LABS: #Basophils 0.06 10x3/uL (0.0-0.2); #Eosinphils 0.16 10x3/uL (0.0-0.5); #Monocytes 0.44 10x3/uL (0.0-1.1); %Eosinophils 2.6 % (0.0-6.0); %Lymphocytes 36.2 % (18.0-47.0); %Neutrophils 52.6 % (40.0-75.0); Hematocrit 46.1 % (38.8-50.0); Hemoglobin 15.5 g/dL (13.5-17.5); Mean Corpuscular HGB CONC 33.6 g/dL (32.0-36.0); Mean Corpuscular Hemoglobin 29.4 pg (27.0-33.0); Mean Corpuscular Volume 87.3 fL (81.2-95.1); Mean Platelet Volume 9.7 fL (7.4-10.4); Platelet Count 450 10x3/uL (150-450); RBC Distribution Width 13.3 % (11.5-14.5); Red Blood Cell (RBC) Count 5.28 10x6/uL (4.32-5.72); White Blood Cell (WBC) Count 6.3 10x3/uL (3.5-10.5)
[2023-09-27 13:32] LABS: Anion Gap 14 mmol/L (10-20); BUN (Urea Nitrogen) 12 mg/dL (8.9-20.6); Calc. Creatinine Clearance 0 mL/min (70-130); Calcium 9.5 mg/dL (7.8-10.44); Carbon Dioxide 25 mmol/L (22-29); Chloride 103 mmol/L (98-107); Estimated GFR 117; Glucose 82 mg/dL (70-105); Potassium 4.4 mmol/L (3.5-5.1); Sodium 138 mmol/L (136-145)
== END 2023-09-27 09:11 | disposition home or self-care (01) ==
LOC: LABBT 09:10
PROVIDERS: ATTEND Surgery
DX: Z01.818 Encounter for other preprocedural examination (principal); K66.0 Peritoneal adhesions (postprocedural) (postinfection); R10.31 Right lower quadrant pain
CPT/HCPCS: 80048; 85025; 93005; 93010

== ENCOUNTER 2023-09-29 08:44 | Day surgery (SDC) | payer OTHER ==
[2023-09-27 09:41] VITALS: BMI 32.8
[2023-09-29] MEDS ORDERED: Midazolam HCl 2 mg/2 ml Vial ONE (11:01)
[2023-09-29] MEDS ORDERED: Rocuronium Bromide 10 MG/ML (10ML VIAL) ONE ×3 (11:19→11:56)
[2023-09-29] MEDS ORDERED: PROPOFOL 40 ML ONE (11:19)
[2023-09-29] MEDS ORDERED: Lidocaine 1% PF 5 ML VIAL ONE ×2 (11:19→11:56)
[2023-09-29] MEDS ORDERED: Sodium Chloride 0.9% 100 ML ONE (11:31)
[2023-09-29] MEDS ORDERED: CEFAZOLIN 2 GM VIAL ONE (11:31)
[2023-09-29] MEDS ORDERED: Bupivacaine 0.25% HCL 30 ML VIAL ONE ×2 (11:52→12:39)
[2023-09-29] MEDS ORDERED: EPINEPHrine 1 MG/ML VIAL ONE (11:52)
[2023-09-29] MEDS ORDERED: Ondansetron PF 4 MG/2 ML Vial ONE (11:56)
[2023-09-29] MEDS ORDERED: Dexamethasone 4 mg/ml Vial ONE (11:56)
[2023-09-29] MEDS ORDERED: SUGAMMADEX SODIUM 200 MG/2 ML VIAL ONE (11:56)
[2023-09-29] MEDS ORDERED: fentaNYL PF 100 MCG/2 ML SYRINGE ONE (11:59)
[2023-09-29] MEDS ORDERED: ePHEDrine Sulfate 50 MG/10 ML VIAL ONE (12:38)
[2023-09-29] MEDS ORDERED: Glycopyrrolate 0.2 MG/ML 5 ML SYRINGE ONE (12:45)
[2023-09-29] MEDS ORDERED: fentaNYL 50 mcg/mL 1 mL Vial ONE ×4 (13:15→14:22)
[2023-09-29] MEDS ORDERED: Ketorolac Tromethamine 30 MG (1 mL) VIAL ONE (13:17)
[2023-09-29] MEDS ORDERED: HYDROmorphone 0.5 MG/0.5 ML SYRINGE ONE (14:35)
[2023-09-29] MEDS ORDERED: HYDROcodone/Acetaminophen 5/325 mg Tablet ONE (15:09)
[2023-09-29] MEDS ORDERED: Promethazine HCl 25 MG/ML VIAL ONE (15:14)
== END 2023-09-29 16:00 | disposition home or self-care (01) ==
LOC: SDC 08:44
PROVIDERS: ATTEND Surgery
PROC: 0DB84ZX Excision of Small Intestine, Percutaneous Endoscopic Approach, Diagnostic (ICD-10-PCS; principal; 2023-09-29)
DX: K65.4 Sclerosing mesenteritis (principal); K66.0 Peritoneal adhesions (postprocedural) (postinfection); K50.90 Crohn's disease, unspecified, without complications; G89.29 Other chronic pain; E66.9 Obesity, unspecified; Z68.33 Body mass index [BMI] 33.0-33.9, adult; Z87.891 Personal history of nicotine dependence; Z79.899 Other long term (current) drug therapy; Z90.49 Acquired absence of other specified parts of digestive tract
CPT/HCPCS: 80048; 85025; 88305; 93005; 93010; J0171; J0665; J1100; J1170; J1885; J2250; J2405; J2550; J2704; J3010; J3490